=== PATIENT | female | born 1970 ===

== ENCOUNTER 2016-12-02 13:27 | Inpatient (IN) ==
--- NOTE | 2016-12-02 14:22 | Emergency Department Note ---
Ken Moya Hilary, am scribing for, and in the presence of, Colt Thomas MD 13:55. William Moya Phillip K, MD, personally performed the services described in this documentation, ascribed by Adelaide Rogers in my presence, and it is both accurate and complete [id number] . Arrival - Arrival Chief Complaint: Extremity Problem ED Nursing Triage Note: gangrene lt pointer finger. Mode of Arrival: Stretcher Limitations: Uncooperative (was sleeping and wouldnt wake up) Source: RN Notes Reviewed Time Seen by Provider: 12/02/16 13:37 - History of Present Illness HPI Narrative: Pt is a 46 y/o female brought into the ED via EMS from [place] with c/o gangrene on pts left 4th digit. HPI is limited due to pt sleeping and not providing any information. Pt has a Left foot BKA, Right forefoot amputation, and amputation of 1st - 4th digit on her right hand. At [place] her WBC was normal, H/H was 14 and 47, Glucose was 232 and Creatine was 4.4. Allergies/Adverse Reactions: Allergies Allergy/AdvReac Type Severity Reaction Status Date / Time No Known Allergies Allergy Unverified 07/26/16 23:06 Home Medications: Home Medications Medication Instructions Recorded Confirmed Type Calcium Acetate [Phoslo] 667 mg PO BID W/MEALS capsule 11/06/15 07/16/16 Rx Insulin Lispro [HumaLOG] See Protocol SUBCUT ACHS ml 11/06/15 07/16/16 Rx Insulin Detemir [Levemir] 5 unit SUBCUT BEDTIME #0 02/07/16 07/16/16 Rx HYDROcodone/ACETAMIN 5-325 [E[place] 1 tablet PO Q4H PRN #5 tablet 07/16/16 Rx 5-325] Unable To Obtain [Unable to Obtain] 07/26/16 07/26/16 History Review of System - Review of System ROS unobtainable: due to mental status Medical,Surgical,& Family Hx - Medical History Cardio: History of: Cerebrovascular Disease (questionable TIA), CHF, Hypertension, [place] No history of: CAD Psychological: History of: Anxiety Disorders, Depression Neurology: History of: Cerebrovascular Accident, TIA No history of: Seizures HEENT: History of: Eye Problem (Poor Vision) Endocrine: History of: Diabetes Mellitus (IDDM), Dyslipidemia Respiratory: History of: Obstructive Sleep Apnea Renal: History of: Dialysis (Tues, Thur, Sat), Renal Failure Musculoskeletal: History of: Amputation (Right Foot; Left BKA; Right second, third, and fourth digit amputation), Musculoskeletal Problems (Arthritis) Hematology: History of: Anemia Reproductive: No history of: Complication Other: History of: Skin Problems (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) No history of: Anesthesia Reactions - Surgical History Cardiac Surgeries: Patient Denies: Cardiac Catheterization Neurologic Surgeries: Patient denies: Neurologic Surgery HEENT Surgeries: Patient denies: Eye Surgery, Tonsilectomy & Adenoidectomy Abdominal Surgeries: Surgical HX of: Appendectomy Patient denies: Abdominal Surgery Reproductive Surgeries: Surgical HX of;: Section, Gynecologic Surgery Patient denies;: Genitourinary Surgery Orthopedic Surgeries: Surgical HX of;: Implanted Devices (Right Subclavian Dilaysis Catheter), Orthopedic Surgery (Left BKA, Right Foot Amputation) - Family History Family History: Reports;: Family Cancer, Family Diabetes, Family Heart Disease, Family Hypertension - Social History Smoking Status: Smoker, status unknown Frequency of Alcohol Use: None Type of Drug Use: None Exam Vital Signs: Vital Signs Temperature 98.9 F 12/02/16 13:28 Pulse Rate 100 H 12/02/16 13:28 Respiratory Rate 18 12/02/16 13:28 Blood Pressure 113/88 12/02/16 13:28 O2 Sat by Pulse Oximetry 97 12/02/16 13:28 - General Exam limited due to: uncooperative - Head Head exam: Present: atraumatic, normocephalic - ENT ENT exam: Present: other (poor dentition) - Neck Neck exam: Present: full ROM, trachea midline. Absent: tenderness - Chest Chest inspection: Present: symmetric chest wall rise - Respiratory Respiratory exam: Present: normal lung sounds bilaterally - Cardiovascular Cardiovascular exam: Present: normal rhythm, tachycardia - Abdominal Exam Abdominal exam: Present: soft. Absent: distention - Extremities Exam Extremities exam: Present: other (Pt has a left BKA, Right forefoot amputation, 1st - 4th digits amputated on right hand and gangrene on left hand 4th digit) - Back Exam Back exam: Present: full ROM - Psychiatric Psychiatric exam: Present: other (Pt would not wake up, answer questions or follow commands) - Skin Skin exam: Present: warm, dry, intact Disposition Clinical Impression: gangrene left fourth finger, Diabetes mellitus, End stage renal disease on dialysis Case discussed with: patient Disposition: Still a Patient Condition: Guarded Additional Instructions: Admit to
--- NOTE | 2016-12-02 16:04 | General Surgery Consult Note ---
Assessment and Plan (1) Dry gangrene Status: Acute Assessment and plan: Dry gangrene of the left ring finger with surrounding cellulitis. Recommend IV antibiotics which will allow the cellulitis to calm down in the digit to further declare itself. We will request arteriogram from interventional radiology and appreciate their assistance. In the interim, provide wound care and symptom management with medication for pruritus and pain. The patient's family member described the long-term plan patient will be hospice upon discharge. Further surgical planning pending patient's response to this plan of care. Current Visit: Yes History of Present Illness Chief complaint: Gangrene left ring finger History of present illness: Ms. Leonard is a 46 year old female with extensive medical history including end- stage renal disease on dialysis Friday schedule, CAD status post [place] and cardiac catheterization, CHF, CVA and seizures presenting to the emergency department with complaints of a left gangrenous finger. Patient has undergone multiple amputations including left BKA, right transmetatarsal mutation, multiple amputations of digits of the left hand. Family members present assisting in the history according the patient's current condition began approximately 10-14 days ago with the patient biting the tip of her finger. He was initially treated with local care, but this quickly progressed to involve the entire finger and the tip of the digit is no longer present. Patient complains of there is pain and pruritus associated, but no active drainage, fever or chills. The patient has multiple, severe comorbidities and the family has recently had hospice consultation in their home although she is not officially on hospice at this time. Family member present reports this will be the dissipated plan upon discharge, but they want her current finger handled so that she is no longer pain. Home Medications Medication Instructions Recorded Confirmed Type Calcium Acetate [Phoslo] 667 mg PO BID W/MEALS capsule 11/06/15 12/02/16 Rx Insulin Lispro [HumaLOG] See Protocol SUBCUT ACHS ml 11/06/15 12/02/16 Rx Insulin Detemir [Levemir] 5 unit SUBCUT BEDTIME #0 02/07/16 12/02/16 Rx Allergies Allergy/AdvReac Type Severity Reaction Status Date / Time No Known Allergies Allergy Unverified 07/26/16 23:06 Medical,Surgical,& Family Hx - Medical History Cardio: History of: Cerebrovascular Disease (questionable TIA), CHF, Hypertension, [place] No history of: CAD Psychological: History of: Anxiety Disorders, Depression Neurology: History of: Cerebrovascular Accident, TIA No history of: Seizures HEENT: History of: Eye Problem (Poor Vision) Endocrine: History of: Diabetes Mellitus (IDDM), Dyslipidemia Respiratory: History of: Obstructive Sleep Apnea Renal: History of: Dialysis (Tues, Thur, Sat), Renal Failure Musculoskeletal: History of: Amputation (Right Foot; Left BKA; Right second, third, and fourth digit amputation), Musculoskeletal Problems (Arthritis) Hematology: History of: Anemia Reproductive: No history of: Complication Other: History of: Skin Problems (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) No history of: Anesthesia Reactions - Surgical History Cardiac Surgeries: Sugical HX of: Vascular Access Devices Patient Denies: Cardiac Catheterization Neurologic Surgeries: Patient denies: Neurologic Surgery HEENT Surgeries: Patient denies: Eye Surgery, Tonsilectomy & Adenoidectomy Abdominal Surgeries: Surgical HX of: Appendectomy Patient denies: Abdominal Surgery Reproductive Surgeries: Surgical HX of;: Section, Gynecologic Surgery Patient denies;: Genitourinary Surgery Orthopedic Surgeries: Surgical HX of;: Implanted Devices (Right Subclavian Dilaysis Catheter), Orthopedic Surgery (Left BKA, Right Foot Amputation) Additional Surgical History: Multiple amputations - Family History Family History: Reports;: Family Cancer, Family Diabetes, Family Heart Disease, Family Hypertension - Social History Smoking Status: Smoker, status unknown Frequency of Alcohol Use: None Type of Drug Use: None - Constitutional Constitutional: Present: as per HPI - Cardiovascular Cardiovascular: Absent: chest pain at rest, orthopnea, palpitations - Respiratory Respiratory: Absent: cough - Gastrointestinal Gastrointestinal: Absent: abdominal pain, diarrhea, nausea, vomiting - Genitourinary Genitourinary: Absent: dysuria, hematuria Hematologic/Lymphatic: Absent: easy bleeding, easy bruising Exam - Constitutional Vitals: Period Temp Pulse Resp BP Sys/Jaimes Pulse Ox Last 24 Hr 98.9 F-98.9 F 100-100 18-18 113-113/88-88 97 General appearance: other (Chronically ill-appearing with multiple amputation sites.) - Head Head exam: Present: normocephalic, atraumatic - Eye Eye exam: Absent: conjunctival injection, periorbital swelling, scleral icterus - ENT Mouth exam: Present: other (Poor dentition) - Neck Neck exam: Present: other (Radial pulse 1+. Ulnar pulse thready.) - Respiratory Respiratory exam: Present: clear to auscultation bilaterally - Cardiovascular Cardiovascular exam: Present: RRR - GI/Abdominal GI/Abdominal exam: Present: normal bowel sounds, soft. Absent: distended - Extremities Exam Extremities exam: Present: other (Appetite patient sites clean and dry noted of the left BKA stump, right transmit residual limb, and right hand residual. Left hand and forearm with discoloration and arterial ulcerations throughout which are dry. The there is dry gangrene noted of the full length of the right ring finger with the majority of the distal phalanx absent. There is associated erythema and edema into the palm of the hand which is tender with the patient and extends to the adjacent digits and the long finger is also concerning for vascular compromise with deeper arterial ulceration noted over the dorsum at the level of the MCP joint. Cap refill is 34 seconds in the remaining digits except for the fourth digit.) - Neurological Exam Neurological exam: Present: alert, oriented X3 Results - Labs Labs: Outside studies reviewed this patient was transferred from [facility] : White blood cell count 8.5, hemoglobin 14; BMP with sodium 137 potassium 3.1 chloride 98 CO2 24.3 BUN 44 creatinine 4.4 blood glucose 232
--- NOTE | 2016-12-02 16:40 | XRay Report ---
Referring Physician: JOSE Kraus Exam: XR hand 3V LT Date: December 02, 2016 at 4:22 PM Reason: Gangrene left ring finger Comparison: Left finger x-rays December 02, 2016 at 11:50 AM Findings: There has been amputation of the fourth digit to the PIP joint. The skin in this region is irregular, which may be related to a wound. There is also ill-defined lucency within the fourth middle phalanx and distal aspect of the fourth proximal phalanx, which may be related to osteomyelitis. There is diffuse demineralization at the left hand and left wrist. Mild reabsorption is seen at the distal tuft of the second distal phalanx. This is nonspecific and can be seen in various processes. No acute fracture is identified. There is extensive arterial calcification. Impression: 1. There has been amputation of the fourth digit to the PIP joint. The skin is irregular in this region, which may be related to a wound. 2. There is mild scattered lucency within the left fourth middle phalanx and distal aspect of the left fourth proximal phalanx. This could represent osteomyelitis. However, correlation with a bone scan or MRI is recommended. 3. There appears to be diffuse demineralization at the left hand and wrist and nonspecific reabsorption at the distal tuft of the distal second phalanx. 4. Extensive arterial calcification. PROCEDURE INTERPRETED AT [facility] DEPARTMENT OF RADIOLOGY Final Report Signed by: Dr. Danny iL
--- NOTE | 2016-12-02 16:48 | Hospitalist History & Physical ---
<Shane Dimas - Last Filed: 12/02/16 16:34> Assessment and Plan - Time spent with patient Time spent with patient: Greater than 30 minutes (1) Dry gangrene Status: Acute Assessment and plan: Consult general surgery. Start empiric antibiotic coverage. Current Visit: Yes (2) ESRD (end stage renal disease) on dialysis Status: Acute Assessment and plan: Consult nephrology for continued dialysis. Current Visit: No (3) Diabetes mellitus Status: Acute Assessment and plan: Initiate SSI and basal for coverage until with can reconcile home meds. Accu- cheks ACHS Current Visit: Yes History of Present Illness Chief complaint: Dry gangrene History of present illness: Ms. Leonard is an unfortunate 46 year old female with a history significant for diabetes mellitus, hypertension, CHF, and TIA with several amputations who presents to the ED as a transfer from [facility] for further evaluation of a gangrenous left fourth digit. The patient has had several amputations including a left BKA, right transmetatarsal amputation, four digits of the right hand with 2nd digit preservation. On exam, the patient is not very responsive; however, the patient's daughter is at bedside and assisted with history stating that this began approx. 2 weeks ago with necrosis of the tip of the left ring finger. It has quickly progressed to involve the entire finger down to the PIP. Apparently, a home health nurse was concerned with the patient' s finger and recommended she go to the [facility] for evaluation. There, she was seen in the ED and transferred here to [facility] for further evaluation. General surgery is following and will evaluate prospect of amputation. Daughter states that the patient has had a recent decrease in appetite and a dry cough. She complains of pain pruritis associated with the finger but no drainage. She will be admitted to hospital medicine service for further evaluation and management with empiric antibiotic coverage. Case has been discussed with Dr. Chambers who will follow with an addendum. Home Medications Medication Instructions Recorded Confirmed Type Calcium Acetate [Phoslo] 667 mg PO BID W/MEALS capsule 11/06/15 12/02/16 Rx Insulin Lispro [HumaLOG] See Protocol SUBCUT ACHS ml 11/06/15 12/02/16 Rx Insulin Detemir [Levemir] 5 unit SUBCUT BEDTIME #0 02/07/16 12/02/16 Rx Allergies Allergy/AdvReac Type Severity Reaction Status Date / Time No Known Allergies Allergy Unverified 07/26/16 23:06 Medical,Surgical,& Family Hx - Medical History Cardio: History of: Cerebrovascular Disease (questionable TIA), CHF, Hypertension, [place] No history of: CAD Psychological: History of: Anxiety Disorders, Depression Neurology: History of: Cerebrovascular Accident, TIA No history of: Seizures HEENT: History of: Eye Problem (Poor Vision) Endocrine: History of: Diabetes Mellitus (IDDM), Dyslipidemia Respiratory: History of: Obstructive Sleep Apnea Renal: History of: Dialysis (Tues, Thur, Sat), Renal Failure Musculoskeletal: History of: Amputation (Right Foot; Left BKA; Right second, third, and fourth digit amputation), Musculoskeletal Problems (Arthritis) Hematology: History of: Anemia Reproductive: No history of: Complication Other: History of: Skin Problems (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) No history of: Anesthesia Reactions - Surgical History Cardiac Surgeries: Sugical HX of: Vascular Access Devices Patient Denies: Cardiac Catheterization Neurologic Surgeries: Patient denies: Neurologic Surgery HEENT Surgeries: Patient denies: Eye Surgery, Tonsilectomy & Adenoidectomy Abdominal Surgeries: Surgical HX of: Appendectomy Patient denies: Abdominal Surgery Reproductive Surgeries: Surgical HX of;: Section, Gynecologic Surgery Patient denies;: Genitourinary Surgery Orthopedic Surgeries: Surgical HX of;: Implanted Devices (Right Subclavian Dilaysis Catheter), Orthopedic Surgery (Left BKA, Right Foot Amputation) - Family History Family History: Reports;: Family Cancer, Family Diabetes, Family Heart Disease, Family Hypertension - Social History Smoking Status: Never smoker Frequency of Alcohol Use: None Type of Drug Use: None Marital Status: Lives With:: Spouse Functional capacity: bed bound - Constitutional Constitutional: Present: fatigue, weakness. Absent: night sweats, weight gain - EENT Eyes: Absent: blurry vision, loss of vision Ears: Absent: decreased hearing, ear pain Nose, mouth and throat: Absent: headache(s), neck mass, neck pain - Cardiovascular Cardiovascular: Absent: chest pain at rest, chest pain with activity, dyspnea, edema, radiating jaw, neck or arm pain - Respiratory Respiratory: Present: cough. Absent: hemoptysis, wheezing - Gastrointestinal Gastrointestinal: Absent: abdominal pain, change in bowel habits, diarrhea, nausea, vomiting - Genitourinary Genitourinary: Absent: difficulty urinating, dysuria - Musculoskeletal Musculoskeletal: Absent: arthralgias, joint swelling, muscle weakness - Neurological Neurological: Absent: abnormal speech, dizziness - Psychiatric Psychiatric: Absent: anxiety, depression - Endocrine Endocrine: Absent: cold intolerance, fatigue, heat intolerance - Hematologic/Lymphatic Hematologic/Lymphatic: Absent: easy bleeding, easy bruising Exam - Constitutional General appearance: no acute distress, under weight - Head Head exam: Present: normocephalic, atraumatic - Eye Eye exam: Present: EOMI. Absent: conjunctival injection, laceration to eyelids - ENT ENT exam: Present: normal exam, normal external ear exam - Neck Neck exam: Present: normal inspection. Absent: lymphadenopathy, tenderness, thyromegaly - Respiratory Respiratory exam: Present: decreased breath sounds. Absent: rhonchi, wheezes - Cardiovascular Cardiovascular exam: Present: regular rate and rhythm. Absent: carotid bruit - GI/Abdominal GI/Abdominal exam: Present: normal bowel sounds, soft. Absent: distended, firm , mass - Extremities Exam Extremities exam: Present: other (L BKA, R transmetatarsal amputation, multiple digit amputation of right hand) - Back Exam Back exam: Absent: CVA tenderness (L), CVA tenderness (R) - Psychiatric Psychiatric exam: Present: flat affect - Skin Skin exam: Present: abrasion, other (ecchymosis, gangrenous left 4th digit) <Valeriy Chambers - Last Filed: 12/02/16 17:16> History of Present Illness History of present illness: Ms. Leonard is a 46 year old female with a past medical history of type 1 diabetes mellitus, peripheral arterial disease status post a right transmetatarsal amputation, a left below knee amputation, amputations of the 4 digits of the right hand, hypertension, coronary artery disease, congestive heart failure, cerebrovascular disease, and end-stage renal disease on hemodialysis. As noted by physician assistant manager quality management Shane Dimas, approximately 2 weeks prior to admission she began to develop necrosis of the tip of the left right ring finger ultimately extending to involve the entire finger. She went to [facility] for evaluation from which she was transferred to [facility] for further evaluation and management. She has been previously under the care of general surgery at this facility for her previously noted amputations. I have examined the patient, reviewed all the pertinent laboratory and imaging test results, and discussed with the family, physician assistant manager quality management GABRIEL Braga, and general surgery my assessment and plans. She will be begun on intravenous antibiotics and undergo peripheral angiography at the request of general surgery to evaluate for any further surgical procedures.
[2016-12-02] MEDS ORDERED: GLUCAGON 1 MG VIAL IM PRN (17:03)
[2016-12-02] MEDS ORDERED: ACETAMINOPHEN 325 MG TABLET PO PRN (17:03)
[2016-12-02] MEDS ORDERED: DEXTROSE 50% 25 GM/50 ML VIAL IV PRN (17:03)
[2016-12-02] MEDS ORDERED: ONDANSETRON 4 MG/2 ML VIAL IV PRN (17:03)
[2016-12-02] MEDS ORDERED: ZALEPLON 5 MG CAPSULE PO PRN (17:03)
[2016-12-02] MEDS ORDERED: LACTULOSE 20 GM/30 ML UDCUP PO PRN (17:03)
[2016-12-02] MEDS ORDERED: DOCUSATE SODIUM 100 MG CAPSULE PO PRN (17:03)
[2016-12-02 17:56] LABS: Basophils # 0.1 10*3/uL (0.0-0.2); Basophils % 0.6 % (0.0-0.8); Eosinophils # 0.1 10*3/uL (0.0-0.87); Eosinophils % 1.3 % (0.00-10.9); Hematocrit 43.8 VOL% (35.7-47.0); Hemoglobin 13.9 GM/DL (12.0-16.0); Immature Granulocytes % 0.3 %; Immature Granulocytes Absolute 0.03 #; Lymphocytes # 1.4 10*3/uL (1.4-4.0); Lymphocytes % 14.2 % (21.3-54.2); Mean Corpuscular HGB Conc 31.7 GM/DL (32-36); Mean Corpuscular Hemoglobin 28 PG (27-34); Mean Platelet Volume 11.6 FL (9.6-12.0); Monocytes # 0.6 10*3/uL (0.11-0.8); Monocytes % 5.9 % (1.7-12.7); Neutrophils # 7.8 10*3/uL (1.4-7.4); Neutrophils % 77.7 % (38.7-73.9); Platelet Count 180 T/CUMM (130-400); Red Blood Count 4.98 MC/CUMM (3.8-5.5); Red Cell Distribution Width 15.6 % (9.3-17.3)
[2016-12-02 18:19] LABS: Calcium 8.7 MG/DL (8.5-10.1); Magnesium 2.3 MG/DL (1.8-2.4); Osmolality,Calculated 289.8 MOS/KG (273-304); Potassium 4.5 MMOL/L (3.5-5.1); Risk Ratio 2.64; VLDL CHOLESTEROL 23.6 MG/DL
[2016-12-02] MEDS: INSULIN LISPRO 100 UNIT/ML SUBCUT SCH (20:44)
[2016-12-02] MEDS: INSULIN GLARGINE 100 UNIT/ML SUBCUT SCH (20:45)
--- NOTE | 2016-12-03 07:43 | Hospitalist Progress Note ---
Assessment and Plan (1) Dementia Status: Acute Assessment and plan: The patient is unresponsive. Her family states that she does not interact with them except for painful stimuli. No intervention is planned at this time. Current Visit: Yes (2) Peripheral vascular disease due to secondary diabetes mellitus Problem details: S/p transmetatarsal amputation of the right forefoot. Also with new c/o of pain in the left lateral foot and lower leg. Status: Chronic Assessment and plan: He was undergone multiple amputation procedures as indicated above. Current Visit: No (3) Poorly controlled type 1 diabetes mellitus Status: Acute Assessment and plan: Her blood glucose on admission was 197. She is presently being treated with glargine insulin 10 units subcutaneous twice daily and sliding scale regular insulin coverage. Current Visit: No (4) Ischemic necrosis of finger Status: Acute Assessment and plan: She is admitted to the hospital with dry gangrene of the third finger of her left hand. Management at the present time includes intravenous antibiotics and surgical decision as per Drs. Arreola and Ailyn Current Visit: No (5) ESRD (end stage renal disease) on dialysis Problem details: No acute indication for HD today. Status: Chronic Assessment and plan: She will continue regularly scheduled hemodialysis as per nephrology. Current Visit: No Hospitalist: Subjective Interval history: Ms. Leonard is a 46-year-old with multiple medical problems including the following: Severe peripheral vascular disease including a left below-knee amputation, right transmetatarsal amputation, and multiple amputations of digits of the left hand; end-stage renal disease on hemodialysis ; type 1 diabetes mellitus; coronary artery disease; cerebrovascular disease; seizure disorder; congestive heart failure; and dementia. She was rehospitalized here yesterday with gangrene involving the third finger of her right hand. She was seen in consultation by Dr. Robertson of general surgery. He recommended that she be treated with intravenous antibiotics and has consulted Dr. Arreola who has performed the previous surgical procedures on the patient. The patient does not communicate and the family is receptive to hospice care. She appears comfortable at the present time. Exam - Constitutional Vitals: Period Temp Pulse Resp BP Sys/Jaimes Pulse Ox Last 24 Hr 98.2 F-99.1 F 60-101 16-20 111-123/80-92 96-100 General appearance: no acute distress, cachectic - Head Head exam: Present: normal inspection, normocephalic - Eye Eye exam: Present: EOMI Pupils: Present: OXANA - Neck Neck exam: Present: normal inspection - Respiratory Respiratory exam: Present: clear to auscultation bilaterally - Cardiovascular Cardiovascular exam: Present: regular rate and rhythm - GI/Abdominal GI/Abdominal exam: Present: normal bowel sounds, soft, other (Nontender with no palpable masses or hepatosplenomegaly) - Extremities Exam Extremities exam: Present: other (Amputations as indicated above and gangrene involving the third finger of the left hand.) - Back Exam Back exam: Present: normal inspection - Neurological Exam Neurological exam: Present: other (Responsive to pain but not to conversation) - Skin Skin exam: Present: normal color, warm, dry Results - Labs CBC & BMP: 12/02/16 17:43 12/02/16 17:43 Quality Measures - Stroke Symptom Onset Unknown: No
[2016-12-03] MEDS: INSULIN LISPRO 100 UNIT/ML SUBCUT SCH ×4 (07:58→22:16)
--- NOTE | 2016-12-03 08:32 | Nephrology Consult Note ---
History of Present Illness Chief complaint: ESRD History of present illness: Ms. Leonard is a 46 year old female with end-stage renal disease and severe peripheral vascular disease she has had amputations of fingers on both hands and has active wounds on the left hand. She is been receiving IV antibiotics and wound care. The antibiotics were given during hemodialysis. She dialyzes on a Friday schedule in [place] and we will dialyze her while she is here. On exam she is apathetic as is her baseline she is very thin lady she is awake does make eye contact with does not engage in conversation today. Chest is clear with a hyperdynamic precordium heart without rub or gallop abdomen soft nontender extremities are very small she has a right groin dialysis catheter in place. Heavily dressed left hand is present and several fingers have been amputated from the right hand. Impression chronic wounds #2 end-stage renal disease Plan will dialyze while here and we can continue her IV antibiotics. Home Medications Medication Instructions Recorded Confirmed Type Calcium Acetate [Phoslo] 667 mg PO BID W/MEALS capsule 11/06/15 12/02/16 Rx Allergies Allergy/AdvReac Type Severity Reaction Status Date / Time No Known Allergies Allergy Verified 12/02/16 18:00 Medical,Surgical,& Family Hx - Medical History Cardio: History of: Cerebrovascular Disease (questionable TIA), CHF, Hypertension, [place] No history of: CAD Psychological: History of: Anxiety Disorders, Depression Neurology: History of: Cerebrovascular Accident, TIA No history of: Seizures HEENT: History of: Eye Problem (Poor Vision) Endocrine: History of: Diabetes Mellitus (IDDM), Dyslipidemia Respiratory: History of: Obstructive Sleep Apnea Renal: History of: Dialysis (, Fri), Renal Failure Musculoskeletal: History of: Amputation (Right Foot; Left BKA; Right second, third, and fourth digit amputation), Musculoskeletal Problems (Arthritis) Hematology: History of: Anemia Reproductive: No history of: Complication Other: History of: Skin Problems (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) No history of: Anesthesia Reactions - Surgical History Cardiac Surgeries: Sugical HX of: Vascular Access Devices Patient Denies: Cardiac Catheterization Neurologic Surgeries: Patient denies: Neurologic Surgery HEENT Surgeries: Patient denies: Eye Surgery, Tonsilectomy & Adenoidectomy Abdominal Surgeries: Surgical HX of: Appendectomy Patient denies: Abdominal Surgery Reproductive Surgeries: Surgical HX of;: Section, Gynecologic Surgery Patient denies;: Genitourinary Surgery Orthopedic Surgeries: Surgical HX of;: Implanted Devices (Right Subclavian Dilaysis Catheter), Orthopedic Surgery (Left BKA, Right Foot Amputation) - Family History Family History: Reports;: Family Cancer, Family Diabetes, Family Heart Disease, Family Hypertension - Social History Smoking Status: Never smoker Frequency of Alcohol Use: None Type of Drug Use: None Review of Systems 12 point system: reviewed and no additional remarkable complaints except as stated Exam - Vital Signs Vital signs: Period Temp Pulse Resp BP Sys/Jaimes Pulse Ox Last 24 Hr 98.2 F-99.1 F 60-101 16-20 111-123/80-92 96-100 - General Appearance General appearance: well-developed, well-nourished, appears started age Neck: no JVD, no thyromegaly, no carotid bruit, supple Respiratory: no kyphosis, no scoliosis Cardiology: no murmurs, no rub, no gallops, no edema, regular rate, regular rhythm, normal S1, normal S2 Gastrointestinal: normoactive bowel sounds Integumentary: no rash, warm and dry Neurologic: no focal deficit, no asterixis, alert and oriented x3, reflexes 2+ and symmetric, gait normal, strength 5/5 Musculoskeletal: no deformities, no erythema, no cyanosis, no clubbing Psychiatric: mood/affect appropriate (amputated fingers r hand, dialysis cath in r groin), cooperative Results - Labs CBC & BMP: 12/02/16 17:43 12/02/16 17:43 Assessment and Plan (1) End stage renal disease Problem details: No acute indication for HD at this time. 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 Continue IV antibiotics. We can manage in or outpatient.
[2016-12-03] MEDS: PANTOPRAZOLE 40 MG TABLET PO SCH (09:06)
[2016-12-03] MEDS: ENOXAPARIN 30 MG/0.3 ML SYRINGE SUBCUT SCH (09:06)
--- NOTE | 2016-12-03 10:17 | General Surgery Progress Note ---
Assessment and Plan (1) Dry gangrene Status: Acute Assessment and plan: This patient has gangrene of her left ring finger. She is going on hospice but would like the finger amputated because of itching and pain. I have discussed this with the plastic surgeon is been seeing her as an outpatient and he has asked me to take care of this while she is here which I am happy to do. We will set her up for an amputation of her left fourth finger tomorrow. Current Visit: Yes Subjective Patient reports: Present: no new complaints, afebrile Exam - Constitutional Vitals: Period Temp Pulse Resp BP Sys/Jaimes Pulse Ox Last 24 Hr 97.2 F-99.1 F 60-101 16-20 111-123/80-92 96-100 General appearance: no acute distress, under weight - Head Head exam: Present: normal inspection, normocephalic - Eye Eye exam: Present: EOMI Pupils: Present: OXANA - ENT ENT exam: Present: normal exam Mouth exam: Present: normal external inspection, normal voice - Neck Neck exam: Present: normal inspection, trachea midline - Respiratory Respiratory exam: Present: clear to auscultation bilaterally. Absent: accessory muscle use, chest wall tenderness - Cardiovascular Cardiovascular exam: Present: RRR. Absent: systolic murmur, tachycardia - GI/Abdominal GI/Abdominal exam: Present: soft. Absent: tenderness, rebound - Extremities Exam Extremities exam: Present: other (multiple prior amputations. Necrotic left fourth finger) - Back Exam Back exam: Present: normal inspection - Neurological Exam Neurological exam: Present: alert, oriented X3 Speech: Present: normal - Skin Skin exam: Present: normal color, warm Results - Labs CBC & BMP: 12/02/16 17:43 12/02/16 17:43 Quality Measures - Stroke Symptom Onset Unknown: No
--- NOTE | 2016-12-03 12:11 | Dialysis Note ---
Dialysis Note - Dialysis Note Patient is seen on dialysis. Tolerating the procedure. Blood pressures noted to be 120/70
[2016-12-03] MEDS ORDERED: HEPARIN 10,000 UNIT/10 ML VIAL IV SCH (13:30)
[2016-12-03] MEDS ORDERED: MEROPENEM 500 MG in SODIUM CHLORIDE 0.9% 100 ML IV SCH (20:00)
[2016-12-03] MEDS: INSULIN GLARGINE 100 UNIT/ML SUBCUT SCH (20:32)
[2016-12-04 05:41] LABS: Basophils # 0.1 10*3/uL (0.0-0.2); Eosinophils # 0.2 10*3/uL (0.0-0.87); Eosinophils % 1.7 % (0.00-10.9); Hematocrit 43.2 VOL% (35.7-47.0); Hemoglobin 14.1 GM/DL (12.0-16.0); Immature Granulocytes % 0.4 %; Immature Granulocytes Absolute 0.04 #; Lymphocytes # 1.2 10*3/uL (1.4-4.0); Lymphocytes % 11.6 % (21.3-54.2); Mean Corpuscular HGB Conc 32.6 GM/DL (32-36); Mean Corpuscular Hemoglobin 28 PG (27-34); Mean Corpuscular Volume 84.9 FL (87-102); Mean Platelet Volume 11.2 FL (9.6-12.0); Monocytes % 9.2 % (1.7-12.7); Neutrophils % 76.1 % (38.7-73.9); Platelet Count 265 T/CUMM (130-400); Red Blood Count 5.09 MC/CUMM (3.8-5.5); Red Cell Distribution Width 15.4 % (9.3-17.3); White Blood Count 10.5 T/CUMM (4-12)
[2016-12-04 06:18] LABS: Calcium 8.5 MG/DL (8.5-10.1); Osmolality,Calculated 289.2 MOS/KG (273-304); Potassium 3.9 MMOL/L (3.5-5.1)
--- NOTE | 2016-12-04 07:45 | Hospitalist Progress Note ---
Assessment and Plan (1) Dementia Status: Acute Assessment and plan: The patient is unresponsive. Her family states that she does not interact with them except for painful stimuli. No intervention is planned at this time. Current Visit: Yes (2) Peripheral vascular disease due to secondary diabetes mellitus Problem details: S/p transmetatarsal amputation of the right forefoot. Also with new c/o of pain in the left lateral foot and lower leg. Status: Chronic Assessment and plan: She has undergone multiple amputation procedures as indicated above. The family has opted for nonoperative treatment. Current Visit: No (3) Poorly controlled type 1 diabetes mellitus Status: Acute Assessment and plan: Her blood glucoses todat have been 265 and 337. . She is presently being treated with glargine insulin 10 units subcutaneous twice daily and sliding scale regular insulin coverage. Current Visit: No (4) Ischemic necrosis of finger Status: Acute Assessment and plan: She is admitted to the hospital with dry gangrene of the third finger of her left hand. Management at the present time includes intravenous antibiotics and surgical decision as per Drs. Arreola and Ailyn Current Visit: No (5) ESRD (end stage renal disease) on dialysis Problem details: No acute indication for HD today. Status: Chronic Assessment and plan: She will continue regularly scheduled hemodialysis as per nephrology. Current Visit: No Hospitalist: Subjective Interval history: The patient has dry gangrene of the left ring finger. General surgery discussed the options for Ms. Leonard. The family has decided for nonoperative management. They have requested consultation with hospice, which is presently pending. In the meantime, I will continue intravenous antibiotics and local wound care. Exam - Constitutional Vitals: Period Temp Pulse Resp BP Sys/Jaimes Pulse Ox Last 24 Hr 97.2 F-99.2 F 78-94 16-20 90-122/62-86 93-100 General appearance: no acute distress - Head Head exam: Present: normal inspection, normocephalic - Eye Eye exam: Present: EOMI Pupils: Present: OXANA - Neck Neck exam: Present: normal inspection - Respiratory Respiratory exam: Present: clear to auscultation bilaterally - Cardiovascular Cardiovascular exam: Present: regular rate and rhythm - GI/Abdominal GI/Abdominal exam: Present: normal bowel sounds, soft - Extremities Exam Extremities exam: Present: other (Amputations as indicated above and dry gangrene of the left ring finger.) - Neurological Exam Neurological exam: Present: other (Unresponsive except for painful stimuli.) - Skin Skin exam: Present: normal color, warm, dry Results - Labs CBC & BMP: 12/04/16 04:51 12/04/16 04:51 Quality Measures - Stroke Symptom Onset Unknown: No
--- NOTE | 2016-12-04 07:53 | Discharge Summary ---
Hospital Course - Hospital Course Hospital Course: Ms. Leonard is a 46-year-old with multiple medical problems including the following: Severe peripheral vascular disease including left below -knee amputation, right transmetatarsal amputation, and multiple amputations of the digits of the left hand; end-stage renal disease on hemodialysis; type 1 diabetes mellitus; coronary artery disease; cerebrovascular disease; seizure disorder; dementia; and congestive heart failure. She was hospitalized here on 12/02/16 with dry gangrene of the ring finger of her right hand. She was seen in consultation by Dr. Robertson of general surgery she had previously undergone her amputation procedures by Dr. Arreola. After discussion with the surgeons, the family elected to manage her present problem nonoperatively. She was treated in the hospital with intravenous antibiotics including meropenem, although there was no evidence of active infection. Family requested consultation with hospice. Who is not deemed to be a suitable hospice patient as long as she continues her hemodialysis for end-stage renal disease. Diagnosis - Discharge Diagnosis (1) Dementia Status: Chronic (2) Peripheral vascular disease due to secondary diabetes mellitus Status: Chronic (3) Poorly controlled type 1 diabetes mellitus Status: Chronic (4) Ischemic necrosis of finger Status: Acute (5) ESRD (end stage renal disease) on dialysis Status: Chronic Discharge Plan - Discharge Data Disposition: Home Health Service Condition at Discharge: Guarded Discharge Diet: advance to your usual diet - Discharge Medications New Insulin Glargine [Lantus] 15 units SUBCUT BEDTIME #1 syringe Continue Calcium Acetate [Phoslo] 667 mg PO BID W/MEALS capsule - Follow Up or Referral - Forms/Instructions Exam - Constitutional Vitals: Period Temp Pulse Resp BP Sys/Jaimes Pulse Ox Last 24 Hr 97.2 F-99.2 F 78-94 16-20 90-122/62-86 93-100 General appearance: no acute distress - Head Head exam: Present: normal inspection, normocephalic - Eye Eye exam: Present: EOMI Pupils: Present: OXANA - Neck Neck exam: Present: normal inspection - Respiratory Respiratory exam: Present: clear to auscultation bilaterally - Cardiovascular Cardiovascular exam: Present: regular rate and rhythm - GI/Abdominal GI/Abdominal exam: Present: normal bowel sounds, soft - Extremities Exam Extremities exam: Present: other (Amputations as indicated above and gangrene involving the third finger of the left hand.) - Back Exam Back exam: Present: normal inspection - Neurological Exam Neurological exam: Present: other (Unresponsive except to painful stimuli.) - Skin Skin exam: Present: normal color, warm, dry Discharge Results Procedures and tests throughout hospitalization: Pending Orders 12/05/16 04:00 Basic Metabolic Panel IN AM Comp Blood Count Auto Diff IN AM 12/06/16 04:00 Basic Metabolic Panel IN AM Comp Blood Count Auto Diff IN AM Labs on day of discharge: Labs from last 24 hours 12/04/16 12/04/16 12/04/16 07:02 04:51 04:51 WBC 10.5 RBC 5.09 Hgb 14.1 Hct 43.2 MCV 84.9 L MCH 28 MCHC 32.6 RDW 15.4 Plt Count 265 D MPV 11.2 Neut % (Auto) 76.1 H Lymph % (Auto) 11.6 L [place] % (Auto) 9.2 Eos % (Auto) 1.7 Baso % (Auto) 1.0 H Neut # (Auto) 8.0 H Lymph # (Auto) 1.2 L [place] # (Auto) 1.0 H Eos # (Auto) 0.2 Baso # (Auto) 0.1 Immature Gran % 0.4 Nucleated RBC % 0.0 Immature Gran # 0.04 Nucleated RBCs # 0.00 Sodium 134 L Potassium 3.9 Chloride 99 Carbon Dioxide 22 Anion Gap 16.9 H BUN 37 H Creatinine 3.80 H GFR Calculation 9 BUN/Creatinine Ratio 9.00 Glucose 337 H POC Glucose 265 H Calculated Osmolality 289.2 Calcium 8.5 12/03/16 12/03/16 12/03/16 19:13 17:18 16:43 WBC RBC Hgb Hct MCV MCH MCHC RDW Plt Count MPV Neut % (Auto) Lymph % (Auto) [place] % (Auto) Eos % (Auto) Baso % (Auto) Neut # (Auto) Lymph # (Auto) [place] # (Auto) Eos # (Auto) Baso # (Auto) Immature Gran % Nucleated RBC % Immature Gran # Nucleated RBCs # Sodium Potassium Chloride Carbon Dioxide Anion Gap BUN Creatinine GFR Calculation BUN/Creatinine Ratio Glucose POC Glucose 282 H 246 H 61 L Calculated Osmolality Calcium 12/03/16 12/03/16 15:33 07:15 WBC RBC Hgb Hct MCV MCH MCHC RDW Plt Count MPV Neut % (Auto) Lymph % (Auto) [place] % (Auto) Eos % (Auto) Baso % (Auto) Neut # (Auto) Lymph # (Auto) [place] # (Auto) Eos # (Auto) Baso # (Auto) Immature Gran % Nucleated RBC % Immature Gran # Nucleated RBCs # Sodium Potassium Chloride Carbon Dioxide Anion Gap BUN Creatinine GFR Calculation BUN/Creatinine Ratio Glucose POC Glucose 57 L 94 Calculated Osmolality Calcium DS: Provider Date of admission: 12/02/16 15:07 Primary care physician: Ricarda Orourke MD Attending physician on admission: Valeriy Chambers Consults: 12/02/16 17:42 Consult to Dietitian [CONS] Routine Reason for Dietitian: Other 12/03/16 07:50 Consult to Physician [CONS] Routine Comment: hemodialysis Consulting Provider: Freddy Patel Consult to Specialist Group: Nephrology When should Consulting Provider be notified: Now Person Notified: Eunice Date Notified: 12/03/16 Time Notified: 08:19 12/03/16 07:54 Consult to Case Mgmt/Social Srvs [CONS] Routine Reason for Case Mgmt/Social Srvs: Hospice Referral Discharging clinician: Valeriy Chambers Expected date of discharge: 12/04/16
--- NOTE | 2016-12-04 08:03 | General Surgery Progress Note ---
Assessment and Plan (1) Dry gangrene Status: Acute Assessment and plan: The family has decided against surgery at this time and would like to take the patient home and just keep her comfortable. If they change their mind I will be happy to assist as needed. Current Visit: Yes Subjective Patient reports: Present: no new complaints Exam - Constitutional Vitals: Period Temp Pulse Resp BP Sys/Jaimes Pulse Ox Last 24 Hr 97.8 F-99.2 F 78-94 16-20 90-122/62-81 93-100 Results - Labs CBC & BMP: 12/04/16 04:51 12/04/16 04:51 Quality Measures - Stroke Symptom Onset Unknown: No
[2016-12-04 08:21] VITALS: BP 108/71
--- NOTE | 2016-12-04 08:22 | Nephrology Progress Note ---
Nephrology - PN: Subj Interval history: Ms. Leonard is seen in follow-up of her end-stage renal disease. She is stable and noncommunicative this morning she is easily arousable. Her chest is clear heart is regular and without rub or gallop. She is decided against any surgery and family wishes to take her home and keep her comfortable. We will continue to dialyze for now she has never discussed stopping dialysis and wishes to continue it. I agree with discharge she will return to the [place] outpatient dialysis unit on her usual schedule. Exam (PN)-Nephrology - Vital Signs Vital signs: Period Temp Pulse Resp BP Sys/Jaimes Pulse Ox Last 24 Hr 97.8 F-99.2 F 78-94 16-20 90-122/62-81 93-100 - Lab 12/04/16 04:51 12/04/16 04:51 Most recent lab results Calcium 8.5 MG/DL (8.5-10.1) 12/04/16 04:51 Magnesium 2.3 MG/DL (1.8-2.4) 12/02/16 17:43 Assessment and Plan (1) End stage renal disease Problem details: No acute indication for HD at this time. 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
[2016-12-04] MEDS: INSULIN LISPRO 100 UNIT/ML SUBCUT SCH (09:40)
[2016-12-04] MEDS: ENOXAPARIN 30 MG/0.3 ML SYRINGE SUBCUT SCH (09:41)
[2016-12-04] MEDS: PANTOPRAZOLE 40 MG TABLET PO SCH (09:41)
--- NOTE | 2016-12-04 10:52 | Physician Query Form ---
CLICK EDIT DOCUMENT TO SELECT QUERY ANSWER --> OK --> SIGN Suzanne Rangel RN Clinical Optometry Assistant W) [phone] (f) [phone] [email or web address] PROVIDERS: Make your selection(s) from the choices in EACH section by typing an "x" and enter comments in the comment section. Please use your independent medical judgment in providing your response. This request does not imply that any particular answer is desired or expected. CLINICAL INDICATORS: (Providers should not edit this section) Height: 5'1" Weight: 68 POUNDS Affirmative Action Specialist BMI: 14.3 Nutritional supplements: [employer] Make Up Helper notes: RECOMMEND ENTERAL NUTRITION Other clinical notes: "Cachectic" "Very thin" Based on the above, which following choice most accurately represents the patient's nutritional status? ( ) Malnutrition ( ) mild ( ) moderate ( ) severe (x ) Protein calorie malnutrition ( ) mild (x ) moderate ( ) severe ( ) Emaciation due to malnutrition ( ) Nutritional marasmus ( ) Underweight ( ) No nutritional deficiency ( ) Other, please specify: ( ) Clinically unable to determine Mild Malnutrition (BMI < 18.5, % Normal Body Weight 85-95%) Moderate Malnutrition (BMI < 17, % Normal Body Weight 75-85%) Severe Malnutrition (BMI < 16, % Normal Body Weight < 75%) Source: Luz COMMENTS: Use of terms such as suspected, likely, or probable (associated with a specific diagnosis that is being evaluated, monitored, or treated as if it exists) are acceptable and can be restated in the discharge summary if not ruled out. MTDD
== END 2016-12-04 11:10 | disposition home health service (06) | DRG 299 ==
LOC: EDBD → EDUNIT# → N.ED 13:27 → N.EDINP 15:07 → N.5E 16:45

== ENCOUNTER 2016-12-13 13:18 | Inpatient (IN) ==
--- NOTE | 2016-12-13 13:38 | Emergency Department Note ---
Arrival - Arrival Chief Complaint: Extremity Problem ED Nursing Triage Note: pt has a gangrene lt 4th finger. pt was here on 12/02/16 for the same thing Mode of Arrival: Stretcher Limitations: No Limitations Source: Patient, Family, RN Notes Reviewed - History of Present Illness HPI Narrative: Patient is a 46-year-old female with a long history of severe diabetes mellitus and peripheral arterial disease. The patient has an ischemic left fourth finger for which she was hospitalized 1-2 weeks ago and scheduled for amputation but apparently refused at the time. Patient return to the [facility] this morning stating that she indeed wanted to have her finger amputated. The patient has a long history of multiple amputations due to peripheral arterial disease secondary to diabetes mellitus. Patient is Friday hemodialysis. Onset (ago): week(s) (3-4) Consistency: constant Severity: severe Allergies/Adverse Reactions: Allergies Allergy/AdvReac Type Severity Reaction Status Date / Time No Known Allergies Allergy Verified 12/02/16 18:00 Home Medications: Home Medications Medication Instructions Recorded Confirmed Type Calcium Acetate [Phoslo] 667 mg PO BID W/MEALS capsule 11/06/15 12/02/16 Rx Insulin Glargine [Lantus] 15 units SUBCUT BEDTIME #1 syringe 12/04/16 Rx Review of System - Review of System 12 point system: reviewed and no additional remarkable complaints except as stated Medical,Surgical,& Family Hx - Medical History Cardio: History of: Cerebrovascular Disease (questionable TIA), CHF, Hypertension, [place] No history of: CAD Psychological: History of: Anxiety Disorders, Depression Neurology: History of: Cerebrovascular Accident, TIA No history of: Seizures HEENT: History of: Eye Problem (Poor Vision) Endocrine: History of: Diabetes Mellitus (IDDM), Dyslipidemia Respiratory: History of: Obstructive Sleep Apnea Renal: History of: Dialysis (, , Fri), Renal Failure Musculoskeletal: History of: Amputation (Right Foot; Left BKA; Right second, third, and fourth digit amputation), Musculoskeletal Problems (Arthritis) Hematology: History of: Anemia Reproductive: No history of: Complication Other: History of: Skin Problems (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) No history of: Anesthesia Reactions - Surgical History Cardiac Surgeries: Patient Denies: Cardiac Catheterization Neurologic Surgeries: Patient denies: Neurologic Surgery HEENT Surgeries: Patient denies: Eye Surgery, Tonsilectomy & Adenoidectomy Abdominal Surgeries: Surgical HX of: Appendectomy Patient denies: Abdominal Surgery Reproductive Surgeries: Surgical HX of;: Section, Gynecologic Surgery Patient denies;: Genitourinary Surgery Orthopedic Surgeries: Surgical HX of;: Implanted Devices (Right Subclavian Dilaysis Catheter), Orthopedic Surgery (Left BKA, Right Foot Amputation) - Family History Family History: Reports;: Family Cancer, Family Diabetes, Family Heart Disease, Family Hypertension - Social History Smoking Status: Never smoker Frequency of Alcohol Use: None Type of Drug Use: None Exam Vital Signs: Vital Signs Temperature 97.3 F L 12/13/16 13:25 Pulse Rate 82 12/13/16 13:25 Respiratory Rate 18 12/13/16 13:25 Blood Pressure 129/91 12/13/16 13:25 O2 Sat by Pulse Oximetry 100 12/13/16 13:25 GENERAL: This is a chronically and acutely ill-appearing female in no apparent distress. Patient appears much older than her stated age of 46. VITAL SIGNS: Reviewed HEENT: Head is atraumatic and normocephalic. Pupils are equal round react to light. Extraocular movements are intact. Oropharynx is benign with moist mucous membranes. NECK: Neck is soft and supple without tenderness. There are no masses. There is no lymphadenopathy. LUNGS: Lungs are clear to auscultation. Chest rises symmetrically. There is no chest wall tenderness. CV: Heart is regular rate and rhythm without murmurs rubs or gallops. ABDOMEN: Abdomen is soft, nontender to palpation. There are no abdominal abnormal masses palpated. There is no organomegaly. Bowel sounds are present and active. SKIN: Patient has dry gangrene of the left fourth finger EXTREMITIES: Bilateral lower extremity amputations. Amputations of the digits of the right hand. NEUROLOGIC: Awake and alert. Course - Consultations Consultation #1: Discussed with Dr. Rice. Time: 13:46 Consultation #2: Discussed with hospitalist. Patient will be admitted to their service. Time: 13:51 Disposition Clinical Impression: Peripheral arterial disease, Dry gangrene of left fourth finger, End stage renal disease on dialysis, Diabetes mellitus Case discussed with: patient, patient's family Disposition: Still a Patient
--- NOTE | 2016-12-13 14:06 | XRay Report ---
XR chest 1V portable Indication: Respiratory preprocedure evaluation Comparison: 26 July 2016 Findings: The heart and mediastinum are stable in size and configuration. And IVC catheters unchanged in position. The pulmonary vascularity is normal in caliber. No lung infiltrates, effusions, pneumothorax or other abnormality is demonstrated. Impression: No acute findings or significant changes. PROCEDURE INTERPRETED AT [facility] DEPARTMENT OF RADIOLOGY Final Report Signed by: Dr. Tate Bailon
[2016-12-13] MEDS: SODIUM CHLORIDE 0.9% 250 ML IV SCH (14:24)
--- NOTE | 2016-12-13 14:37 | Hospitalist History & Physical ---
Assessment and Plan (1) Diabetes mellitus Status: Acute Assessment and plan: Will start accu-checks with ss coverage. Will obtain HGA1C. Current Visit: Yes Qualifiers: Diabetes mellitus type: type 1 Chronic kidney disease stage: on chronic dialysis (2) End stage renal disease on dialysis Status: Acute Assessment and plan: Will consult Nephrology to management. Current Visit: Yes (3) Peripheral arterial disease Status: Acute Assessment and plan: Seen by surgery in ED; will need eventual amputation when stable. Current Visit: Yes History of Present Illness Chief complaint: ischemic left finger History of present illness: This is a very unfortunate chronically ill 46 year old female that presented to the ED at [facility] as a lateral transfer from the [facility] for evaluation of a ischemic left 4th finger. The patient has a very extensive medical history significant for congestive heart failure, myocardial infarction,peripheral arterial disease, anxiety, depression, insulin-dependent diabetes mellitus, obstructive sleep apnea, arthritis, dyslipidemia, anemia, and end-stage renal disease. She has a surgical history of appendectomy and a long history of amputations to her right foot, left below the knee amputation, right 2nd, 3rd, 4th digits. Apparently, the patient was evaluated for possible amputation and the patient refused. Today , she presented to the [facility] and informed the physician that she wanted to have her finger amputated. She was transferred to [facility] for continuation of care. She was seen by surgery in the ED and deemed unstable to for surgical intervention at this time. After brief discussion with Dr. Martinez and Dr. Subramanian, the patient will be admitted to the hospitalist services for continuation of care and medical management. We will consult nephrology to assist. Home Medications Medication Instructions Recorded Confirmed Type Calcium Acetate [Phoslo] 667 mg PO BID W/MEALS capsule 11/06/15 12/02/16 Rx Insulin Glargine [Lantus] 15 units SUBCUT BEDTIME #1 syringe 12/04/16 Rx Allergies Allergy/AdvReac Type Severity Reaction Status Date / Time No Known Allergies Allergy Verified 12/02/16 18:00 Medical,Surgical,& Family Hx - Medical History Cardio: History of: Cerebrovascular Disease (questionable TIA), CHF, Hypertension, [place] No history of: CAD Psychological: History of: Anxiety Disorders, Depression Neurology: History of: Cerebrovascular Accident, TIA No history of: Seizures HEENT: History of: Eye Problem (Poor Vision) Endocrine: History of: Diabetes Mellitus (IDDM), Dyslipidemia Respiratory: History of: Obstructive Sleep Apnea Renal: History of: Dialysis (Tues, Thur, Sat), Renal Failure Musculoskeletal: History of: Amputation (Right Foot; Left BKA; Right second, third, and fourth digit amputation), Musculoskeletal Problems (Arthritis) Hematology: History of: Anemia Reproductive: No history of: Complication Other: History of: Skin Problems (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) No history of: Anesthesia Reactions - Surgical History Cardiac Surgeries: Patient Denies: Cardiac Catheterization Neurologic Surgeries: Patient denies: Neurologic Surgery HEENT Surgeries: Patient denies: Eye Surgery, Tonsilectomy & Adenoidectomy Abdominal Surgeries: Surgical HX of: Appendectomy Patient denies: Abdominal Surgery Reproductive Surgeries: Surgical HX of;: Section, Gynecologic Surgery Patient denies;: Genitourinary Surgery Orthopedic Surgeries: Surgical HX of;: Implanted Devices (Right Subclavian Dilaysis Catheter), Orthopedic Surgery (Left BKA, Right Foot Amputation) - Family History Family History: Reports;: Family Cancer, Family Diabetes, Family Heart Disease, Family Hypertension - Social History Smoking Status: Never smoker Frequency of Alcohol Use: None Type of Drug Use: None Exam - Constitutional Vitals: Period Temp Pulse Resp BP Sys/Jaimes Pulse Ox Last 24 Hr 97.3 F-97.3 F 82-82 18-18 129-129/91-91 100 General appearance: cachectic, disheveled - Head Head exam: Present: normal inspection, normocephalic, atraumatic - Eye Eye exam: Present: EOMI. Absent: conjunctival injection, nystagmus Pupils: Present: OXANA - ENT ENT exam: Present: normal exam, normal external ear exam, normal oropharynx - Neck Neck exam: Present: normal inspection. Absent: lymphadenopathy, meningismus, tenderness, thyromegaly - Respiratory Respiratory exam: Present: decreased breath sounds. Absent: rales, rhonchi, stridor, wheezes - Cardiovascular Cardiovascular exam: Present: regular rate and rhythm. Absent: carotid bruit, diastolic murmur, gallop, JVD, rubs, tachycardia - GI/Abdominal GI/Abdominal exam: Present: soft. Absent: tenderness, rebound - Extremities Exam Extremities exam: Present: other (right foot and left BKA; multiple digits amputations noted to left hand; ischemic digit to left hand) - Back Exam Back exam: Present: normal inspection - Neurological Exam Neurological exam: Present: alert, oriented X3 - Psychiatric Psychiatric exam: Present: flat affect - Skin Skin exam: Present: normal color, warm, dry
[2016-12-13 14:39] LABS: Basophils # 0.1 10*3/uL (0.0-0.2); Basophils % 0.8 % (0.0-0.8); Eosinophils # 0.1 10*3/uL (0.0-0.87); Eosinophils % 1.4 % (0.00-10.9); Hematocrit 39.5 VOL% (35.7-47.0); Hemoglobin 12.9 GM/DL (12.0-16.0); Immature Granulocytes % 0.4 %; Immature Granulocytes Absolute 0.04 #; Mean Corpuscular HGB Conc 32.7 GM/DL (32-36); Mean Corpuscular Hemoglobin 28 PG (27-34); Mean Corpuscular Volume 85.1 FL (87-102); Mean Platelet Volume 10.9 FL (9.6-12.0); Monocytes # 0.6 10*3/uL (0.11-0.8); Monocytes % 5.9 % (1.7-12.7); Neutrophils # 8.4 10*3/uL (1.4-7.4); Neutrophils % 81.5 % (38.7-73.9); Platelet Count 316 T/CUMM (130-400); Red Blood Count 4.64 MC/CUMM (3.8-5.5); Red Cell Distribution Width 15.9 % (9.3-17.3); White Blood Count 10.3 T/CUMM (4-12)
[2016-12-13 14:54] LABS: INR 1.1; PT Patient Result 11.5 SECS; Partial Thromboplastin Time 30.7 SECS (0-40)
[2016-12-13 15:07] LABS: Albumin 2.4 G/DL (3.4-5.0); Calcium 8.6 MG/DL (8.5-10.1); Osmolality,Calculated 287.5 MOS/KG (273-304); Potassium 3.4 MMOL/L (3.5-5.1); Total Protein 7.4 G/DL (6.4-8.3)
[2016-12-13] MEDS ORDERED: GLUCAGON 1 MG VIAL IM PRN (16:15)
[2016-12-13] MEDS ORDERED: ONDANSETRON 4 MG/2 ML VIAL IV PRN (16:15)
[2016-12-13] MEDS: INSULIN LISPRO 100 UNIT/ML SUBCUT SCH ×2 (17:53→21:30)
[2016-12-13] MEDS: ENOXAPARIN 30 MG/0.3 ML SYRINGE SUBCUT SCH (17:54)
[2016-12-13] MEDS: CALCIUM ACETATE 667 MG CAPSULE PO SCH (17:54)
[2016-12-13] MEDS: PANTOPRAZOLE 40 MG TABLET PO SCH (17:54)
[2016-12-13] MEDS: cefTRIAXone 1,000 MG in SODIUM CHLORIDE 0.9% 100 ML IV SCH (17:57)
[2016-12-13] MEDS: INSULIN GLARGINE 100 UNIT/ML SUBCUT SCH (21:34)
[2016-12-14] MEDS: SODIUM CHLORIDE 0.9% 250 ML IV SCH ×4 (04:10→23:52)
[2016-12-14 06:19] LABS: Basophils # 0.1 10*3/uL (0.0-0.2); Basophils % 0.7 % (0.0-0.8); Eosinophils # 0.2 10*3/uL (0.0-0.87); Hematocrit 37.7 VOL% (35.7-47.0); Hemoglobin 12.3 GM/DL (12.0-16.0); Immature Granulocytes % 0.2 %; Immature Granulocytes Absolute 0.02 #; Lymphocytes # 1.5 10*3/uL (1.4-4.0); Lymphocytes % 13.5 % (21.3-54.2); Mean Corpuscular HGB Conc 32.6 GM/DL (32-36); Mean Corpuscular Hemoglobin 28 PG (27-34); Mean Corpuscular Volume 85.5 FL (87-102); Mean Platelet Volume 11.1 FL (9.6-12.0); Monocytes # 0.9 10*3/uL (0.11-0.8); Monocytes % 7.7 % (1.7-12.7); Neutrophils # 8.6 10*3/uL (1.4-7.4); Neutrophils % 75.9 % (38.7-73.9); Platelet Count 359 T/CUMM (130-400); Red Blood Count 4.41 MC/CUMM (3.8-5.5); Red Cell Distribution Width 15.9 % (9.3-17.3); White Blood Count 11.3 T/CUMM (4-12)
[2016-12-14 06:31] LABS: Hypochromasia 1+; Ovalocytes Slight; Platelet Estimate Adequate
[2016-12-14 06:54] LABS: Calcium 9.3 MG/DL (8.5-10.1); Magnesium 2.3 MG/DL (1.8-2.4); Osmolality,Calculated 277.7 MOS/KG (273-304); Potassium 3.6 MMOL/L (3.5-5.1)
[2016-12-14] MEDS: DEXTROSE 50% 25 GM/50 ML VIAL IV PRN (07:05)
[2016-12-14] MEDS: INSULIN LISPRO 100 UNIT/ML SUBCUT SCH ×4 (08:23→21:50)
[2016-12-14] MEDS: CALCIUM ACETATE 667 MG CAPSULE PO SCH ×3 (08:49→18:35)
[2016-12-14] MEDS: PANTOPRAZOLE 40 MG TABLET PO SCH (08:49)
--- NOTE | 2016-12-14 09:36 | Nephrology Consult Note ---
History of Present Illness Chief complaint: ESRD History of present illness: Ms. Leonard is a 46 year old female with end-stage renal disease who dialyzes at the [facility] dialysis unit. She has severe peripheral vascular disease and is status post amputation of fingers and toes. She has a right groin dialysis catheter which she uses for dialysis access. She now presents with necrotic left fourth finger and desires amputation. She had previously declined amputation. Her chest is clear and heart without rub or gallop she is cachectic. She interacts very little she does make eye contact. Impression necrotic left fourth finger in need of amputation #2 end-stage renal disease #3 bedbound state #4 PEG tube #5 chronic failure to thrive. Plan will dialyze today and she should be ready for surgery on Friday, December 16 Home Medications Medication Instructions Recorded Confirmed Type Insulin Glargine [Lantus] 15 units SUBCUT BEDTIME #1 syringe 12/04/16 12/13/16 Rx Calcium Acetate [Phoslo] 2,001 mg PO TID W/MEALS 12/13/16 12/13/16 History Allergies Allergy/AdvReac Type Severity Reaction Status Date / Time No Known Allergies Allergy Verified 12/02/16 18:00 Medical,Surgical,& Family Hx - Medical History Cardio: History of: Cerebrovascular Disease (questionable TIA), CHF, Hypertension, [place] No history of: CAD Psychological: History of: Anxiety Disorders, Depression Neurology: History of: Cerebrovascular Accident, TIA No history of: Seizures HEENT: History of: Eye Problem (Poor Vision) Endocrine: History of: Diabetes Mellitus (IDDM), Dyslipidemia Respiratory: History of: Obstructive Sleep Apnea Renal: History of: Dialysis (Tues, Thur, Sat), Renal Failure Musculoskeletal: History of: Amputation (Right Foot; Left BKA; Right second, third, and fourth digit amputation), Musculoskeletal Problems (Arthritis) Hematology: History of: Anemia Reproductive: No history of: Complication Other: History of: Skin Problems (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) No history of: Anesthesia Reactions - Surgical History Cardiac Surgeries: Patient Denies: Cardiac Catheterization Neurologic Surgeries: Patient denies: Neurologic Surgery HEENT Surgeries: Patient denies: Eye Surgery, Tonsilectomy & Adenoidectomy Abdominal Surgeries: Surgical HX of: Appendectomy Patient denies: Abdominal Surgery Reproductive Surgeries: Surgical HX of;: Section, Gynecologic Surgery Patient denies;: Genitourinary Surgery Orthopedic Surgeries: Surgical HX of;: Implanted Devices (Right Subclavian Dilaysis Catheter), Orthopedic Surgery (Left BKA, Right Foot Amputation) - Family History Family History: Reports;: Family Cancer, Family Diabetes, Family Heart Disease, Family Hypertension - Social History Smoking Status: Never smoker Frequency of Alcohol Use: None Type of Drug Use: None Review of Systems 12 point system: reviewed and no additional remarkable complaints except as stated Exam - Vital Signs Vital signs: Period Temp Pulse Resp BP Sys/Jaimes Pulse Ox Last 24 Hr 96.3 F-97.8 F 77-96 16-18 104-123/35-75 94-100 - General Appearance General appearance: cachectic EENT: ATNC Neck: no JVD, no thyromegaly, no carotid bruit, supple Respiratory: no kyphosis, no scoliosis Cardiology: no murmurs, no rub, no gallops, no edema, regular rate, regular rhythm, normal S1, normal S2 Gastrointestinal: normoactive bowel sounds Integumentary: no rash, warm and dry Neurologic: no focal deficit, no asterixis, alert and oriented x3, reflexes 2+ and symmetric, gait normal, strength 5/5 Psychiatric: depressed (Finger/toe amps. R groin dialysis cath. PEG tube. Necrotic left 4th finger) Results - Labs CBC & BMP: 12/14/16 04:47 12/14/16 04:47 Assessment and Plan (1) End stage renal disease Problem details: No acute indication for HD at this time. Status: Chronic Assessment and plan: Dialysis today Current Visit: No (2) Peripheral vascular disease due to secondary diabetes mellitus Problem details: S/p transmetatarsal amputation of the right forefoot. Also with new c/o of pain in the left lateral foot and lower leg. Status: Chronic Assessment and plan: Amp left 4th finger Current Visit: No Specialty Discharge - Follow Up or Referrals - Speciality Discharge Instructions Nephrology Instructions: Hemodialysis today
--- NOTE | 2016-12-14 11:40 | General Surgery Consult Note ---
Assessment and Plan - Time spent with patient Time spent with patient: Greater than 30 minutes (1) Sacral decubitus ulcer, stage II Status: Acute Assessment and plan: Local care, offloading and protection. Current Visit: Yes (2) Peripheral vascular disease due to secondary diabetes mellitus Problem details: S/p transmetatarsal amputation of the right forefoot. Also with new c/o of pain in the left lateral foot and lower leg. Status: Chronic Assessment and plan: Eschars of the right transmet stump are stable without signs of progression or infection; No surgery or debridements planned at this time. We'll watch closely for signs of infection. Local care, offloading and protection. Current Visit: No (3) Ischemic necrosis of finger Status: Acute Assessment and plan: We will plan for amputation of the left 4th finger on Friday; it will likely also involve amputation of the 5th, with extensive debridement and possible loss of the 3rd left fingers as well. The patient was made aware of this and she seemed to acknowledge it, though no verbal response was made. Her nurse was asked to notify the family of the planned surgery and we will want to discuss the surgery with them as well. We will plan to control her medical issues and get Dr Patel to continue her dialysis. Current Visit: No (4) ESRD (end stage renal disease) on dialysis Problem details: No acute indication for HD today. Status: Chronic Assessment and plan: Continue HD. Current Visit: No History of Present Illness Chief complaint: Ischemic left 4th finger History of present illness: Ms. Leonard is a 46 year old female Home Medications Medication Instructions Recorded Confirmed Type Insulin Glargine [Lantus] 15 units SUBCUT BEDTIME #1 syringe 12/04/16 12/13/16 Rx Calcium Acetate [Phoslo] 2,001 mg PO TID W/MEALS 12/13/16 12/13/16 History Allergies Allergy/AdvReac Type Severity Reaction Status Date / Time No Known Allergies Allergy Verified 12/02/16 18:00 Medical,Surgical,& Family Hx - Medical History Cardio: History of: Cerebrovascular Disease (questionable TIA), CHF, Hypertension, [place] No history of: CAD Psychological: History of: Anxiety Disorders, Depression Neurology: History of: Cerebrovascular Accident, TIA No history of: Seizures HEENT: History of: Eye Problem (Poor Vision) Endocrine: History of: Diabetes Mellitus (IDDM), Dyslipidemia Respiratory: History of: Obstructive Sleep Apnea Renal: History of: Dialysis (, , Fri), Renal Failure Musculoskeletal: History of: Amputation (Right Foot; Left BKA; Right second, third, and fourth digit amputation), Musculoskeletal Problems (Arthritis) Hematology: History of: Anemia Reproductive: No history of: Complication Other: History of: Skin Problems (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) No history of: Anesthesia Reactions - Surgical History Cardiac Surgeries: Patient Denies: Cardiac Catheterization Neurologic Surgeries: Patient denies: Neurologic Surgery HEENT Surgeries: Patient denies: Eye Surgery, Tonsilectomy & Adenoidectomy Abdominal Surgeries: Surgical HX of: Appendectomy Patient denies: Abdominal Surgery Reproductive Surgeries: Surgical HX of;: Section, Gynecologic Surgery Patient denies;: Genitourinary Surgery Orthopedic Surgeries: Surgical HX of;: Implanted Devices (Right Subclavian Dilaysis Catheter), Orthopedic Surgery (Left BKA, Right Foot Amputation) - Family History Family History: Reports;: Family Cancer, Family Diabetes, Family Heart Disease, Family Hypertension - Social History Smoking Status: Never smoker Frequency of Alcohol Use: None Type of Drug Use: None ROS unobtainable: due to mental status (Pt is somewhat depressed and she does not choose to answer questions to day. She does say her family is coming at some point this weekend, and she offers that she has dialysis on Tuesdays, , and Saturdays. Other than that, she refuses to answer questions.) Exam - Constitutional Vitals: Period Temp Pulse Resp BP Sys/Jaimes Pulse Ox Last 24 Hr 96.3 F-97.8 F 77-96 16-18 104-123/35-75 94-100 General appearance: no acute distress, other (Cachexic, disheveled, in no apparent distress. She lies quietly on her left side and does not answer questions or make eye contact. ) - ENT Mouth exam: Present: dry mucosa - Respiratory Respiratory exam: Present: clear to auscultation bilaterally - Cardiovascular Cardiovascular exam: Present: RRR - GI/Abdominal GI/Abdominal exam: Present: hypoactive bowel sounds - Extremities Exam Extremities exam: Present: other (Left upper extremity without edema. Left 4th toe with dry gangrene that extends onto the dorsum of the hand. Left 3rd and 5th fingers with hyperemia and some early ischemic skin change but no gross tissue loss seen at this point. 1+ulnar and radial pulses. Right hand with healed amputation of 2-5 metacarpals. Right elbow with small, dry abrasion. Right transmetatarsal amputation stump with medial and lateral dry eschars, both 1.5cm each; no drainage or redness. Some smaller punctate scabbing present. The remainder of the stump is dry and warm. Left BK stump is warm and incision is healed. ) - Back Exam Back exam: Present: other (Small 2-3cm Stage 2 decubitus of the sacrum that is clean and dry. ) Results - Labs CBC & BMP: 12/14/16 04:47 12/14/16 04:47
--- NOTE | 2016-12-14 11:41 | Dialysis Note ---
Dialysis Note - Dialysis Note Ms. Leonard is seen during her hemodialysis. She is tolerating dialysis well. She does not engage in conversation but is in no distress.
--- NOTE | 2016-12-14 12:22 | EKG Report ---
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
--- NOTE | 2016-12-14 12:23 | Hospitalist Progress Note ---
Assessment and Plan (1) Peripheral vascular disease due to secondary diabetes mellitus Problem details: S/p transmetatarsal amputation of the right forefoot. Also with new c/o of pain in the left lateral foot and lower leg. Status: Chronic Assessment and plan: Patient has succumbed to this disease and multiple sites with amputations. Most likely this is driven by the baseline diabetes is poorly controlled and arteriosclerosis. We will try to control her diabetes better while here if not already ordered I will order a lipid panel Current Visit: No (2) Poorly controlled type 1 diabetes mellitus Status: Acute Current Visit: No (3) End stage renal disease Problem details: No acute indication for HD at this time. Status: Chronic Assessment and plan: Patient is consulted to nephrology and is actually in the process of getting her hemodialysis at this point. Current Visit: No (4) Ischemic necrosis of finger Status: Chronic Assessment and plan: Patient is pending debulking surgically of this fourth left digit. Reportedly will plan to have been done area on which she did not agree with but now she wants to have it done. I will see the patient post surgery. This may be a tomorrow morning. Current Visit: No Hospitalist: Subjective Interval history: First encounter with this patient an assignment .Admitted the afternoon of yesterday to the hospital with a gangrenous fourth finger on the left hand needing a debulking. Patient was sent to the emergency room at [facility] from the [facility]. Patient is seen in the dialysis unit prior to going to have surgery. His total incommunicado vital signs are stable he does about have an EKG. Exam - Constitutional Vitals: Period Temp Pulse Resp BP Sys/Jaimes Pulse Ox Last 24 Hr 96.3 F-97.8 F 77-96 16-18 104-123/35-75 94-100 General appearance: under weight - Head Head exam: Present: normal inspection, normocephalic - Eye Eye exam: Present: other (Cannot be assessed patient cannot open eyes and she is in the position does not want to be bothered) - ENT ENT exam: Present: normal exam - Neck Neck exam: Present: normal inspection - Respiratory Respiratory exam: Present: clear to auscultation bilaterally - Cardiovascular Cardiovascular exam: Present: regular rate and rhythm, other (Occasional ectopy) - GI/Abdominal GI/Abdominal exam: Present: normal bowel sounds, soft - Extremities Exam Extremities exam: Present: other (Patient is in position cannot be stretch cannot examine musculoskeletal function) - Skin Skin exam: Present: other (Multiple amputation sites get a gangrenous fourth digit on the left hand lost a lot of fingers on the right) Results - Labs CBC & BMP: 12/14/16 04:47 12/14/16 04:47 Lab Results: I have reviewed the past 24 hour labs (I notice hypoglycemia in this chemistry patient is supplemented and will make sure that the supplemental D50 W and glucagon on board) Quality Measures - VTE Contraindication to Pharmacological VTE Prophylaxis: High Risk of Bleeding
[2016-12-14] MEDS ORDERED: HEPARIN 10,000 UNIT/10 ML VIAL IV SCH (12:30)
[2016-12-14] MEDS: cefTRIAXone 1,000 MG in SODIUM CHLORIDE 0.9% 100 ML IV SCH (17:42)
[2016-12-14] MEDS: ENOXAPARIN 30 MG/0.3 ML SYRINGE SUBCUT SCH (17:42)
[2016-12-14] MEDS: INSULIN GLARGINE 100 UNIT/ML SUBCUT SCH (21:50)
[2016-12-15 05:29] LABS: Basophils # 0.1 10*3/uL (0.0-0.2); Basophils % 0.6 % (0.0-0.8); Eosinophils # 0.3 10*3/uL (0.0-0.87); Eosinophils % 1.6 % (0.00-10.9); Hematocrit 36.1 VOL% (35.7-47.0); Hemoglobin 11.4 GM/DL (12.0-16.0); Immature Granulocytes % 0.5 %; Immature Granulocytes Absolute 0.08 #; Lymphocytes # 1.2 10*3/uL (1.4-4.0); Lymphocytes % 6.7 % (21.3-54.2); Mean Corpuscular HGB Conc 31.6 GM/DL (32-36); Mean Corpuscular Hemoglobin 28 PG (27-34); Mean Platelet Volume 10.8 FL (9.6-12.0); Neutrophils # 14.6 10*3/uL (1.4-7.4); Neutrophils % 84.6 % (38.7-73.9); Platelet Count 277 T/CUMM (130-400); Red Blood Count 4.15 MC/CUMM (3.8-5.5); Red Cell Distribution Width 15.9 % (9.3-17.3); White Blood Count 17.3 T/CUMM (4-12)
[2016-12-15 05:40] LABS: INR 1.2; PT Patient Result 12.5 SECS; Partial Thromboplastin Time 36.8 SECS (0-40)
[2016-12-15 05:53] LABS: Albumin 2.1 G/DL (3.4-5.0); Bilirubin,Total 1.1 MG/DL (0.2-1.0); Calcium 8.8 MG/DL (8.5-10.1); Osmolality,Calculated 278.5 MOS/KG (273-304); Total Protein 7.1 G/DL (6.4-8.3)
[2016-12-15 05:54] LABS: Calcium 8.9 MG/DL (8.5-10.1); Magnesium 2.2 MG/DL (1.8-2.4); Osmolality,Calculated 276.7 MOS/KG (273-304); Risk Ratio 2.4; VLDL CHOLESTEROL 23.2 MG/DL
[2016-12-15] MEDS: SODIUM CHLORIDE 0.9% 250 ML IV SCH (06:27)
--- NOTE | 2016-12-15 09:17 | General Surgery Progress Note ---
Assessment and Plan - Time spent with patient Time spent with patient: Less than 30 minutes (1) Peripheral vascular disease due to secondary diabetes mellitus Problem details: S/p transmetatarsal amputation of the right forefoot. Also with new c/o of pain in the left lateral foot and lower leg. Status: Chronic Assessment and plan: 12/15/2016. Patient's afebrile crying and still having some discomfort especially in her hand related to her peripheral vascular disease. Labs look good and we are planning to take her to surgery for amputation of the least to not 3 fingers at this time. Not sure how well things will heal because of her disease but at this point will try to get things cleaned up and see how she basically does. Nutritionally is poor and will have to see about tube feedings next week once she is postop. Current Visit: No Subjective Patient reports: Present: still having pain, afebrile Exam - Constitutional Vitals: Period Temp Pulse Resp BP Sys/Jaimes Pulse Ox Last 24 Hr 97.3 F-98.5 F 79-107 16-21 83-124/57-79 94-97 General appearance: mild distress - Head Head exam: Present: normal inspection - ENT ENT exam: Present: normal exam - Neck Neck exam: Present: normal inspection - Respiratory Respiratory exam: Present: rales - Cardiovascular Cardiovascular exam: Present: RRR - GI/Abdominal GI/Abdominal exam: Present: hypoactive bowel sounds, soft - Extremities Exam Extremities exam: Present: other (No evidence of infection of the left hand at this time still ischemic finger present.) - Neurological Exam Neurological exam: Present: alert, oriented X3, CN II-XII intact - Skin Skin exam: Present: normal color, warm, dry Results - Labs CBC & BMP: 12/15/16 04:51 12/15/16 04:51 Lab Results: I have reviewed the past 24 hour labs Quality Measures - VTE Contraindication to Pharmacological VTE Prophylaxis: High Risk of Bleeding
[2016-12-15] MEDS: CALCIUM ACETATE 667 MG CAPSULE PO SCH ×3 (09:43→18:06)
[2016-12-15] MEDS: INSULIN LISPRO 100 UNIT/ML SUBCUT SCH ×4 (09:43→22:14)
[2016-12-15] MEDS: PANTOPRAZOLE 40 MG TABLET PO SCH (09:43)
--- NOTE | 2016-12-15 10:50 | Nephrology Progress Note ---
Nephrology - PN: Subj Interval history: Ms. Leonard is seen in follow-up of her end-stage renal disease. She is stable today and is arousable. She interacts very little. She remains cachectic and her chest is clear. Blood sugars are a bit low when she eats poorly. We will use D5 in her IV instead of saline but were going to minimize volume to avoid fluid overload. Surgery is planned to amputate fingers tomorrow. Exam (PN)-Nephrology - Vital Signs Vital signs: Period Temp Pulse Resp BP Sys/Jaimes Pulse Ox Last 24 Hr 97.3 F-98.5 F 79-107 16-21 83-124/57-79 94-97 - Lab 12/15/16 04:51 12/15/16 04:51 Most recent lab results Calcium 8.9 MG/DL (8.5-10.1) 12/15/16 04:51 Magnesium 2.2 MG/DL (1.8-2.4) 12/15/16 04:51 Assessment and Plan (1) End stage renal disease Problem details: No acute indication for HD at this time. Status: Chronic Assessment and plan: Dialysis today Current Visit: No (2) Peripheral vascular disease due to secondary diabetes mellitus Problem details: S/p transmetatarsal amputation of the right forefoot. Also with new c/o of pain in the left lateral foot and lower leg. Status: Chronic Assessment and plan: Amp left 4th finger Current Visit: No
[2016-12-15] MEDS: DEXTROSE 5% 1,000 ML IV SCH (11:10)
--- NOTE | 2016-12-15 13:13 | Hospitalist Progress Note ---
Assessment and Plan (1) Peripheral vascular disease due to secondary diabetes mellitus Problem details: S/p transmetatarsal amputation of the right forefoot. Also with new c/o of pain in the left lateral foot and lower leg. Status: Chronic Assessment and plan: Patient has succumbed to this disease and multiple sites with amputations. Most likely this is driven by the baseline diabetes is poorly controlled and arteriosclerosis. We will try to control her diabetes better while here if not already ordered I will order a lipid panel Current Visit: No (2) Poorly controlled type 1 diabetes mellitus Status: Acute Assessment and plan: Patient has recurrent hypoglycemia due to poor oral intake. She is on basal insulin at that needs to be covered. I believe we can start some D5W this morning. Preferably is to start using the PEG tube feeding with Glucerna. Will put in a dietitians consult for tomorrow. Hopefully can start using the PEG tube after it say functionallity has been verified. Current Visit: No (3) End stage renal disease Problem details: No acute indication for HD at this time. Status: Chronic Assessment and plan: Patient is consulted to nephrology and is actually in the process of getting her hemodialysis at this point. Current Visit: No (4) Ischemic necrosis of finger Status: Chronic Assessment and plan: Patient is pending debulking surgically of this fourth left digit. Reportedly will plan to have been done area on which she did not agree with but now she wants to have it done. I will see the patient post surgery. This may be a tomorrow morning. Current Visit: No Hospitalist: Subjective Interval history: Patient has been seen and examined. She is incommunicado. Admitted to the hospital with a gangrenous fourth finger. I am informed this is been planned for debulking tomorrow. Concerning his recurrent events of hypoglycemia because she is not eating well. This patient is a diabetic on basal insulin coverage. She does have a PEG tube that is not being used at this point. I am informed that this has not been used for a long time and is plan to check it out tomorrow as the patient goes to surgery. Based of situational before he can use the PEG tube for both nutrition and fluid supplementation. This patient also has end-stage renal disease and on dialysis he did get her dialysis yesterday. Apart from a creatinine of 2.8 BUN of 21 which is quite good for her with the office is okay except for low end of the sugars. She has an elevated white count most likely is because of the infection in the finger. Exam - Constitutional Vitals: Period Temp Pulse Resp BP Sys/Jaimes Pulse Ox Last 24 Hr 96.9 F-98.5 F 79-107 16-21 83-133/57-91 94-97 General appearance: under weight - Head Head exam: Present: normocephalic, atraumatic - Eye Eye exam: Present: other (Cannot be assessed patient closed her eyes and not cooperative cooperating.) Pupils: Present: OXANA - ENT ENT exam: Present: other (Unable to assess) - Neck Neck exam: Present: normal inspection - Respiratory Respiratory exam: Present: clear to auscultation bilaterally - Cardiovascular Cardiovascular exam: Present: regular rate and rhythm - GI/Abdominal GI/Abdominal exam: Present: normal bowel sounds, soft, other (PEG in place) - Extremities Exam Extremities exam: Present: other (Patient is persistently in a position) - Neurological Exam Neurological exam: Present: alert, oriented X3, CN II-XII intact - Psychiatric Psychiatric exam: Present: other (Dementia) Results - Labs CBC & BMP: 12/15/16 04:51 12/15/16 04:51 Lab Results: I have reviewed the past 24 hour labs Quality Measures - VTE Contraindication to Pharmacological VTE Prophylaxis: High Risk of Bleeding
[2016-12-15] MEDS: ENOXAPARIN 30 MG/0.3 ML SYRINGE SUBCUT SCH (18:06)
[2016-12-15] MEDS: cefTRIAXone 1,000 MG in SODIUM CHLORIDE 0.9% 100 ML IV SCH (18:06)
[2016-12-15] MEDS: INSULIN GLARGINE 100 UNIT/ML SUBCUT SCH (22:14)
[2016-12-16] MEDS ORDERED: BUPIVACAINE 0.25% 50 ML VIAL ONE ×2 (06:27→07:30)
[2016-12-16] MEDS ORDERED: ceFAZolin 2,000 MG in PREMIX 1 EACH IV ONE (07:00)
[2016-12-16] MEDS: INSULIN LISPRO 100 UNIT/ML SUBCUT SCH ×4 (07:30→21:28)
[2016-12-16] MEDS: CALCIUM ACETATE 667 MG CAPSULE PO SCH ×3 (08:00→17:15)
[2016-12-16] MEDS ORDERED: ACETAMINOPHEN 325 MG TABLET PO PRN (08:09)
[2016-12-16] MEDS ORDERED: oxyCODONE/ACETAMINOPHEN 5-325 MG TABLET PO PRN (08:09)
[2016-12-16] MEDS ORDERED: HYDROmorphone 2 MG/1 ML VIAL IV PRN (08:09)
--- NOTE | 2016-12-16 08:09 | Operative Note ---
Date of procedure: 12/16/16 Pre-op diagnosis: Ischemic changes of the fourth and fifth fingers left hand Post-op diagnosis: same Procedure: Operative note: Preoperative diagnosis: Diabetic ischemic changes of the fourth and fifth fingers left hand Postoperative diagnosis: Same Procedure: Amputation of the fourth and fifth fingers left hand with partial closure. Surgeon Dr. Rice [employer] Iona Lance, TUBE SORTER ACNP Anesthesia was managed as a care with local digital blocks of the fingers. Brief history: 46-year-old female with severe diabetes and progressive ischemic changes of the distal parts of her extremities. She had loss good number of the fingers on the right hand now comes in with progressive ischemic changes of the fourth finger that is completely mummified at this time with tissue breakdown at the base. There is changes of the fifth finger that looks ischemic at this point. There is an edge of the third finger that has some early ischemic changes and will see if we can preserve it at this time. Clearly she will lose the fourth and fifth fingers. Procedure: With patient supine position prepped and draped in sterile fashion timeout and antibiotics completed approaches area of the left hand. Did a digital block about the area of the incisional area onto the fingers all the way around with local anesthetic. Once that was done and then try to stay as close to the base of the fingers as I could go through the skin subcutaneous tissue down to the level of the joints at this time. We did size the tendons and encountered some necrotic fatty tissue in this area. At that point I was able to disarticulate both fourth and fifth fingers with the knife. They went back and debrided a good bit of necrotic fatty tissue taken some for culture at this time. Carefully debrided the bone back and took additional bone from the fifth and fourth carpal bones to clean these edges up and since some of the bone for culture. Once I had debrided most of this back along with the tendon and it looked pretty good distal part of this were closed but the part that extended up onto the third finger would not at this point. Most of the finger looks viable at this time whether we can save this is questionable. I like to see if there is a way that we might can improve this and get some healing incision and may be save this third finger for now. At that point we closed part of the lateral wound with interrupted vertical mattress of 4-0 nylon. Once those were completed and cleaned afterward washed irrigated we then placed some ointment as well as Adaptic on this and wrapped with a bulky dressing took patient recovery room. Still question is whether not we will lose more skin on the dorsum of the hand which will dictate out things will progress at this point time. Did have some bleeding so is difficult to know how well this will heal at this time. Estimated blood loss 10 cc Sponge count correct 2 Drains none Complications none Condition stable satisfactory Anesthesia: MAC, local (0.25% Marcaine plain mixed [id number] 1% Xylocaine plain) Surgeon / Physician: Freddy Rice [employer]: Iona Lance Estimated blood loss: other (10 cc) Specimens: other (fingers and tissue for cultures) Condition: stable Disposition: floor Results - Labs CBC & BMP: 12/15/16 04:51 12/15/16 04:51 Discharge Plan - Discharge Medications No Action Insulin Glargine [Lantus] 15 units SUBCUT BEDTIME #1 syringe Calcium Acetate [Phoslo] 2,001 mg PO TID W/MEALS - Follow Up or Referral - Forms/Instructions
[2016-12-16] MEDS ORDERED: fentaNYL 100 MCG/2 ML VIAL ONE (08:23)
[2016-12-16] MEDS ORDERED: PROPOFOL 200 MG/20 ML VIAL IV ONE (08:23)
[2016-12-16] MEDS ORDERED: MIDAZOLAM 2 MG/2 ML VIAL ONE (08:23)
[2016-12-16] MEDS ORDERED: KETAMINE 500 MG/10 ML VIAL ONE (08:24)
[2016-12-16] MEDS ORDERED: ETOMIDATE 20 MG/10 ML VIAL IV ONE (08:24)
[2016-12-16] MEDS: SODIUM CHLORIDE 0.9% 1,000 ML IV SCH (09:30)
--- NOTE | 2016-12-16 09:54 | Nephrology Progress Note ---
Nephrology - PN: Subj Interval history: Ms. Leonard is seen in follow-up of her end-stage renal disease. She went to the operating room this morning had amputation of the fourth and fifth fingers of the left hand. She is currently sedate from her anesthesia and has a regular heart rhythm breathing quietly. Her next dialysis is scheduled for tomorrow. Exam (PN)-Nephrology - Vital Signs Vital signs: Period Temp Pulse Resp BP Sys/Jaimes Pulse Ox Last 24 Hr 96.9 F-98.7 F 85-105 12-20 110-146/80-91 95-100 - Lab 12/15/16 04:51 12/15/16 04:51 Most recent lab results Calcium 8.9 MG/DL (8.5-10.1) 12/15/16 04:51 Magnesium 2.2 MG/DL (1.8-2.4) 12/15/16 04:51 Assessment and Plan (1) End stage renal disease Problem details: No acute indication for HD at this time. Status: Chronic Assessment and plan: Dialysis today Current Visit: No (2) Peripheral vascular disease due to secondary diabetes mellitus Problem details: S/p transmetatarsal amputation of the right forefoot. Also with new c/o of pain in the left lateral foot and lower leg. Status: Chronic Assessment and plan: Amp left 4th finger Current Visit: No
--- NOTE | 2016-12-16 10:56 | Anesthesia Post-Op ---
Anesthesia Post OP - Post Ansesthetic Evaluation Patient seen in post op: Yes Resp: within normal limits CV: within normal limits Mental: within normal limits Temp: within normal limits [id number]: within normal limits Nausea and Vomiting: within normal limits Pain: within normal limits
[2016-12-16] MEDS: DEXTROSE 5% 1,000 ML IV SCH (11:00)
[2016-12-16] MEDS: PANTOPRAZOLE 40 MG TABLET PO SCH (12:25)
--- NOTE | 2016-12-16 13:29 | Hospitalist Progress Note ---
Assessment and Plan (1) Peripheral vascular disease due to secondary diabetes mellitus Problem details: S/p transmetatarsal amputation of the right forefoot. Also with new c/o of pain in the left lateral foot and lower leg. Status: Chronic Assessment and plan: Continue antiplatelets. Check lipid panel Current Visit: No (2) Poorly controlled type 1 diabetes mellitus Status: Acute Assessment and plan: Patient has recurrent hypoglycemia due to poor oral intake. She is on basal insulin at that needs to be covered. I believe we can start some D5W this morning. Preferably is to start using the PEG tube feeding with Glucerna. Will put in a dietitians consult for tomorrow. Hopefully can start using the PEG tube after it say functionallity has been verified. Current Visit: No (3) End stage renal disease Problem details: No acute indication for HD at this time. Status: Chronic Assessment and plan: Patient is consulted to nephrology and is actually in the process of getting her hemodialysis at this point. 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 Bone cultures from the surgical margins have been sent. Remain on antibiotics preferably cefazolin until cultures come out. Well and cefazolin stopped ceftriaxone. Current Visit: No Hospitalist: Subjective Interval history: Patient is seen and examined after surgery. She is still asleep most of this could be secondary to anesthesia. She had to undergo amputation of the fourth and fifth finger on the left hand. Developed ischemia to lose fingers with mummification of the fourth finger. Patient went through the surgery well. She is a diabetic poorly controlled history of multiple sites amputation due to ischemic damage to the tissues. She has diffuse peripheral arterial disease. Patient is also been receiving antibiotics patient should be cut short due to the fact that she has had debulking of the affected sites assuming surgical margins are clean. Culture of bones from the size have been sent the lab. Exam - Constitutional Vitals: Period Temp Pulse Resp BP Sys/Jaimes Pulse Ox Last 24 Hr 97 F-98.7 F 85-105 12-20 105-164/72-94 93-100 General appearance: under weight - Head Head exam: Present: normocephalic, atraumatic - Eye Eye exam: Present: other (Unable to assess) Pupils: Present: unequal - ENT ENT exam: Present: normal oropharynx - Neck Neck exam: Present: normal inspection - Respiratory Respiratory exam: Present: clear to auscultation bilaterally - Cardiovascular Cardiovascular exam: Present: regular rate and rhythm - GI/Abdominal GI/Abdominal exam: Present: normal bowel sounds, soft - Extremities Exam Extremities exam: Present: other (Cannot assess at this point) - Neurological Exam Neurological exam: Present: CN II-XII intact - Psychiatric Psychiatric exam: Present: other (Sleepy) - Skin Skin exam: Present: dry Results - Labs CBC & BMP: 12/15/16 04:51 12/15/16 04:51 Lab Results: I have reviewed the past 24 hour labs Quality Measures - VTE Contraindication to Pharmacological VTE Prophylaxis: High Risk of Bleeding
[2016-12-16] MEDS: ceFAZolin 2,000 MG in PREMIX 1 EACH IV SCH ×2 (15:15→21:41)
[2016-12-16] MEDS: DESITIN 4OZ/NYSTATIN 15 GRAM MIXTURE PASTE TOP SCH ×2 (15:20→20:38)
[2016-12-16] MEDS: ENOXAPARIN 30 MG/0.3 ML SYRINGE SUBCUT SCH (16:50)
[2016-12-16] MEDS: INSULIN GLARGINE 100 UNIT/ML SUBCUT SCH (21:28)
[2016-12-17 07:01] LABS: Basophils # 0.1 10*3/uL (0.0-0.2); Basophils % 0.6 % (0.0-0.8); Eosinophils # 0.3 10*3/uL (0.0-0.87); Eosinophils % 1.9 % (0.00-10.9); Hematocrit 32.3 VOL% (35.7-47.0); Hemoglobin 10.1 GM/DL (12.0-16.0); Immature Granulocytes % 0.5 %; Immature Granulocytes Absolute 0.07 #; Lymphocytes # 0.8 10*3/uL (1.4-4.0); Lymphocytes % 5.7 % (21.3-54.2); Mean Corpuscular HGB Conc 31.3 GM/DL (32-36); Mean Corpuscular Hemoglobin 27 PG (27-34); Mean Corpuscular Volume 87.3 FL (87-102); Mean Platelet Volume 10.8 FL (9.6-12.0); Monocytes # 1.1 10*3/uL (0.11-0.8); Monocytes % 8.2 % (1.7-12.7); Neutrophils # 11.2 10*3/uL (1.4-7.4); Neutrophils % 83.1 % (38.7-73.9); Platelet Count 305 T/CUMM (130-400); Red Cell Distribution Width 15.5 % (9.3-17.3); White Blood Count 13.5 T/CUMM (4-12)
[2016-12-17] MEDS: INSULIN LISPRO 100 UNIT/ML SUBCUT SCH ×4 (07:33→20:50)
[2016-12-17 07:38] LABS: Calcium 7.4 MG/DL (8.5-10.1); Osmolality,Calculated 290.4 MOS/KG (273-304); Potassium 4.4 MMOL/L (3.5-5.1)
[2016-12-17] MEDS: SODIUM CHLORIDE 0.9% 1,000 ML IV SCH (09:24)
[2016-12-17] MEDS: CALCIUM ACETATE 667 MG CAPSULE PO SCH ×3 (09:24→16:47)
[2016-12-17] MEDS: DESITIN 4OZ/NYSTATIN 15 GRAM MIXTURE PASTE TOP SCH ×2 (09:25→20:55)
[2016-12-17] MEDS: PANTOPRAZOLE 40 MG TABLET PO SCH (09:25)
--- NOTE | 2016-12-17 10:04 | Dialysis Note ---
Dialysis Note - Dialysis Note Ms. Leonard is seen during her hemodialysis. She is tolerating dialysis well. She does not interact much but she makes good eye contact does not seem to be having much pain. The dressing on her left hand is dry. Her chest is clear and her blood pressure stable. She should be able to go home and manage her wound at home before long. If antibiotics are necessary these can be given as an outpatient dialysis
--- NOTE | 2016-12-17 10:45 | Pathology Report from [facility] ---
ACCESSION # : [id number] PATIENT NAME : Eulogio Mason ORDERING DR : CECILLE KENNEY MD CLINICAL HX: Gangrene LT 4th & 5th fingers POST-OP DX: Same SPECIMEN INFO: 4th & 5th LT fingers GROSS DESCRIPTION: Received in formalin labeled "EULOGIO MASON" is a 4th and 5th finger measuring together 6.3 x 3.4 x 2 cm. The 4th finger is firm dark black with marked gangrenous changes. The 5th finger has skin sloughing and ulceration. Ship Wirer sections are submitted in one cassette. DIAGNOSIS FOR EULOGIO MASON: LEFT 4TH AND 5TH FINGERS: Wet gangrene with dermal abscess formation. SERVICE DATE: 12/16/2016 REPORT DATE: 12/17/2016 PATHOLOGIST: Immanuel Chavez III, M.D. MTDD
[2016-12-17] MEDS: DEXTROSE 5% 1,000 ML IV SCH (11:07)
--- NOTE | 2016-12-17 14:09 | Hospitalist Progress Note ---
Hospitalist: Subjective Interval history: Nurses report pt moans and groans most of the day with poor oral intake. Pt denies any current pain. No fever. No cough or SOB. Exam - Constitutional Vitals: Period Temp Pulse Resp BP Sys/Jaimes Pulse Ox Last 24 Hr 96.2 F-98.4 F 85-99 18-18 102-132/59-85 94-98 Exam: cachetic, frail female lying in bed with intermittent moaning RRR no M CTAB nonlabored, diminished at the bases Soft, NT, ND, +BS Warm left hand wrapped in bandage and RICHARD bandage. MARION, atrophied Results - Labs CBC & BMP: 12/17/16 05:54 12/17/16 05:54 - Impressions (1) Peripheral vascular disease due to secondary diabetes mellitus Problem details: S/p transmetatarsal amputation of the right forefoot. Also with new c/o of pain in the left lateral foot and lower leg. Status: Chronic Assessment and plan: Continue antiplatelets. Check lipid panel Current Visit: No (2) Poorly controlled type 1 diabetes mellitus Status: Acute Assessment and plan: Patient has recurrent hypoglycemia due to poor oral intake. She is on basal insulin at that needs to be covered. I believe we can start some D5W this morning. Preferably is to start using the PEG tube feeding with Glucerna. Will put in a dietitians consult for tomorrow. Hopefully can start using the PEG tube after it say functionallity has been verified. Current Visit: No (3) End stage renal disease Problem details: No acute indication for HD at this time. Status: Chronic Assessment and plan: Nephrology following. HD per renal. 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 Bone cultures from the surgical margins have been sent. off Cefazolin. Start Levaquin. Cultures growing GNR. F/U cultures. Adjust antibiotics as needed (5) Acute Expected blood loss anemia - Follow H and H and transfuse as needed. (6) Anorexia and possible depression - start Remeron. Start on Calorie count. DVT prophylaxis- Lovenox PT/OT Dispo: ? to home with HH vs. rehab at discharge. Barrier to dc is oral intake. Monitor. Quality Measures - VTE Contraindication to Pharmacological VTE Prophylaxis: High Risk of Bleeding
[2016-12-17] MEDS ORDERED: LEVOFLOXACIN INJ 250 MG in PREMIX 1 EACH IV SCH (14:30)
[2016-12-17] MEDS: ENOXAPARIN 30 MG/0.3 ML SYRINGE SUBCUT SCH (16:46)
[2016-12-17] MEDS: MIRTAZAPINE 15 MG TABLET PO SCH (20:55)
[2016-12-17] MEDS: INSULIN GLARGINE 100 UNIT/ML SUBCUT SCH (20:55)
[2016-12-18] MEDS: SODIUM CHLORIDE 0.9% 1,000 ML IV SCH (02:44)
[2016-12-18 06:33] LABS: Basophils # 0.1 10*3/uL (0.0-0.2); Basophils % 0.5 % (0.0-0.8); Eosinophils # 0.4 10*3/uL (0.0-0.87); Hematocrit 35.8 VOL% (35.7-47.0); Hemoglobin 11.6 GM/DL (12.0-16.0); Immature Granulocytes % 0.4 %; Immature Granulocytes Absolute 0.05 #; Lymphocytes # 0.7 10*3/uL (1.4-4.0); Lymphocytes % 5.4 % (21.3-54.2); Mean Corpuscular HGB Conc 32.4 GM/DL (32-36); Mean Corpuscular Hemoglobin 28 PG (27-34); Mean Corpuscular Volume 86.1 FL (87-102); Mean Platelet Volume 10.4 FL (9.6-12.0); Monocytes # 1.4 10*3/uL (0.11-0.8); Monocytes % 10.4 % (1.7-12.7); Neutrophils # 10.9 10*3/uL (1.4-7.4); Neutrophils % 80.3 % (38.7-73.9); Platelet Count 354 T/CUMM (130-400); Red Blood Count 4.16 MC/CUMM (3.8-5.5); Red Cell Distribution Width 15.8 % (9.3-17.3); White Blood Count 13.6 T/CUMM (4-12)
[2016-12-18 07:08] LABS: Albumin 1.9 G/DL (3.4-5.0); Calcium 8.7 MG/DL (8.5-10.1); Osmolality,Calculated 285.3 MOS/KG (273-304); Phosphorous 2.2 MG/DL (2.5-4.9)
[2016-12-18 07:20] LABS: Risk Ratio 4.16; VLDL CHOLESTEROL 25.4 MG/DL
[2016-12-18] MEDS: INSULIN LISPRO 100 UNIT/ML SUBCUT SCH ×4 (08:01→21:03)
--- NOTE | 2016-12-18 08:35 | Nephrology Progress Note ---
Nephrology - PN: Subj Interval history: Ms. Leonard is seen in follow-up of her end-stage renal disease. She dialyzed yesterday and is stable. She is received IV analgesics this morning in anticipation of dressing change of her left hand. Heart is without rub or gallop the chest is clear. She will be dialyzed tomorrow. Exam (PN)-Nephrology - Vital Signs Vital signs: Period Temp Pulse Resp BP Sys/Jaimes Pulse Ox Last 24 Hr 96.9 F-99.3 F 85-99 16-18 93-110/65-75 94-98 - Lab 12/18/16 06:21 12/18/16 06:21 Most recent lab results Calcium 8.7 MG/DL (8.5-10.1) 12/18/16 06:21 Phosphorus 2.2 MG/DL (2.5-4.9) L 12/18/16 06:21 Magnesium 2.2 MG/DL (1.8-2.4) 12/15/16 04:51 Assessment and Plan (1) End stage renal disease Problem details: No acute indication for HD at this time. Status: Chronic Assessment and plan: Dialysis today Current Visit: No (2) Peripheral vascular disease due to secondary diabetes mellitus Problem details: S/p transmetatarsal amputation of the right forefoot. Also with new c/o of pain in the left lateral foot and lower leg. Status: Chronic Assessment and plan: Amp left 4th finger Current Visit: No
[2016-12-18] MEDS: CALCIUM ACETATE 667 MG CAPSULE PO SCH ×3 (09:12→18:42)
[2016-12-18] MEDS: DESITIN 4OZ/NYSTATIN 15 GRAM MIXTURE PASTE TOP SCH ×2 (09:12→21:04)
[2016-12-18] MEDS: PANTOPRAZOLE 40 MG TABLET PO SCH (09:13)
[2016-12-18] MEDS ORDERED: BISACODYL 10 MG SUPP RECTAL ONE (09:43)
[2016-12-18] MEDS ORDERED: BISACODYL 10 MG SUPP RECTAL PRN (09:43)
--- NOTE | 2016-12-18 09:43 | Hospitalist Progress Note ---
Hospitalist: Subjective Interval history: Pt ate 50% of breakfast and lunch yesterday, 25% for dinner and 10% of snack. Had IV pain medication this am so she is a little sleepy. Slept well per nursing. No new complaints. No fever. no BM recorded in several days. Exam - Constitutional Vitals: Period Temp Pulse Resp BP Sys/Jaimes Pulse Ox Last 24 Hr 96.9 F-99.3 F 85-99 16-18 93-110/65-75 94-98 Exam: cachetic, frail female lying in bed, poor dentition, NAD RRR no M CTAB nonlabored, diminished at the bases Soft, NT, ND, +BS Warm left hand wrapped in bandage and RICHARD bandage. 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 Bone cultures from the surgical margins have been sent. off Cefazolin. Stop Levaquin. Cultures reviewed with micro. DC Levaquin and start Invanz. Will consult case management to arrange for IV antibiotics outpt. (2) Peripheral vascular disease due to secondary diabetes mellitus Problem details: S/p transmetatarsal amputation of the right forefoot. Also with new c/o of pain in the left lateral foot and lower leg. Status: Chronic Assessment and plan: Continue antiplatelets. lipid panel ok. Current Visit: No (3) Poorly controlled type 1 diabetes mellitus Status: Acute Assessment and plan: Patient has recurrent hypoglycemia due to poor oral intake. Cont current insulin. Will ask IR to check PEG with gastrograffin and if works, ask nutrition for recommendations re: tubefeeds with Glucerna. dietitians note reviewed. Hopefully can start using the PEG tube after it say functionality has been verified. Current Visit: No (4) Severe protein calorie malnutrition - TFs if PEG working. Encourage oral intake. Started Remeron for possible depression in hopes of this helping her appetite. (5) End stage renal disease Problem details: No acute indication for HD at this time. Status: Chronic Assessment and plan: Nephrology following. HD per renal. Current Visit: No (6) Acute Expected blood loss anemia - Follow H and H and transfuse as needed. (7) Anorexia and possible depression - Cont Remeron. F/U Calorie count. DVT prophylaxis- Lovenox PT/OT Dispo: ? to home with HH vs. rehab at discharge. Barrier to dc is oral intake and IV antibiotics. Will ask case management to help us arrange and ask IR to check PEG to see if functioning. Monitor. Calorie count in progress. D/W nurse, hospice case manager, and pt. All questions answered. No family at bedside. Quality Measures - VTE Contraindication to Pharmacological VTE Prophylaxis: High Risk of Bleeding
[2016-12-18 10:16] LABS: Sedimentation Rate-Westergren 72 MM/HR (0-20)
[2016-12-18] MEDS ORDERED: ERTAPENEM 1,000 MG VIAL IM SCH (10:30)
[2016-12-18] MEDS ORDERED: ERTAPENEM 1,000 MG VIAL IV SCH (10:49)
[2016-12-18] MEDS: DEXTROSE 50% 25 GM/50 ML VIAL IV PRN ×2 (11:33→16:40)
[2016-12-18] MEDS ORDERED: ERTAPENEM 500 MG in SODIUM CHLORIDE 0.9% 100 ML IV SCH (12:00)
--- NOTE | 2016-12-18 12:32 | General Surgery Progress Note ---
Assessment and Plan (1) Sacral decubitus ulcer, stage II Status: Acute Assessment and plan: Local care, offloading and protection. Current Visit: Yes (2) Peripheral vascular disease due to secondary diabetes mellitus Problem details: S/p transmetatarsal amputation of the right forefoot. Also with new c/o of pain in the left lateral foot and lower leg. Status: Chronic Assessment and plan: 12/18/16 Stable post debridement of left hand with amputation of left 4th & 5th fingers. We will plan to begin daily local care and make arrangements for exterminator helper antibiotics and wound care post discharge. [facility] any point from the surgical perspective. Eschars of the right transmet stump are stable without signs of progression or infection; No surgery or debridements planned at this time. We'll watch closely for signs of infection. Local care, offloading and protection. Current Visit: No (3) Ischemic necrosis of finger Status: Acute Assessment and plan: We will plan for amputation of the left 4th finger on Friday; it will likely also involve amputation of the 5th, with extensive debridement and possible loss of the 3rd left fingers as well. The patient was made aware of this and she seemed to acknowledge it, though no verbal response was made. Her nurse was asked to notify the family of the planned surgery and we will want to discuss the surgery with them as well. We will plan to control her medical issues and get Dr Patel to continue her dialysis. Current Visit: No (4) ESRD (end stage renal disease) on dialysis Problem details: No acute indication for HD today. Status: Chronic Assessment and plan: Continue HD. Current Visit: No Subjective Patient reports: Present: other (Ana is not answering questions today. ) Exam - Constitutional Vitals: Period Temp Pulse Resp BP Sys/Jaimes Pulse Ox Last 24 Hr 97.8 F-99.3 F 85-99 16-18 93-110/65-75 94-100 General appearance: under weight, disheveled, other (She does not answer questions today. She is sitting up in bed, eating her breakfast slowly with PCT feeding her; she is not crying or in any apparent distress. ) - Extremities Exam Extremities exam: Present: other (Left hand dressing change-wound is clean without drainage or grossly ischemic progression. There is no redness noted. She actually tolerated the dressing change extremely well. ) Results - Labs CBC & BMP: 12/18/16 06:21 12/18/16 06:21 Lab Results: I have reviewed the past 24 hour labs (Post op labs stable. Micro with Gram negatives on bone and tissue preliminaries.) Quality Measures - VTE Contraindication to Pharmacological VTE Prophylaxis: High Risk of Bleeding
--- NOTE | 2016-12-18 14:55 | Fluoroscopy Report ---
FL feeding tube Indication: PEG tube patency Comparison: None Technique: Frontal views of the abdomen before and after the injection of 100 cc Gastrografin into gastrostomy tube. Findings: Images demonstrate contrast within the proximal stomach without evidence of leak. Nonspecific nonobstructive bowel gas pattern. Surgical clips noted within the right upper quadrant of the abdomen. Diffuse osteopenia. Presumed vascular catheter projects over the right iliac vessels and IVC with tip terminating over the mid right atrium. IMPRESSION: As above. PROCEDURE INTERPRETED AT [facility] DEPARTMENT OF RADIOLOGY Final Report Signed by: Dr Maxime Burns
--- NOTE | 2016-12-18 17:46 | Physician Query Form ---
CLICK EDIT DOCUMENT TO SELECT QUERY ANSWER --> OK --> SIGN Suzanne Rangel RN Clinical Reinsurance Accountant W) [phone] (f) [phone] [email or web address]: Make your selection(s) from the choices in EACH section by typing an "x" and enter comments in the comment section. Please use your independent medical judgment in providing your response. This request does not imply that any particular answer is desired or expected. CLINICAL INDICATORS: (Providers should not edit this section) Height: 5'1" Weight: 78 POUNDS General Activities Therapist BMI: 14.9 Nutritional supplements: Professor Of Genetics notes: Other clinical notes: "Cachectic" "Nutritionally is poor and will have to see about tube feedings next week" Based on the above, which following choice most accurately represents the patient's nutritional status? ( x) Malnutrition ( ) mild ( ) moderate ( x) severe ( ) Protein calorie malnutrition ( ) mild ( ) moderate ( ) severe ( ) Emaciation due to malnutrition ( ) Nutritional marasmus ( ) Underweight ( ) No nutritional deficiency ( ) Other, please specify: ( ) Clinically unable to determine Mild Malnutrition (BMI < 18.5, % Normal Body Weight 85-95%) Moderate Malnutrition (BMI < 17, % Normal Body Weight 75-85%) Severe Malnutrition (BMI < 16, % Normal Body Weight < 75%) Source: Luz COMMENTS: Use of terms such as suspected, likely, or probable (associated with a specific diagnosis that is being evaluated, monitored, or treated as if it exists) are acceptable and can be restated in the discharge summary if not ruled out. MTDD
[2016-12-18] MEDS: ENOXAPARIN 30 MG/0.3 ML SYRINGE SUBCUT SCH (18:40)
[2016-12-18] MEDS: MIRTAZAPINE 15 MG TABLET PO SCH (21:03)
[2016-12-18] MEDS: INSULIN GLARGINE 100 UNIT/ML SUBCUT SCH (21:04)
[2016-12-19] MEDS: DEXTROSE 50% 25 GM/50 ML VIAL IV PRN (03:05)
[2016-12-19] MEDS: DESITIN 4OZ/NYSTATIN 15 GRAM MIXTURE PASTE TOP SCH (08:15)
--- NOTE | 2016-12-19 08:25 | Nephrology Progress Note ---
Nephrology - PN: Subj Interval history: Ms. Leonard is seen in follow-up of her end-stage renal disease. She is sedate this morning breathing easily and with a regular heart rhythm. Chest is clear. Dressing on her left hand is dry she has contractures of the lower extremities. Right femoral dialysis catheter is in place. We will continue to hemodialysis. It looks like gentamicin alone given on dialysis will be able to cover antibiotic needs. We can do that with outpatient dialysis. Exam (PN)-Nephrology - Vital Signs Vital signs: Period Temp Pulse Resp BP Sys/Jaimes Pulse Ox Last 24 Hr 97.4 F-99.1 F 93-109 12-18 106-132/66-82 93-100 - Lab 12/18/16 06:21 12/18/16 06:21 Most recent lab results Calcium 8.7 MG/DL (8.5-10.1) 12/18/16 06:21 Phosphorus 2.2 MG/DL (2.5-4.9) L 12/18/16 06:21 Magnesium 2.2 MG/DL (1.8-2.4) 12/15/16 04:51 Assessment and Plan (1) End stage renal disease Problem details: No acute indication for HD at this time. Status: Chronic Assessment and plan: Dialysis today Current Visit: No (2) Peripheral vascular disease due to secondary diabetes mellitus Problem details: S/p transmetatarsal amputation of the right forefoot. Also with new c/o of pain in the left lateral foot and lower leg. Status: Chronic Assessment and plan: Amp left 4th finger Current Visit: No
[2016-12-19] MEDS: SODIUM CHLORIDE 0.9% 1,000 ML IV SCH ×2 (08:44→08:45)
[2016-12-19] MEDS: INSULIN LISPRO 100 UNIT/ML SUBCUT SCH ×2 (08:46→13:37)
[2016-12-19] MEDS: DEXTROSE 5% 1,000 ML IV SCH ×2 (08:47→13:38)
[2016-12-19] MEDS: CALCIUM ACETATE 667 MG CAPSULE PO SCH ×2 (08:48→13:38)
[2016-12-19] MEDS: PANTOPRAZOLE 40 MG TABLET PO SCH (08:48)
[2016-12-19 08:53] LABS: Magnesium 2.3 MG/DL (1.8-2.4); Phosphorous 2.3 MG/DL (2.5-4.9); Prealbumin 6.7 MG/DL (20-40)
--- NOTE | 2016-12-19 08:55 | Dialysis Note ---
Dialysis Note - Dialysis Note S: Pt seen on dialysis. No c/o. O: VSS & AF A: ESRD on CHD. Tolerating well s complications. P: Continue routine CHD as prescribed.
--- NOTE | 2016-12-19 11:08 | Discharge Summary ---
<Shane Dimas - Last Filed: 12/19/16 11:19> Hospital Course - Hospital Course Hospital Course: This is a 46-year-old [place] female who was admitted as a lateral transfer from [facility] on 12/13/2016 for further evaluation of an ischemic left fourth finger. General surgery was consulted and deemed her stable for surgical intervention at this time due to her multiple medical conditions. She was admitted to the hospital medicine service for further management. Patient does have end-stage renal disease and is on dialysis. Nephrology was consulted and the patient underwent dialysis on 12/14/2016 in preparation for surgery the following Friday. On 12/16/2016, the patient underwent amputation of the fourth and fifth fingers of the left hand with partial closure. Surgery was performed by Dr. Rice. She was returned to the floor in stable condition. The remainder of her hospitalization was highlighted by management of her chronic conditions. She does have peripheral vascular disease due to secondary diabetes mellitus; poorly controlled type 1 diabetes mellitus. She was also treated for anorexia and possible depression with Remeron and caloric count. Patient's nutrition is poor. Though she does have a PEG tube its functionality has been questionable. She is to follow-up with general surgery post discharge for further evaluation of PEG tube. Tissue cultures of the surgical specimen grew E. coli ESBL and gram-positive cocci. This can be covered with gentamicin on hemodialysis as an outpatient. At this time the patient has reached maximum benefit from hospitalization and is stable for discharge. She is to follow-up with general surgery as well as nephrology as an outpatient. Additional discharge orders and instructions to follow per addendum by Dr. Miles. - Time spent with patient Time with patient DS: Greater than 30 minutes Specialty Discharge - Follow Up or Referrals Follow up with: Freddy Patel MD [Physician] - 2 Weeks Freddy Rice MD [Physician] - 2 Weeks md, pcp [Other] - 2 Weeks Discharge Plan - Discharge Data Disposition: Swing Bed, [facility] Based, [facility] [place] - Discharge Medications New Bisacodyl Supp [Dulcolax Supp] 10 mg RECTAL DAILY PRN #0 supp PRN Reason: Constipation Gentamicin Inj [Garamycin Inj] 137 mg IV Q72H 28 Days Glucagon 1 mg IM PRN PRN #0 vial PRN Reason: Hypoglycemia w/o IV access Insulin Aspart [NovoLOG FlexPen] See Protocol SUBCUT ACHS #1 applicator Tramadol HCl [Tramadol Tab] 50 mg PO Q6H PRN #20 tablet PRN Reason: Pain Acetaminophen Tab [Tylenol Tab] 650 mg PO Q6H PRN #0 tablet PRN Reason: Pain Mild (1-3) Pantoprazole Tab [Protonix Tab] 40 mg PO DAILY tablet Continue Insulin Glargine [Lantus] 15 units SUBCUT BEDTIME #1 syringe Calcium Acetate [Phoslo] 2,001 mg PO TID W/MEALS - Follow Up or Referral - Forms/Instructions Exam - Constitutional Vitals: Period Temp Pulse Resp BP Sys/Jaimes Pulse Ox Last 24 Hr 97.4 F-99.1 F 93-109 12-18 115-132/70-82 93-99 Discharge Results Procedures and tests throughout hospitalization: Pending Orders 12/16/16 Tissue (Biopsy) Culture and GS Routine Labs on day of discharge: Labs from last 24 hours 12/19/16 12/19/16 12/19/16 07:48 06:54 05:24 POC Glucose 199 H 186 H Phosphorus 2.3 L Magnesium 2.3 Prealbumin 6.7 L 12/19/16 12/19/16 12/18/16 03:27 02:53 20:17 POC Glucose 199 H 32 L* 235 H Phosphorus Magnesium Prealbumin 12/18/16 12/18/16 17:07 16:20 POC Glucose 208 H 56 L Phosphorus Magnesium Prealbumin Preliminary micro results at discharge 12/16/16 Unknown Tissue Culture - Preliminary Bone - Left Escherichia coli ESBL Gram Positive Cocci Gram Positive Cocci#2 DS: Provider Date of admission: 12/13/16 14:52 Primary care physician: Ricarda Orourke MD Attending physician on admission: Juan Subramanian MD Consults: 12/13/16 16:15 Consult to Physician [CONS] Routine Comment: Consulting Provider: Freddy Rice Person Notified: DR RICE Date Notified: 12/13/16 Time Notified: 16:17 12/14/16 09:18 Consult to Physician [CONS] Routine Comment: Consulting Provider: Consult to Specialist Group: Nephrology Person Notified: DR PATEL Date Notified: 12/14/16 Time Notified: 09:28 12/14/16 11:49 Consult to Anesthesiology [CONS] Routine Consulting Provider: Reason for Anesthesiology: Pre-op Clearance 12/16/16 08:09 Consult to Wound Care - North [CONS] Routine Reason for Wound Care: Wound Care Management Consult Comment: left hand 12/16/16 08:29 Consult to Pharmacy [CONS] Routine Reason for Pharmacy Consult: Adjust Meds Renal Funct 12/18/16 09:59 Consult to Case Mgmt/Social Srvs [CONS] Routine Reason for Case Mgmt/Social Srvs: Home IV Therapy Home Health 12/18/16 12:55 Consult to Dietitian [CONS] Routine Reason for Dietitian: TF-Initiate/Manage Consult Comment: tubefeeds per nutrition recommendations per PEG Discharging clinician: Shane RIOS Expected date of discharge: 12/19/16 <Carri Miles - Last Filed: 12/19/16 14:24> Hospital Course - Hospital Course Hospital Course: Pt was tolerating 50% of meals. No new complaints or issues noted otherwise. - Time spent with patient Time with patient DS: Greater than 30 minutes (35 minutes arranging this discharge.) Diagnosis - Discharge Diagnosis (1) Severe protein-calorie malnutrition Status: Acute (2) Diabetes mellitus Status: Chronic (3) End stage renal disease on dialysis Status: Chronic (4) Peripheral arterial disease Status: Chronic (5) Sacral decubitus ulcer, stage II Status: Chronic (6) Anemia Status: Chronic (7) Dementia Status: Chronic Discharge Plan - Discharge Data Condition at Discharge: Stable Discharge Diet: diabetic diet, other (renal) Activity: resume usual activities as tolerated, as per physical therapy Contact your physician if you experience:: fever over 101, Difficulty voiding, Redness or swelling, Nausea/Vomiting, Shortness of breath, Bleeding, pain uncontrolled by pain medications Exam - Constitutional Exam: cachetic, frail female lying in bed, poor dentition, NAD RRR no M CTAB nonlabored, diminished at the bases Soft, NT, ND, +BS Warm left hand wrapped in bandage and RICHARD bandage. MARION, atrophied
[2016-12-19] MEDS ORDERED: SODIUM CHLORIDE 0.9% IV PRN (14:22)
[2016-12-19] MEDS ORDERED: GENTAMICIN IV PRN (14:22)
[2016-12-19] MEDS ORDERED: GENTAMICIN INJ 100 MG in PREMIX 1 EACH IV SCH (14:30)
[2016-12-19] MEDS ORDERED: SODIUM CHLORIDE 0.9% IV ONE (15:00)
[2016-12-19] MEDS ORDERED: GENTAMICIN IV ONE (15:00)
[2016-12-19 17:56] VITALS: BP 123/71
--- NOTE | 2017-01-04 07:35 | Hospitalist History & Physical ---
Assessment and Plan (1) Diabetes mellitus Status: Chronic Assessment and plan: Will start accu-checks with ss coverage. Will obtain HGA1C. Qualifiers: Diabetes mellitus type: type 1 Chronic kidney disease stage: on chronic dialysis (2) End stage renal disease on dialysis Status: Chronic Assessment and plan: Will consult Nephrology to management. (3) Peripheral arterial disease Status: Chronic Assessment and plan: Will consult surgery to evaluate recent left digit amputation and possible surgical evaluations of sacral wounds. (4) Sepsis Status: Acute Assessment and plan: Blood cultures were obtained; broad-spectrum antibiotics were started. Wound cultures were obtained; await results. Will continue antibiotics; nephrology to manage, History of Present Illness Chief complaint: infected wounds; poor wound healing History of present illness: This is a very unfortunate chronically ill 46 year old female that presented to the ED at [facility] as a lateral transfer from the [facility] for evaluation of sepsis secondary to multiple decubitus ulcerations. The patient has a very extensive medical history significant for congestive heart failure, myocardial infarction, peripheral arterial disease, anxiety, depression, insulin-dependent diabetes mellitus, obstructive sleep apnea, arthritis, dyslipidemia, anemia, and end- stage renal disease. She has a surgical history of appendectomy and a long history of amputations to her right foot, left below the knee amputation, right 2nd, 3rd, 4th digits. On last night, the patient was brought to the ED by her daughter. The daughter reported to the staff that her mother was febrile and that her wounds were not healing. A sepsis work-up was initiated; blood cultures were obtained and broad spectrum antibiotics were initiated. The patient was recently discharged from [facility] on 12/19 in which she underwent amputations of the 4th and 5th digits of the left hand under the direction of Dr. Rice. After brief discussion with Dr. Turner and Dr. Jansen, the patient will be admitted to the hospitalist services for continuation of care and medical management. We will consult nephrology to assist. Home Medications Medication Instructions Recorded Confirmed Type Insulin Glargine [Lantus] 15 units SUBCUT BEDTIME #1 syringe 12/04/16 01/04/17 Rx Calcium Acetate [Phoslo] 2,001 mg PO TID W/MEALS 12/13/16 01/04/17 History Acetaminophen Tab [Tylenol Tab] 650 mg PO Q6H PRN #0 tablet 12/19/16 01/04/17 Rx Bisacodyl Supp [Dulcolax Supp] 10 mg RECTAL DAILY PRN #0 supp 12/19/16 01/04/17 Rx Gentamicin Inj [Garamycin Inj] 137 mg IV Q72H 28 Days 12/19/16 01/04/17 Rx Glucagon 1 mg IM PRN PRN #0 vial 12/19/16 01/04/17 Rx Insulin Aspart [NovoLOG FlexPen] See Protocol SUBCUT ACHS #1 12/19/16 01/04/17 Rx applicator Pantoprazole Tab [Protonix Tab] 40 mg PO DAILY tablet 12/19/16 01/04/17 Rx Tramadol HCl [Tramadol Tab] 50 mg PO Q6H PRN #20 tablet 12/19/16 01/04/17 Rx Allergies Allergy/AdvReac Type Severity Reaction Status Date / Time No Known Allergies Allergy Verified 12/02/16 18:00 Medical,Surgical,& Family Hx - Medical History Cardio: History of: Cerebrovascular Disease (questionable TIA), CHF, Hypertension, [place] No history of: CAD Psychological: History of: Anxiety Disorders, Depression Neurology: History of: Cerebrovascular Accident, TIA No history of: Seizures HEENT: History of: Eye Problem (Poor Vision) Endocrine: History of: Diabetes Mellitus (IDDM), Dyslipidemia Respiratory: History of: Obstructive Sleep Apnea Renal: History of: Dialysis (Tues, Thur, Sat), Renal Failure Musculoskeletal: History of: Amputation (Right Foot; Left BKA; Right second, third, and fourth digit amputation), Musculoskeletal Problems (Arthritis) Hematology: History of: Anemia Reproductive: No history of: Complication Other: History of: Skin Problems (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) No history of: Anesthesia Reactions - Surgical History Cardiac Surgeries: Patient Denies: Cardiac Catheterization Neurologic Surgeries: Patient denies: Neurologic Surgery HEENT Surgeries: Patient denies: Eye Surgery, Tonsilectomy & Adenoidectomy Abdominal Surgeries: Surgical HX of: Appendectomy Patient denies: Abdominal Surgery Reproductive Surgeries: Surgical HX of;: Section, Gynecologic Surgery Patient denies;: Genitourinary Surgery Orthopedic Surgeries: Surgical HX of;: Implanted Devices (Right Subclavian Dilaysis Catheter), Orthopedic Surgery (Left BKA, Right Foot Amputation) - Family History Family History: Reports;: Family Cancer, Family Diabetes, Family Heart Disease, Family Hypertension - Social History Smoking Status: Never smoker Frequency of Alcohol Use: None Type of Drug Use: None Exam - Constitutional General appearance: cachectic - Head Head exam: Present: normal inspection, normocephalic - Eye Eye exam: Present: conjunctival injection. Absent: nystagmus, periorbital swelling, scleral icterus Pupils: Present: OXANA, normal accommodation - ENT ENT exam: Present: normal exam, normal oropharynx - Neck Neck exam: Present: normal inspection. Absent: lymphadenopathy, meningismus, tenderness, thyromegaly - Respiratory Respiratory exam: Present: clear to auscultation bilaterally. Absent: rales, rhonchi, stridor, wheezes - Cardiovascular Cardiovascular exam: Present: regular rate and rhythm. Absent: carotid bruit, diastolic murmur, gallop, JVD, rubs, systolic murmur - GI/Abdominal GI/Abdominal exam: Present: normal bowel sounds, soft. Absent: distended, firm , guarding - Extremities Exam Extremities exam: Present: other (amputations to R foot and LBKA) - Back Exam Back exam: Present: normal inspection - Neurological Exam Neurological exam: Present: alert, oriented X3, CN II-XII intact - Psychiatric Psychiatric exam: Present: flat affect - Skin Skin exam: Present: normal color, dry Results - Labs CBC & BMP: 12/18/16 06:21 12/18/16 06:21 Lab Results: I have reviewed the past 24 hour labs Quality Measures - VTE Contraindication to Pharmacological VTE Prophylaxis: High Risk of Bleeding
== END 2016-12-19 16:30 | disposition home or self-care (01) | DRG 255 ==
LOC: EDBD → EDUNIT# → N.ED 13:18 → SUATTDRO 14:52 → N.EDINP 14:52 → N.3E 15:43
PROVIDERS: ADMIT Internal Medicine; ATTEND Pediatrics

== ENCOUNTER 2017-01-04 05:51 | Inpatient (IN) ==
[2017-01-04] MEDS ORDERED: SODIUM CHLORIDE 0.9% 1,000 ML IV STA (06:11)
[2017-01-04] MEDS ORDERED: VANCOMYCIN INJ 1,000 MG in SODIUM CHLORIDE 0.9% 250 ML IV STA (06:11)
--- NOTE | 2017-01-04 06:18 | Emergency Department Note ---
Arrival - Arrival Chief Complaint: Wound/Laceration ED Nursing Triage Note: C/O Wound to sacral area- Pt is unable to provide any information. No family with patient. 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 The patient was dropped off at [facility] by her daughter with the statement that she developed a sacral ulcer in the last couple days. However the patient has a very large deep sacral ulcer as well as recent amputation of the left ring and pinky fingers per Dr. Rice. The patient presented to [facility] borderline hypotensive with a fever and leukocytosis. She was cultured and given a dose of Rocephin then sent here. The patient is alert and oriented to person and place but can give very little cognizant history as she stays in a chronically confused state per the family. Of note she does dialyze Tuesdays and Saturdays. Currently she appears groaning in the position in no acute medical distress. Onset (ago): week(s) Allergies/Adverse Reactions: Allergies Allergy/AdvReac Type Severity Reaction Status Date / Time No Known Allergies Allergy Verified 12/02/16 18:00 Home Medications: Home Medications Medication Instructions Recorded Confirmed Type Insulin Glargine [Lantus] 15 units SUBCUT BEDTIME #1 syringe 12/04/16 01/04/17 Rx Calcium Acetate [Phoslo] 2,001 mg PO TID W/MEALS 12/13/16 01/04/17 History Acetaminophen Tab [Tylenol Tab] 650 mg PO Q6H PRN #0 tablet 12/19/16 01/04/17 Rx Bisacodyl Supp [Dulcolax Supp] 10 mg RECTAL DAILY PRN #0 supp 12/19/16 01/04/17 Rx Gentamicin Inj [Garamycin Inj] 137 mg IV Q72H 28 Days 12/19/16 01/04/17 Rx Glucagon 1 mg IM PRN PRN #0 vial 12/19/16 01/04/17 Rx Insulin Aspart [NovoLOG FlexPen] See Protocol SUBCUT ACHS #1 12/19/16 01/04/17 Rx applicator Pantoprazole Tab [Protonix Tab] 40 mg PO DAILY tablet 12/19/16 01/04/17 Rx Tramadol HCl [Tramadol Tab] 50 mg PO Q6H PRN #20 tablet 12/19/16 01/04/17 Rx Review of System - Review of System ROS unobtainable: due to mental status - Review of System Constitutional: Present: as per HPI Skin: Present: as per HPI Medical,Surgical,& Family Hx - Medical History Cardio: History of: Cerebrovascular Disease (questionable TIA), CHF, Hypertension, [place] No history of: CAD Psychological: History of: Anxiety Disorders, Depression Neurology: History of: Cerebrovascular Accident, TIA No history of: Seizures HEENT: History of: Eye Problem (Poor Vision) Endocrine: History of: Diabetes Mellitus (IDDM), Dyslipidemia Respiratory: History of: Obstructive Sleep Apnea Renal: History of: Dialysis (Tues, Thur, Sat), Renal Failure Musculoskeletal: History of: Amputation (Right Foot; Left BKA; Right second, third, and fourth digit amputation), Musculoskeletal Problems (Arthritis) Hematology: History of: Anemia Reproductive: No history of: Complication Other: History of: Skin Problems (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) No history of: Anesthesia Reactions - Surgical History Cardiac Surgeries: Patient Denies: Cardiac Catheterization Neurologic Surgeries: Patient denies: Neurologic Surgery HEENT Surgeries: Patient denies: Eye Surgery, Tonsilectomy & Adenoidectomy Abdominal Surgeries: Surgical HX of: Appendectomy Patient denies: Abdominal Surgery Reproductive Surgeries: Surgical HX of;: Section, Gynecologic Surgery Patient denies;: Genitourinary Surgery Orthopedic Surgeries: Surgical HX of;: Implanted Devices (Right Subclavian Dilaysis Catheter), Orthopedic Surgery (Left BKA, Right Foot Amputation) - Family History Family History: Reports;: Family Cancer, Family Diabetes, Family Hypertension - Social History Smoking Status: Never smoker Frequency of Alcohol Use: None Type of Drug Use: None Exam Physical Examination: GENERAL: Wasted chronically ill-appearing female groaning in the position. HEENT: Normocephalic. No trauma. Moist mucous membranes. EOMI. PERRLA. ENT NML NECK: Supple. No adenopathy. CARDIAC: Regular. No murmurs. Heart rate 84 CHEST: Scattered expiratory rhonchi. No respiratory distress. O2 sat 88%. Chest wall Vas-Cath noted ABDOMEN: Soft. Nontender. Active bowel sounds. EXTREMITIES: Status post bilateral BKA's, status post left fourth and fifth finger amputation. SKIN: No diaphoresis. No rash. 6 cm diameter sacral ulcer with some scant purulence noted NEURO: Alert but confused. Vital Signs: Vital Signs Temperature 98.2 F 01/04/17 05:51 Pulse Rate 84 01/04/17 06:39 Respiratory Rate 20 01/04/17 06:39 Blood Pressure 89/59 01/04/17 05:51 O2 Sat by Pulse Oximetry 100 01/04/17 06:39 Course - Consultations Consultation #1: Discussed with hospitalist service who will admit for further evaluation treatment. Results - Labs CBC & BMP: 01/04/17 06:38 01/04/17 06:38 Labs: I have reviewed the laboratory noted the elevated white blood count, low potassium, and expected abnormalities of renal function. - Impressions EKG: Sinus rhythm. Borderline right axis deviation with nonspecific ST changes. Normal MA interval and QRS duration at rate of 83. No acute injury pattern noted. - Diagnostic Findings Procedure: Chest x-ray: image reviewed by me, report reviewed by me ( Questionable early left lower lobe infiltrate) Disposition Clinical Impression: Sacral ulcer, Recent left 4th/5th finger amputation , Incipient sepsis, Left lower lobe infiltrate, Hypokalemia, Dialysis dependent renal failure Disposition: Still a Patient Condition: Guarded Time of Disposition: 07:00
[2017-01-04] MEDS ORDERED: ALBUTEROL/IPRATROPIUM 3 ML NEB RESP TX STA (06:24)
[2017-01-04] MEDS ORDERED: SODIUM CHLORIDE 0.9% 250 ML IV ONE (06:31)
[2017-01-04] MEDS ORDERED: VANCOMYCIN 1,000 MG VIAL ONE (06:31)
--- NOTE | 2017-01-04 07:14 | EKG Report ---
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
[2017-01-04 07:19] LABS: Basophils # 0.1 10*3/uL (0.0-0.2); Basophils % 0.5 % (0.0-0.8); Eosinophils # 0.1 10*3/uL (0.0-0.87); Eosinophils % 0.4 % (0.00-10.9); Hematocrit 31.5 VOL% (35.7-47.0); Hemoglobin 9.9 GM/DL (12.0-16.0); Immature Granulocytes % 1.4 %; Immature Granulocytes Absolute 0.26 #; Lymphocytes # 1.3 10*3/uL (1.4-4.0); Mean Corpuscular HGB Conc 31.4 GM/DL (32-36); Mean Corpuscular Hemoglobin 27 PG (27-34); Mean Corpuscular Volume 86.8 FL (87-102); Mean Platelet Volume 10.1 FL (9.6-12.0); Monocytes # 2.1 10*3/uL (0.11-0.8); Monocytes % 10.8 % (1.7-12.7); NRBC # 0.02 10*3/uL; Neutrophils # 15.3 10*3/uL (1.4-7.4); Neutrophils % 79.9 % (38.7-73.9); Platelet Count 313 T/CUMM (130-400); Red Blood Count 3.63 MC/CUMM (3.8-5.5); Red Cell Distribution Width 17.3 % (9.3-17.3); White Blood Count 19.1 T/CUMM (4-12)
[2017-01-04 07:38] LABS: Alanine Aminotransferase < 6 U/L (13-56); Albumin 1.7 G/DL (3.4-5.0); Alkaline Phosphatase 225 U/L (45-117); Aspartate Amino Transferase 26 U/L (0-37); Blood Urea Nitrogen 23 MG/DL (7-18); Calcium 7.7 MG/DL (8.5-10.1); Glucose 123 MG/DL (74-106); Lactic Acid 0.9 MMOL/L (0.4-2.0); Osmolality,Calculated 277.8 MOS/KG (273-304); Potassium 2.9 MMOL/L (3.5-5.1); Sodium 137 MMOL/L (136-145); Total Protein 7.2 G/DL (6.4-8.3)
--- NOTE | 2017-01-04 08:34 | Hospitalist History & Physical ---
Assessment and Plan (1) Diabetes mellitus Status: Acute Assessment and plan: Will start accuchecks with SS coverage. Current Visit: No (2) ESRD (end stage renal disease) on dialysis Status: Acute Assessment and plan: We have consulted Nephrology; agree with plan to dialyze today. Current Visit: No (3) Sepsis Status: Acute Assessment and plan: Blood cultures were obtained prior to transfer and broad-spectrum antibiotics were started. Will obtain wound cultures and continue antibiotics per nephrology direction. Current Visit: No (4) Sacral decubitus ulcer, stage II Status: Chronic Current Visit: No History of Present Illness History of present illness: This is a very unfortunate chronically ill 46 year old female that presented to the ED at [facility] as a lateral transfer from the [facility] for evaluation of sepsis secondary to multiple decubitus ulcerations. The patient has a very extensive medical history significant for congestive heart failure, myocardial infarction, peripheral arterial disease, anxiety, depression, insulin-dependent diabetes mellitus, obstructive sleep apnea, arthritis, dyslipidemia, anemia, and end- stage renal disease. She has a surgical history of appendectomy and a long history of amputations to her right foot, left below the knee amputation, right 2nd, 3rd, 4th digits. On last night, the patient was brought to the ED by her daughter. The daughter reported to the staff that her mother was febrile and that her wounds were not healing. A sepsis work-up was initiated; blood cultures were obtained and broad spectrum antibiotics were initiated. The patient was recently discharged from [facility] on 12/19 in which she underwent amputations of the 4th and 5th digits of the left hand under the direction of Dr. Rice. After brief discussion with Dr. Turner and Dr. Jansen, the patient will be admitted to the hospitalist services for continuation of care and medical management. We will consult nephrology to assist. Home Medications Medication Instructions Recorded Confirmed Type Insulin Glargine [Lantus] 15 units SUBCUT BEDTIME #1 syringe 12/04/16 01/04/17 Rx Calcium Acetate [Phoslo] 2,001 mg PO TID W/MEALS 12/13/16 01/04/17 History Acetaminophen Tab [Tylenol Tab] 650 mg PO Q6H PRN #0 tablet 12/19/16 01/04/17 Rx Bisacodyl Supp [Dulcolax Supp] 10 mg RECTAL DAILY PRN #0 supp 12/19/16 01/04/17 Rx Gentamicin Inj [Garamycin Inj] 137 mg IV Q72H 28 Days 12/19/16 01/04/17 Rx Glucagon 1 mg IM PRN PRN #0 vial 12/19/16 01/04/17 Rx Insulin Aspart [NovoLOG FlexPen] See Protocol SUBCUT ACHS #1 12/19/16 01/04/17 Rx applicator Pantoprazole Tab [Protonix Tab] 40 mg PO DAILY tablet 12/19/16 01/04/17 Rx Tramadol HCl [Tramadol Tab] 50 mg PO Q6H PRN #20 tablet 12/19/16 01/04/17 Rx Allergies Allergy/AdvReac Type Severity Reaction Status Date / Time No Known Allergies Allergy Verified 12/02/16 18:00 Medical,Surgical,& Family Hx - Medical History Cardio: History of: Cerebrovascular Disease (questionable TIA), CHF, Hypertension, [place] No history of: CAD Psychological: History of: Anxiety Disorders, Depression Neurology: History of: Cerebrovascular Accident, TIA No history of: Seizures HEENT: History of: Eye Problem (Poor Vision) Endocrine: History of: Diabetes Mellitus (IDDM), Dyslipidemia Respiratory: History of: Obstructive Sleep Apnea Renal: History of: Dialysis ([place], [place], [place]), Renal Failure Musculoskeletal: History of: Amputation (Right Foot; Left BKA; Right second, third, and fourth digit amputation), Musculoskeletal Problems (Arthritis) Hematology: History of: Anemia Reproductive: No history of: Complication Other: History of: Skin Problems (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) No history of: Anesthesia Reactions - Surgical History Cardiac Surgeries: Patient Denies: Cardiac Catheterization Neurologic Surgeries: Patient denies: Neurologic Surgery HEENT Surgeries: Patient denies: Eye Surgery, Tonsilectomy & Adenoidectomy Abdominal Surgeries: Surgical HX of: Appendectomy Patient denies: Abdominal Surgery Reproductive Surgeries: Surgical HX of;: Section, Gynecologic Surgery Patient denies;: Genitourinary Surgery Orthopedic Surgeries: Surgical HX of;: Implanted Devices (Right Subclavian Dilaysis Catheter), Orthopedic Surgery (Left BKA, Right Foot Amputation) - Family History Family History: Reports;: Family Cancer, Family Diabetes, Family Heart Disease, Family Hypertension - Social History Smoking Status: Never smoker Frequency of Alcohol Use: None Type of Drug Use: None Exam - Constitutional Vitals: Period Temp Pulse Resp BP Sys/Jaimes Pulse Ox Last 24 Hr 98.2 F-98.2 F 84-89 12-20 89-108/59-67 88-100 General appearance: cachectic - Head Head exam: Present: normal inspection, normocephalic, atraumatic - Eye Eye exam: Present: EOMI, conjunctival injection Pupils: Present: OXANA, normal accommodation - ENT ENT exam: Present: normal exam, normal external ear exam, normal oropharynx - Neck Neck exam: Present: normal inspection, lymphadenopathy, meningismus, tenderness , thyromegaly - Respiratory Respiratory exam: Present: clear to auscultation bilaterally. Absent: rales, rhonchi, stridor, wheezes - Cardiovascular Cardiovascular exam: Present: regular rate and rhythm. Absent: carotid bruit, diastolic murmur, gallop, JVD, rubs, tachycardia - GI/Abdominal GI/Abdominal exam: Present: normal bowel sounds, soft - Extremities Exam Extremities exam: Present: other (Left BKA/R foot amputation) - Back Exam Back exam: Present: normal inspection - Neurological Exam Neurological exam: Present: alert, oriented X3, CN II-XII intact - Psychiatric Psychiatric exam: Present: flat affect - Skin Skin exam: Present: normal color, warm, dry (ulcerations to sacrum noted) Results - Labs CBC & BMP: 01/04/17 06:38 01/04/17 06:38 Lab Results: I have reviewed the past 24 hour labs
[2017-01-04] MEDS ORDERED: GLUCAGON 1 MG VIAL IM PRN ×2 (09:01)
[2017-01-04] MEDS ORDERED: ACETAMINOPHEN 325 MG TABLET PO PRN (09:01)
[2017-01-04] MEDS ORDERED: ONDANSETRON 4 MG/2 ML VIAL IV PRN (09:01)
[2017-01-04] MEDS ORDERED: BISACODYL 10 MG SUPP RECTAL PRN (09:01)
[2017-01-04] MEDS ORDERED: PANTOPRAZOLE 40 MG TABLET PO SCH (09:01)
[2017-01-04] MEDS ORDERED: DOCUSATE SODIUM 100 MG CAPSULE PO PRN (09:01)
--- NOTE | 2017-01-04 09:02 | XRay Report ---
History: Shortness of breath and fever Date: 01/04/2017 Study: Chest x-ray AP portable Comparison exam: December 13, 2016 There is borderline cardiomegaly. The mediastinal contours are stable. The pulmonary vasculature is not engorged. Dialysis catheter from femoral approach overlies the right atrial level. There is no gross pleural effusion. There is mild asymmetric patchy density in the left lung base which could represent early inflammatory infiltrate. Shallow breath. Osseous structures are unchanged. Impression: Mild atelectasis/infiltrate left lower lobe which could represent pneumonia. Otherwise unchanged PROCEDURE INTERPRETED AT [facility] DEPARTMENT OF RADIOLOGY Final Report Signed by: Dr. Jacquie Valdes
[2017-01-04] MEDS: INSULIN REGULAR 100 UNIT/ML SUBCUT SCH ×4 (09:48→20:55)
--- NOTE | 2017-01-04 11:20 | General Surgery Consult Note ---
Assessment and Plan - Time spent with patient Time spent with patient: Greater than 30 minutes (1) Sacral decubitus ulcer, stage II Status: Chronic Assessment and plan: This does not appear to be an acute problem. This appears more chronic. It does not appear actively infected. I would not be able to tell completely without debriding this. To debride this would require a trip to the operating room which we can certainly do but I think we should look for other infectious sources first as this is not obviously infected. Current Visit: No (2) Atelectasis of left lung Status: Acute Assessment and plan: It is unclear if this is atelectasis or pneumonia. It is unclear if this is the source of her elevated white blood cell count. She does not appear obviously septic or ill. I will leave it up to you as to whether or not you feel this is a fever source. If no other fever source can be identified I can look at debridement of her sacral ulcer in the operating room. Current Visit: Yes History of Present Illness Chief complaint: Sacral ulcer History of present illness: Ms. Leonard is a 46 year old female Who recently had amputation of fingers from her hand by Dr. Rice who now is readmitted to the hospital with a new problem. Apparently she was brought the [facility] because of development of the sacral pressure ulcer. The patient is not a very good historian. She denies any pain in her sacral area to. She denies any fever or chills. She denies any abdominal pain. She denies any chest pain or shortness of breath. She did have a chest x-ray which showed a left lower lobe atelectasis versus infiltrate. She states that she has had no new pain or drainage from her lower extremities where she has had previous amputations. She has not had any increasing pain drainage or swelling of her hand. Home Medications Medication Instructions Recorded Confirmed Type Insulin Glargine [Lantus] 15 units SUBCUT BEDTIME #1 syringe 12/04/16 01/04/17 Rx Calcium Acetate [Phoslo] 2,001 mg PO TID W/MEALS 12/13/16 01/04/17 History Acetaminophen Tab [Tylenol Tab] 650 mg PO Q6H PRN #0 tablet 12/19/16 01/04/17 Rx Bisacodyl Supp [Dulcolax Supp] 10 mg RECTAL DAILY PRN #0 supp 12/19/16 01/04/17 Rx Gentamicin Inj [Garamycin Inj] 137 mg IV Q72H 28 Days 12/19/16 01/04/17 Rx Glucagon 1 mg IM PRN PRN #0 vial 12/19/16 01/04/17 Rx Insulin Aspart [NovoLOG FlexPen] See Protocol SUBCUT ACHS #1 12/19/16 01/04/17 Rx applicator Pantoprazole Tab [Protonix Tab] 40 mg PO DAILY tablet 12/19/16 01/04/17 Rx Tramadol HCl [Tramadol Tab] 50 mg PO Q6H PRN #20 tablet 12/19/16 01/04/17 Rx Allergies Allergy/AdvReac Type Severity Reaction Status Date / Time No Known Allergies Allergy Verified 12/02/16 18:00 Medical,Surgical,& Family Hx - Medical History Cardio: History of: Cerebrovascular Disease (questionable TIA), CHF, Hypertension, [place] No history of: CAD Psychological: History of: Anxiety Disorders, Depression Neurology: History of: Cerebrovascular Accident, TIA No history of: Seizures HEENT: History of: Eye Problem (Poor Vision) Endocrine: History of: Diabetes Mellitus (IDDM), Dyslipidemia Respiratory: History of: Obstructive Sleep Apnea Renal: History of: Dialysis (Tues, Thur, Sat), Renal Failure Musculoskeletal: History of: Amputation (Right Foot; Left BKA; Right second, third, and fourth digit amputation), Musculoskeletal Problems (Arthritis) Hematology: History of: Anemia Reproductive: No history of: Complication Other: History of: Skin Problems (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) No history of: Anesthesia Reactions - Surgical History Cardiac Surgeries: Patient Denies: Cardiac Catheterization Neurologic Surgeries: Patient denies: Neurologic Surgery HEENT Surgeries: Patient denies: Eye Surgery, Tonsilectomy & Adenoidectomy Abdominal Surgeries: Surgical HX of: Appendectomy Patient denies: Abdominal Surgery Reproductive Surgeries: Surgical HX of;: Section, Gynecologic Surgery Patient denies;: Genitourinary Surgery Orthopedic Surgeries: Surgical HX of;: Implanted Devices (Right Subclavian Dilaysis Catheter), Orthopedic Surgery (Left BKA, Right Foot Amputation) - Family History Family History: Reports;: Family Cancer, Family Diabetes, Family Heart Disease, Family Hypertension Denies;: Family Anesthesia Reaction, Family Hematology, Family Psychiatric Problems, Family Stroke, Additional Family History - Social History Smoking Status: Never smoker Frequency of Alcohol Use: None Type of Drug Use: None - Constitutional Constitutional: Present: chills. Absent: anorexia, fever(s) - Cardiovascular Cardiovascular: Absent: chest pain at rest, chest pain with activity, dyspnea, dyspnea on exertion, syncope - Respiratory Respiratory: Absent: cough, dyspnea, hemoptysis, dyspnea on exertion - Gastrointestinal Gastrointestinal: Absent: abdominal pain, nausea, vomiting, jaundice - Genitourinary Genitourinary: Absent: hematuria - Musculoskeletal Musculoskeletal: Absent: back pain - Neurological Neurological: Absent: focal weakness, syncope - Endocrine Endocrine: Absent: polyuria Hematologic/Lymphatic: Absent: easy bleeding, easy bruising Exam - Constitutional Vitals: Period Temp Pulse Resp BP Sys/Jaimes Pulse Ox Last 24 Hr 98.1 F-98.2 F 84-89 12-20 89-108/59-67 88-100 General appearance: no acute distress, cachectic - Head Head exam: Present: normocephalic - Eye Eye exam: Absent: scleral icterus - ENT Mouth exam: Present: normal voice - Neck Neck exam: Present: trachea midline - Respiratory Respiratory exam: Present: clear to auscultation bilaterally. Absent: accessory muscle use, chest wall tenderness - Cardiovascular Cardiovascular exam: Present: RRR - GI/Abdominal GI/Abdominal exam: Present: soft. Absent: distended, tenderness, rebound - Anus/Rectum Anus/Rectum: other (Sacral area has a 3 x 5 cm eschar which appears clean with no associated cellulitis. It does not have obvious infection associated with it.) - Extremities Exam Extremities exam: Present: other (The amputation site on her hand is clean and dry without obvious cellulitis. There is some breakdown and discoloration of her heel but this appears to be more of a pressure phenomenon and not cellulitis or active infection.) - Back Exam Back exam: Present: normal inspection - Neurological Exam Neurological exam: Present: alert, oriented X3 Quality Measures - VTE Contraindication to Pharmacological VTE Prophylaxis: High Risk of Bleeding Results - Labs CBC & BMP: 01/04/17 06:38 01/04/17 06:38 Lab Results: I have reviewed the past 24 hour labs - Diagnostic Findings Procedure: Chest x-ray: report reviewed by me
--- NOTE | 2017-01-04 13:17 | Nephrology Consult Note ---
History of Present Illness Chief complaint: ESRD History of present illness: Ms. Leonard is a 46 year old female with end-stage renal disease who dialyzes at [place] [facility] Friday. She is a chronically ill bedridden lady with severe peripheral vascular disease having recently had amputation of 2 fingers and previously had amputation of other fingers. As mentioned she is bedridden and has developed a sacral decubitus. She is minimally interactive and communicative even with family members. She was taken the [facility] and ultimately transferred here because of an elevated white count and subjective fever. Chest x-ray demonstrates no significant infiltrate. Her left hand dressing is dry Impression end-stage renal disease #2 bedbound state with severe chronic illnesses and development of pressure ulcers Plan we will continue to support with hemodialysis. We have talked with the patient and family in the past about continuing versus discontinuing dialysis. She has never seemed engaged in the conversation but that option is still open should she desire it. Home Medications Medication Instructions Recorded Confirmed Type Insulin Glargine [Lantus] 15 units SUBCUT BEDTIME #1 syringe 12/04/16 01/04/17 Rx Calcium Acetate [Phoslo] 2,001 mg PO TID W/MEALS 12/13/16 01/04/17 History Acetaminophen Tab [Tylenol Tab] 650 mg PO Q6H PRN #0 tablet 12/19/16 01/04/17 Rx Bisacodyl Supp [Dulcolax Supp] 10 mg RECTAL DAILY PRN #0 supp 12/19/16 01/04/17 Rx Gentamicin Inj [Garamycin Inj] 137 mg IV Q72H 28 Days 12/19/16 01/04/17 Rx Glucagon 1 mg IM PRN PRN #0 vial 12/19/16 01/04/17 Rx Insulin Aspart [NovoLOG FlexPen] See Protocol SUBCUT ACHS #1 12/19/16 01/04/17 Rx applicator Pantoprazole Tab [Protonix Tab] 40 mg PO DAILY tablet 12/19/16 01/04/17 Rx Tramadol HCl [Tramadol Tab] 50 mg PO Q6H PRN #20 tablet 12/19/16 01/04/17 Rx Allergies Allergy/AdvReac Type Severity Reaction Status Date / Time No Known Allergies Allergy Verified 12/02/16 18:00 Medical,Surgical,& Family Hx - Medical History Cardio: History of: Cerebrovascular Disease (questionable TIA), CHF, Hypertension, [place] No history of: CAD Psychological: History of: Anxiety Disorders, Depression Neurology: History of: Cerebrovascular Accident, TIA No history of: Seizures HEENT: History of: Eye Problem (Poor Vision) Endocrine: History of: Diabetes Mellitus (IDDM), Dyslipidemia Respiratory: History of: Obstructive Sleep Apnea Renal: History of: Dialysis (Tues, Thur, Sat), Renal Failure Musculoskeletal: History of: Amputation (Right Foot; Left BKA; Right second, third, and fourth digit amputation), Musculoskeletal Problems (Arthritis) Hematology: History of: Anemia Reproductive: No history of: Complication Other: History of: Skin Problems (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) No history of: Anesthesia Reactions - Surgical History Cardiac Surgeries: Patient Denies: Cardiac Catheterization Neurologic Surgeries: Patient denies: Neurologic Surgery HEENT Surgeries: Patient denies: Eye Surgery, Tonsilectomy & Adenoidectomy Abdominal Surgeries: Surgical HX of: Appendectomy Patient denies: Abdominal Surgery Reproductive Surgeries: Surgical HX of;: Section, Gynecologic Surgery Patient denies;: Genitourinary Surgery Orthopedic Surgeries: Surgical HX of;: Implanted Devices (Right Subclavian Dilaysis Catheter), Orthopedic Surgery (Left BKA, Right Foot Amputation) - Family History Family History: Reports;: Family Cancer, Family Diabetes, Family Heart Disease, Family Hypertension Denies;: Family Anesthesia Reaction, Family Hematology, Family Psychiatric Problems, Family Stroke, Additional Family History - Social History Smoking Status: Never smoker Frequency of Alcohol Use: None Type of Drug Use: None Review of Systems 12 point system: reviewed and no additional remarkable complaints except as stated Exam - Vital Signs Vital signs: Period Temp Pulse Resp BP Sys/Jaimes Pulse Ox Last 24 Hr 98.1 F-98.2 F 84-89 12-20 89-108/59-67 88-100 - General Appearance General appearance: cachectic EENT: ATNC Neck: no JVD, no thyromegaly, no carotid bruit, supple Respiratory: no kyphosis, no scoliosis Cardiology: no murmurs, no rub, no gallops, no edema, regular rate, regular rhythm, normal S1, normal S2 Gastrointestinal: normoactive bowel sounds Integumentary: no rash, warm and dry Neurologic: no focal deficit, no asterixis, alert and oriented x3, reflexes 2+ and symmetric, gait normal, strength 5/5 Musculoskeletal: no deformities (minimally interactive), no erythema, no cyanosis, no clubbing Results - Labs CBC & BMP: 01/04/17 06:38 01/04/17 06:38 Assessment and Plan (1) End stage renal disease Problem details: No acute indication for HD at this time. Status: Chronic Assessment and plan: Hemodialysis today Current Visit: No (2) Peripheral vascular disease due to secondary diabetes mellitus Problem details: S/p transmetatarsal amputation of the right forefoot. Also with new c/o of pain in the left lateral foot and lower leg. Status: Chronic Current Visit: No Specialty Discharge - Follow Up or Referrals - Speciality Discharge Instructions Nephrology Instructions: Continue dialysis but can stop if she/family decide that it is not what she wants.
--- NOTE | 2017-01-04 13:21 | Dialysis Note ---
Dialysis Note - Dialysis Note Ms. Leonard was seen during her hemodialysis. She is unresponsive as is usual for her. Blood pressure is stable. Femoral catheter is functioning well.
[2017-01-04] MEDS ORDERED: LEVOFLOXACIN INJ 500 MG in PREMIX 1 EACH IV ONE (14:30)
[2017-01-04] MEDS ORDERED: HEPARIN 10,000 UNIT/10 ML VIAL IV PRN (14:34)
[2017-01-04] MEDS: CALCIUM ACETATE 667 MG CAPSULE PO SCH ×2 (17:18→17:54)
[2017-01-04] MEDS: PANTOPRAZOLE 40 MG TABLET PO SCH (17:19)
[2017-01-04] MEDS: COLLAGENASE OINT 30 GM TUBE TOP SCH (17:20)
[2017-01-04] MEDS: traMADol 50 MG TABLET PO PRN (20:47)
[2017-01-04] MEDS: INSULIN GLARGINE 100 UNIT/ML SUBCUT SCH (20:47)
[2017-01-04] MEDS: MORPHINE 2 MG/1 ML SYRINGE IV PRN (21:50)
[2017-01-05 05:19] LABS: Basophils # 0.1 10*3/uL (0.0-0.2); Basophils % 0.3 % (0.0-0.8); Eosinophils # 0.1 10*3/uL (0.0-0.87); Eosinophils % 0.5 % (0.00-10.9); Hematocrit 29.3 VOL% (35.7-47.0); Hemoglobin 9.3 GM/DL (12.0-16.0); Immature Granulocytes % 0.7 %; Immature Granulocytes Absolute 0.12 #; Lymphocytes # 0.9 10*3/uL (1.4-4.0); Lymphocytes % 5.1 % (21.3-54.2); Mean Corpuscular HGB Conc 31.7 GM/DL (32-36); Mean Corpuscular Hemoglobin 27 PG (27-34); Mean Corpuscular Volume 85.7 FL (87-102); Mean Platelet Volume 10.8 FL (9.6-12.0); Monocytes # 1.9 10*3/uL (0.11-0.8); Monocytes % 10.3 % (1.7-12.7); Neutrophils # 14.8 10*3/uL (1.4-7.4); Neutrophils % 83.1 % (38.7-73.9); Platelet Count 246 T/CUMM (130-400); Red Blood Count 3.42 MC/CUMM (3.8-5.5); Red Cell Distribution Width 17.1 % (9.3-17.3); White Blood Count 17.9 T/CUMM (4-12)
[2017-01-05 06:01] LABS: Alanine Aminotransferase < 6 U/L (13-56); Albumin 1.7 G/DL (3.4-5.0); Alkaline Phosphatase 223 U/L (45-117); Aspartate Amino Transferase 17 U/L (0-37); Blood Urea Nitrogen 17 MG/DL (7-18); Calcium 7.8 MG/DL (8.5-10.1); Cholesterol 109 MG/DL (50-200); Glucose 101 MG/DL (74-106); HDL Cholesterol 20 MG/DL (40-60); Magnesium 1.9 MG/DL (1.8-2.4); Osmolality,Calculated 269.2 MOS/KG (273-304); Potassium 3.1 MMOL/L (3.5-5.1); Risk Ratio 5.45; Sodium 134 MMOL/L (136-145); Total Protein 6.9 G/DL (6.4-8.3); Triglycerides 162 MG/DL (2-150); VLDL CHOLESTEROL 32.4 MG/DL
--- NOTE | 2017-01-05 07:18 | Hospitalist Progress Note ---
Assessment and Plan - Time spent with patient Time spent with patient: Less than 30 minutes (1) Sepsis Status: Acute Assessment and plan: Patient was admitted with sepsis likely secondary to community-acquired pneumonia versus sacral decubitus, although less likely. Will await cultures and continue empiric IV antibiotic therapy. We will follow-up chest x-ray today. Current Visit: No (2) Atelectasis of left lung Status: Acute Assessment and plan: Repeating chest x-ray today. Continuing IV Levaquin for presumed left lower lobe community-acquired pneumonia. Current Visit: Yes (3) Diabetes mellitus Status: Chronic Assessment and plan: Blood sugars fairly well controlled. Will continue current medical regimen. Current Visit: Yes Qualifiers: Diabetes mellitus type: type 2 Chronic kidney disease stage: on chronic dialysis (4) ESRD (end stage renal disease) on dialysis Status: Chronic Assessment and plan: Nephrology seen in assisting with dialysis. Current Visit: No (5) Sacral decubitus ulcer, stage II Status: Chronic Assessment and plan: General surgery has assessed at this time and appears to be clean and likely not the source of her sepsis. Continuing antibiotics and local wound care. Current Visit: Yes Hospitalist: Subjective Interval history: Ms. nunez is a 46-year-old female who was transferred from [facility] with fever, leukocytosis and reported hypotension with possible left lower lobe infiltrate and sacral decubitus. Chart has been reviewed and patient examined. She is awake and alert and will answer some questions however is oriented to place only. She denies any chest pain, shortness of breath, abdominal pain, nausea, vomiting, diarrhea, constipation. Exam - Constitutional Vitals: Period Temp Pulse Resp BP Sys/Jaimes Pulse Ox Last 24 Hr 98.1 F-100.5 F 88-105 16-20 103-108/60-68 99-100 General appearance: no acute distress - Head Head exam: Present: normocephalic, atraumatic - Eye Eye exam: Present: EOMI Pupils: Present: OXANA - ENT ENT exam: Present: other (Dry mucous membranes) - Neck Neck exam: Absent: lymphadenopathy, meningismus, tenderness, thyromegaly - Respiratory Respiratory exam: Present: rales (Faint inspiratory rales at the left base). Absent: accessory muscle use - Cardiovascular Cardiovascular exam: Present: regular rate and rhythm, tachycardia. Absent: systolic murmur - GI/Abdominal GI/Abdominal exam: Present: normal bowel sounds, soft. Absent: mass, rebound - Extremities Exam Extremities exam: Present: other (Right foot amputation, left [id number] amputation, multiple finger amputations bilaterally) - Neurological Exam Neurological exam: Present: alert, CN II-XII intact, other (Oriented to person only). Absent: motor sensory deficit - Psychiatric Psychiatric exam: Present: flat affect. Absent: agitated, anxious - Skin Skin exam: Present: warm, dry, other (Approximately 3 x 5 cm healing ulceration of the sacrum) Results - Labs CBC & BMP: 01/05/17 04:41 01/05/17 04:41 Lab Results: I have reviewed the past 24 hour labs Quality Measures - VTE Contraindication to Pharmacological VTE Prophylaxis: High Risk of Bleeding
--- NOTE | 2017-01-05 08:44 | Nephrology Progress Note ---
Nephrology - PN: Subj Interval history: Ms. Leonard is seen in follow-up of her end-stage renal disease. She is more verbal today but still does a little more than briefly answer 1 or 2 questions and then does not want to interact. Her chest is clear she has no edema. She tolerated yesterday's dialysis well. She had a temperature of 100.5 at midnight. This morning she is afebrile. Exam (PN)-Nephrology - Vital Signs Vital signs: Period Temp Pulse Resp BP Sys/Jaimes Pulse Ox Last 24 Hr 98.1 F-100.5 F 88-105 16-18 93-108/54-68 99-100 - Lab 01/05/17 04:41 01/05/17 04:41 Most recent lab results Calcium 7.8 MG/DL (8.5-10.1) L 01/05/17 04:41 Magnesium 1.9 MG/DL (1.8-2.4) 01/05/17 04:41 Assessment and Plan (1) End stage renal disease Problem details: No acute indication for HD at this time. Status: Chronic Assessment and plan: Hemodialysis today Current Visit: No (2) Peripheral vascular disease due to secondary diabetes mellitus Problem details: S/p transmetatarsal amputation of the right forefoot. Also with new c/o of pain in the left lateral foot and lower leg. Status: Chronic Current Visit: No
--- NOTE | 2017-01-05 09:26 | Event Note ---
I thought I was placing orders on a different patient and placed an order for consenting for surgery on this patient but immediately recognized that it was the wrong patient. I have discontinued disorder.
[2017-01-05] MEDS: PANTOPRAZOLE 40 MG TABLET PO SCH (09:55)
[2017-01-05] MEDS: CALCIUM ACETATE 667 MG CAPSULE PO SCH ×3 (09:55→18:01)
[2017-01-05] MEDS: INSULIN REGULAR 100 UNIT/ML SUBCUT SCH ×4 (09:56→20:36)
[2017-01-05] MEDS: COLLAGENASE OINT 30 GM TUBE TOP SCH (09:56)
--- NOTE | 2017-01-05 10:03 | General Surgery Progress Note ---
Assessment and Plan (1) Sacral decubitus ulcer, stage II Status: Chronic Assessment and plan: This does not appear to be an acute problem. This appears more chronic. It does not appear actively infected. I would not be able to tell completely without debriding this. To debride this would require a trip to the operating room which we can certainly do but I think we should look for other infectious sources first as this is not obviously infected. 01/05/17 it is unclear if this is the fever source. Speaking with the nurses who have had her in before they state that this sacral eschar and pressure sore of the exact identical appearance that it had on her previous admission. Clearly this is not an acute problem. If no other fever source is identified we could look at debriding this area. Current Visit: Yes (2) Atelectasis of left lung Status: Acute Assessment and plan: It is unclear if this is atelectasis or pneumonia. It is unclear if this is the source of her elevated white blood cell count. She does not appear obviously septic or ill. I will leave it up to you as to whether or not you feel this is a fever source. If no other fever source can be identified I can look at debridement of her sacral ulcer in the operating room. Current Visit: Yes Subjective Patient reports: Present: no new complaints. Absent: still having pain, shortness of breath, fever Exam - Constitutional Vitals: Period Temp Pulse Resp BP Sys/Jaimes Pulse Ox Last 24 Hr 98.4 F-100.5 F 94-105 16-18 93-108/54-68 99-100 General appearance: no acute distress - Head Head exam: Present: normocephalic - Eye Eye exam: Absent: scleral icterus - ENT Mouth exam: Absent: normal voice - Respiratory Respiratory exam: Absent: accessory muscle use - Back Exam Back exam: Present: other (Sacral ulcer is unchanged. There is a stable appearing eschar with no associated cellulitis that I can appreciate) Results - Labs CBC & BMP: 01/05/17 04:41 01/05/17 04:41 Lab Results: I have reviewed the past 24 hour labs Quality Measures - VTE Contraindication to Pharmacological VTE Prophylaxis: High Risk of Bleeding
--- NOTE | 2017-01-05 12:17 | XRay Report ---
History: Pneumonia Date: 01/05/2017 Study: Chest x-ray AP portable Comparison exam: 01/04/2017 There is continued borderline to mild cardiomegaly. The mediastinal contour is unchanged. A right femoral dialysis catheter is positioned with its tip overlying the right atrium as before. A skinfold overlies the right hemithorax. There is some continued mild patchy infiltrate in the left lung base which could represent mild pneumonia, the same or slightly improved. There is some increased mild strandy subsegmental atelectasis in the right lung base on the current exam. There is no significant pleural effusion. Osseous structures are unchanged. Impression: Continued mild left basilar pneumonia, perhaps slightly improved. Increased mild strandy subsegmental atelectasis right lung base. Otherwise unchanged PROCEDURE INTERPRETED AT [facility] DEPARTMENT OF RADIOLOGY Final Report Signed by: Dr. Jacquie Valdes
[2017-01-05] MEDS: LEVOFLOXACIN INJ 250 MG in PREMIX 1 EACH IV SCH (14:20)
[2017-01-05] MEDS: INSULIN GLARGINE 100 UNIT/ML SUBCUT SCH (20:36)
[2017-01-06] MEDS: LEVOTHYROXINE 25 MCG TABLET PO SCH (06:31)
--- NOTE | 2017-01-06 06:51 | General Surgery Progress Note ---
Assessment and Plan (1) Sacral decubitus ulcer, stage II Status: Chronic Assessment and plan: This does not appear to be an acute problem. This appears more chronic. It does not appear actively infected. I would not be able to tell completely without debriding this. To debride this would require a trip to the operating room which we can certainly do but I think we should look for other infectious sources first as this is not obviously infected. 01/05/17 it is unclear if this is the fever source. Speaking with the nurses who have had her in before they state that this sacral eschar and pressure sore of the exact identical appearance that it had on her previous admission. Clearly this is not an acute problem. If no other fever source is identified we could look at debriding this area. 01/06: Her exam was unchanged and I suspect that her elevated white blood cell count is from pneumonia. I am holding off debridement of this chronic sacral breakdown. She has what appears to be a clean eschar over this area. I am afraid that if we debride this we are going to have exposed periosteum. She really has no subcutaneous tissue in this location. Current Visit: Yes (2) Atelectasis of left lung Status: Acute Assessment and plan: It is unclear if this is atelectasis or pneumonia. It is unclear if this is the source of her elevated white blood cell count. She does not appear obviously septic or ill. I will leave it up to you as to whether or not you feel this is a fever source. If no other fever source can be identified I can look at debridement of her sacral ulcer in the operating room. Current Visit: Yes Subjective Patient reports: Present: no new complaints. Absent: fever Exam - Constitutional Vitals: Period Temp Pulse Resp BP Sys/Jaimes Pulse Ox Last 24 Hr 97 F-101.0 F 94-115 16-19 93-123/54-74 98-100 General appearance: no acute distress - Respiratory Respiratory exam: Absent: accessory muscle use - Neurological Exam Neurological exam: Present: alert, oriented X3 Results - Labs CBC & BMP: 01/05/17 04:41 01/05/17 04:41 Quality Measures - VTE Contraindication to Pharmacological VTE Prophylaxis: High Risk of Bleeding
[2017-01-06 07:16] LABS: Basophils # 0.1 10*3/uL (0.0-0.2); Basophils % 0.3 % (0.0-0.8); Eosinophils # 0.1 10*3/uL (0.0-0.87); Eosinophils % 0.3 % (0.00-10.9); Hematocrit 29.5 VOL% (35.7-47.0); Hemoglobin 9.4 GM/DL (12.0-16.0); Immature Granulocytes % 0.4 %; Immature Granulocytes Absolute 0.09 #; Lymphocytes # 0.9 10*3/uL (1.4-4.0); Lymphocytes % 4.5 % (21.3-54.2); Mean Corpuscular HGB Conc 31.9 GM/DL (32-36); Mean Corpuscular Hemoglobin 28 PG (27-34); Mean Corpuscular Volume 86.5 FL (87-102); Mean Platelet Volume 10.9 FL (9.6-12.0); Monocytes # 1.6 10*3/uL (0.11-0.8); Monocytes % 7.8 % (1.7-12.7); Neutrophils # 17.8 10*3/uL (1.4-7.4); Neutrophils % 86.7 % (38.7-73.9); Platelet Count 264 T/CUMM (130-400); Red Blood Count 3.41 MC/CUMM (3.8-5.5); Red Cell Distribution Width 17.1 % (9.3-17.3); White Blood Count 20.5 T/CUMM (4-12)
[2017-01-06 07:42] LABS: Calcium 8.8 MG/DL (8.5-10.1); Magnesium 1.9 MG/DL (1.8-2.4); Osmolality,Calculated 272.7 MOS/KG (273-304); Potassium 3.5 MMOL/L (3.5-5.1)
--- NOTE | 2017-01-06 07:47 | Hospitalist Progress Note ---
Assessment and Plan - Time spent with patient Time spent with patient: Less than 30 minutes (1) Sepsis Status: Acute Assessment and plan: Patient was admitted with sepsis likely secondary to community-acquired pneumonia versus sacral decubitus, although less likely. Will await cultures and continue empiric IV antibiotic therapy. We will follow-up chest x-ray today. 01/06/17: She has defervesced and been afebrile now for about 24 hours. However she has persistent leukocytosis with white blood count of around 20. Will continue empiric IV antibiotics while awaiting culture results. Current Visit: No (2) Atelectasis of left lung Status: Acute Assessment and plan: Repeating chest x-ray today. Continuing IV Levaquin for presumed left lower lobe community-acquired pneumonia. 01/06/17: Repeat chest x-ray revealed mild left basilar pneumonia and right basilar atelectasis. Will continue IV antibiotic therapy for presumed left lower lobe community-acquired pneumonia along with O2 and pulmonary toilet. Current Visit: Yes (3) Diabetes mellitus Status: Chronic Assessment and plan: Blood sugars fairly well controlled. Will continue current medical regimen. 01/06/17: Blood sugars are well controlled. Continue current regimen. Current Visit: Yes Qualifiers: Diabetes mellitus type: type 2 Chronic kidney disease stage: on chronic dialysis (4) ESRD (end stage renal disease) on dialysis Status: Chronic Assessment and plan: Nephrology seen in assisting with dialysis. She is on a Friday schedule. Current Visit: No (5) Sacral decubitus ulcer, stage II Status: Chronic Assessment and plan: General surgery has assessed at this time and appears to be clean and likely not the source of her sepsis. Continuing antibiotics and local wound care. 01/06/17: Continuing local wound care. Appreciate general surgery input. Current Visit: Yes Hospitalist: Subjective Interval history: She is awake and alert and has no complaints today. She denies any chest pain, shortness breath, cough, nausea or vomiting. Exam - Constitutional Vitals: Period Temp Pulse Resp BP Sys/Jaimes Pulse Ox Last 24 Hr 97 F-101.0 F 94-115 16-19 97-123/56-74 98-100 General appearance: no acute distress - Head Head exam: Present: normocephalic, atraumatic - Eye Eye exam: Present: EOMI Pupils: Present: OXANA - ENT ENT exam: Present: normal oropharynx - Neck Neck exam: Absent: meningismus, tenderness - Respiratory Respiratory exam: Present: clear to auscultation bilaterally. Absent: rales, rhonchi, wheezes - Cardiovascular Cardiovascular exam: Present: regular rate and rhythm. Absent: tachycardia - GI/Abdominal GI/Abdominal exam: Present: normal bowel sounds, soft, other (PEG tube in place) . Absent: distended, mass, tenderness - Extremities Exam Extremities exam: Present: other (Right foot amputation with dressing intact, left [id number] amputation, multiple finger amputations bilaterally). Absent: calf tenderness, edema - Back Exam Back exam: Present: normal inspection - Neurological Exam Neurological exam: Present: alert, CN II-XII intact. Absent: motor sensory deficit - Psychiatric Psychiatric exam: Present: flat affect. Absent: agitated, anxious - Skin Skin exam: Present: warm, dry, other (3 x 5 cm sacral ulceration without evidence of fluctuance or erythema) Results - Labs CBC & BMP: 01/06/17 06:39 01/06/17 06:39 Lab Results: I have reviewed the past 24 hour labs - Diagnostic Findings Procedure: Chest x-ray: report reviewed by me Quality Measures - VTE Contraindication to Pharmacological VTE Prophylaxis: High Risk of Bleeding
[2017-01-06 07:48] LABS: Phosphorous 0.7 MG/DL (2.5-4.9); Prealbumin 3.6 MG/DL (20-40)
[2017-01-06 07:52] LABS: Hypochromasia 1+; Lymphocytes 4 % (20-55); Microcytosis 1+; Segmented Neutrophils 90 % (50-85); Total Cells Counted 100
[2017-01-06 07:53] LABS: Platelet Estimate Adequate
[2017-01-06] MEDS: traMADol 50 MG TABLET PO PRN ×2 (09:43→17:50)
[2017-01-06] MEDS: INSULIN REGULAR 100 UNIT/ML SUBCUT SCH ×4 (09:44→20:32)
[2017-01-06] MEDS: PANTOPRAZOLE 40 MG TABLET PO SCH (09:44)
[2017-01-06] MEDS: CALCIUM ACETATE 667 MG CAPSULE PO SCH ×3 (09:44→20:31)
[2017-01-06] MEDS: COLLAGENASE OINT 30 GM TUBE TOP SCH (09:51)
--- NOTE | 2017-01-06 12:08 | Nephrology Progress Note ---
Nephrology - PN: Subj Interval history: Ms. Leonard is seen in follow-up of her end-stage renal disease. She remains withdrawn but does answer questions. She tells me that she has been staying at home and plans to go back to her home when she is discharged. She has been afebrile for the past 24 hours. She continues to receive Levaquin. Exam (PN)-Nephrology - Vital Signs Vital signs: Period Temp Pulse Resp BP Sys/Jaimes Pulse Ox Last 24 Hr 96.8 F-101 F 94-111 16-19 97-115/56-71 98-100 - Lab 01/06/17 06:39 01/06/17 06:39 Most recent lab results Calcium 8.8 MG/DL (8.5-10.1) 01/06/17 06:39 Phosphorus 0.7 MG/DL (2.5-4.9) L 01/06/17 06:39 Magnesium 1.9 MG/DL (1.8-2.4) 01/06/17 06:39 Assessment and Plan (1) End stage renal disease Problem details: No acute indication for HD at this time. Status: Chronic Assessment and plan: Hemodialysis today Current Visit: No (2) Peripheral vascular disease due to secondary diabetes mellitus Problem details: S/p transmetatarsal amputation of the right forefoot. Also with new c/o of pain in the left lateral foot and lower leg. Status: Chronic Current Visit: No
[2017-01-06] MEDS: MEROPENEM 1,000 MG in SODIUM CHLORIDE 0.9% 100 ML IV SCH (18:16)
[2017-01-06] MEDS ORDERED: AMPICILLIN INJ 1,000 MG in SODIUM CHLORIDE 0.9% 100 ML IV SCH (19:30)
[2017-01-06] MEDS: INSULIN GLARGINE 100 UNIT/ML SUBCUT SCH (20:31)
[2017-01-07] MEDS: LEVOTHYROXINE 25 MCG TABLET PO SCH (06:26)
[2017-01-07 06:36] LABS: Basophils # 0.1 10*3/uL (0.0-0.2); Basophils % 0.3 % (0.0-0.8); Eosinophils # 0.2 10*3/uL (0.0-0.87); Eosinophils % 0.8 % (0.00-10.9); Hematocrit 28.9 VOL% (35.7-47.0); Hemoglobin 9.3 GM/DL (12.0-16.0); Immature Granulocytes % 0.7 %; Immature Granulocytes Absolute 0.16 #; Lymphocytes # 1.1 10*3/uL (1.4-4.0); Lymphocytes % 4.9 % (21.3-54.2); Mean Corpuscular HGB Conc 32.2 GM/DL (32-36); Mean Corpuscular Hemoglobin 27 PG (27-34); Mean Corpuscular Volume 85.3 FL (87-102); Mean Platelet Volume 11.2 FL (9.6-12.0); Monocytes # 1.9 10*3/uL (0.11-0.8); Monocytes % 8.2 % (1.7-12.7); Neutrophils # 19.5 10*3/uL (1.4-7.4); Neutrophils % 85.1 % (38.7-73.9); Platelet Count 272 T/CUMM (130-400); Red Blood Count 3.39 MC/CUMM (3.8-5.5); Red Cell Distribution Width 17.1 % (9.3-17.3); White Blood Count 22.9 T/CUMM (4-12)
[2017-01-07 07:05] LABS: Calcium 9.8 MG/DL (8.5-10.1); Osmolality,Calculated 270.9 MOS/KG (273-304); Potassium 3.9 MMOL/L (3.5-5.1)
[2017-01-07 07:10] LABS: Eosinophils 2 % (0-10); Lymphocytes 2 % (20-55); Polychromasia Slight; Segmented Neutrophils 90 % (50-85); Target Cells Slight; Total Cells Counted 100
[2017-01-07 07:11] LABS: Platelet Estimate Adequate
[2017-01-07] MEDS: INSULIN REGULAR 100 UNIT/ML SUBCUT SCH ×4 (08:20→21:00)
[2017-01-07] MEDS: PANTOPRAZOLE 40 MG VIAL IV SCH (08:37)
[2017-01-07] MEDS: SKIN HEALING OINT (AQUAPHOR) 50 GM TUBE TOP SCH (08:52)
[2017-01-07] MEDS: COLLAGENASE OINT 30 GM TUBE TOP SCH (08:52)
[2017-01-07] MEDS: CALCIUM ACETATE 667 MG CAPSULE PO SCH ×3 (08:53→18:17)
[2017-01-07] MEDS: SODIUM HYPOCHLORITE 0.25% IRRIG 473 ML BOTTLE TOP SCH (09:00)
--- NOTE | 2017-01-07 09:17 | General Surgery Consult Note ---
Assessment and Plan - Time spent with patient Time spent with patient: Less than 30 minutes (1) Decubitus ulcer of sacral region, unstageable Status: Acute Assessment and plan: 01/07/2017. Unstageable sacral decubitus ulcer. This has worsened since her previous admission, and could probably stand some cleanup. However, with the other areas needing more attention, and the fact that it is doubtful that this is the source of her leukocytosis, will plan to focus primarily on the other 2 areas at the time of surgery, only looking at debridement of the sacrum if time and resource allows. The sacral area should respond well to just local care with good cleaning and Santyl with selective debridement at wound center. Current Visit: Yes (2) Ischemia of foot Problem details: Worsening ischemic changes of the right transmetatarsal amputation stump. New ulcers and eschars of the left foot. Status: Chronic Assessment and plan: 01/07/2017. Ischemic changes of the right foot. This has worsened since her past exam, and she has known ischemic peripheral vascular disease. Dr. Junior has discussed AKA with this patient and with her family in the past, and we have offered this as a means of dealing with this contracted extremity. We will plan surgery for tomorrow to perform above-knee amputation. Of note she has HD catheters in the right thigh, and after discussing with Dr. Patel, we will plan to leave these since she has no known other dialysis access sites. Current Visit: No (3) Open wound of hand Status: Acute Assessment and plan: 01/07/2017. Open wound of left hand, status post debridement with partial amputation. These wounds are a bit dry and could use some clean up, so we will plan to debride these areas at the time of her right AKA tomorrow. Current Visit: No History of Present Illness Chief complaint: Fever; ischemic right foot; ischemic left hand History of present illness: Ms. Leonard is a 46 year old female Home Medications Medication Instructions Recorded Confirmed Type Insulin Glargine [Lantus] 15 units SUBCUT BEDTIME #1 syringe 12/04/16 01/04/17 Rx Calcium Acetate [Phoslo] 2,001 mg PO TID W/MEALS 12/13/16 01/04/17 History Acetaminophen Tab [Tylenol Tab] 650 mg PO Q6H PRN #0 tablet 12/19/16 01/04/17 Rx Bisacodyl Supp [Dulcolax Supp] 10 mg RECTAL DAILY PRN #0 supp 12/19/16 01/04/17 Rx Gentamicin Inj [Garamycin Inj] 137 mg IV Q72H 28 Days 12/19/16 01/04/17 Rx Glucagon 1 mg IM PRN PRN #0 vial 12/19/16 01/04/17 Rx Insulin Aspart [NovoLOG FlexPen] See Protocol SUBCUT ACHS #1 12/19/16 01/04/17 Rx applicator Pantoprazole Tab [Protonix Tab] 40 mg PO DAILY tablet 12/19/16 01/04/17 Rx Tramadol HCl [Tramadol Tab] 50 mg PO Q6H PRN #20 tablet 12/19/16 01/04/17 Rx Allergies Allergy/AdvReac Type Severity Reaction Status Date / Time No Known Allergies Allergy Verified 12/02/16 18:00 Medical,Surgical,& Family Hx - Medical History Cardio: History of: Cerebrovascular Disease (questionable TIA), CHF, Hypertension, HI No history of: CAD Psychological: History of: Anxiety Disorders, Depression Neurology: History of: Cerebrovascular Accident, TIA No history of: Seizures HEENT: History of: Eye Problem (Poor Vision) Endocrine: History of: Diabetes Mellitus (IDDM), Dyslipidemia Respiratory: History of: Obstructive Sleep Apnea Renal: History of: Dialysis ([facility], [facility], [facility]), Renal Failure Musculoskeletal: History of: Amputation (Right Foot; Left BKA; Right second, third, and fourth digit amputation), Musculoskeletal Problems (Arthritis) Hematology: History of: Anemia Reproductive: No history of: Complication Other: History of: Skin Problems (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) No history of: Anesthesia Reactions - Surgical History Cardiac Surgeries: Patient Denies: Cardiac Catheterization Neurologic Surgeries: Patient denies: Neurologic Surgery HEENT Surgeries: Patient denies: Eye Surgery, Tonsilectomy & Adenoidectomy Abdominal Surgeries: Surgical HX of: Appendectomy Patient denies: Abdominal Surgery Reproductive Surgeries: Surgical HX of;: Section, Gynecologic Surgery Patient denies;: Genitourinary Surgery Orthopedic Surgeries: Surgical HX of;: Implanted Devices (Right Subclavian Dilaysis Catheter), Orthopedic Surgery (Left BKA, Right Foot Amputation) - Family History Family History: Reports;: Family Cancer, Family Diabetes, Family Heart Disease, Family Hypertension Denies;: Family Anesthesia Reaction, Family Hematology, Family Psychiatric Problems, Family Stroke, Additional Family History - Social History Smoking Status: Never smoker Frequency of Alcohol Use: None Type of Drug Use: None Exam - Constitutional Vitals: Period Temp Pulse Resp BP Sys/Jaimes Pulse Ox Last 24 Hr 97.4 F-99.4 F 94-107 16-18 101-122/63-71 95-100 General appearance: cachectic, disheveled, other (She semi-awake, moaning, and will only respond verbally to pain, then she just cries.) - Neck Neck exam: Present: trachea midline. Absent: lymphadenopathy - Respiratory Respiratory exam: Absent: accessory muscle use, wheezes - Cardiovascular Cardiovascular exam: Present: RRR - GI/Abdominal GI/Abdominal exam: Present: hypoactive bowel sounds, other (PEG tube site is clean without redness, tenderness, or induration.). Absent: distended, guarding - Extremities Exam Extremities exam: Present: other (Ischemic changes of the right foot in the site of the old TMA. There are eschars present on the lateral aspect of the right foot. She withdraws to pain, and keeps the limb contracted. It is impossible to palpate pulses, although there are skin changes consistent with ischemic peripheral vascular disease. Previous left BKA) - Back Exam Back exam: Present: other (Large malodorous, unstageable sacral decubitus ulcer. Again, this is difficult to assess due to her discomfort and uncooperation. ) Quality Measures - VTE Contraindication to Pharmacological VTE Prophylaxis: High Risk of Bleeding Results - Labs CBC & BMP: 01/07/17 06:02 01/07/17 06:02 Lab Results: I have reviewed the past 24 hour labs (Labs noted)
--- NOTE | 2017-01-07 09:58 | Dialysis Note ---
Dialysis Note - Dialysis Note Ms. Leonard is seen during her hemodialysis. She is minimally interactive but is awake. Blood pressure stable. We discussed vascular access with the interview of her proposed above-knee amputation. If we can leave the dialysis catheter at its present site that would be ideal. Her choice for other access sites is extremely limited.
--- NOTE | 2017-01-07 11:27 | Hospitalist Progress Note ---
Assessment and Plan - Time spent with patient Time spent with patient: Greater than 30 minutes (1) Left lower lobe pneumonia Status: Acute Assessment and plan: Chest x-ray is not very remarkable. I doubt this is the cause of her 22,000 white blood cell count elevation. Consult infectious disease. Patient currently receiving ampicillin and Merrem. Current Visit: Yes (2) Functional quadriplegia Status: Chronic Current Visit: Yes (3) Sacral decubitus ulcer Status: Chronic Assessment and plan: Followed by Dr. Rice Current Visit: Yes Qualifiers: Pressure ulcer stage: stage 3 Qualified Code(s): L89.153 - Pressure ulcer of sacral region, stage 3 (4) Hyponatremia Status: Acute Current Visit: Yes (5) Peripheral vascular disease due to secondary diabetes mellitus Problem details: S/p transmetatarsal amputation of the right forefoot. Also with new c/o of pain in the left lateral foot and lower leg. Status: Chronic Current Visit: No (6) Poorly controlled type 1 diabetes mellitus Status: Chronic Current Visit: No (7) End stage renal disease Status: Chronic Current Visit: No (8) Anemia Status: Chronic Current Visit: No Qualifiers: Other causes of anemia: chronic disease, kidney (9) Ischemic necrosis of finger Status: Acute Current Visit: No (10) ESRD (end stage renal disease) on dialysis Status: Chronic Current Visit: No (11) Failure to thrive in adult Status: Chronic Current Visit: No (12) Sepsis Status: Acute Assessment and plan: Multifactorial and likely related to a combination of left lower lobe pneumonia and multiple skin ulcerations. Current Visit: No (13) Dry gangrene Status: Acute Assessment and plan: Involving the right lower extremity. Surgery considering right AKA. Current Visit: No Hospitalist: Subjective Interval history: Patient seen and examined. Chart reviewed. Case discussed with Dr. Rice at the bedside. Patient with multiple ulcerations including sacral wound, right lower extremity, left hand, and left stump. There is no evidence of acute abscess or fluctuance in the wounds. She has a very minimal finding of left lower lobe infiltration on her chest x-ray. I do not think this is the main focus of her leukocytosis. Surgery is considering a right AKA. She has a dialysis catheter in the right groin. I have consulted infectious disease for further evaluation and antibiotic recommendations for her sacral wound culture which was positive for enterococcus and ESBL E. coli. Exam - Constitutional Vitals: Period Temp Pulse Resp BP Sys/Jaimes Pulse Ox Last 24 Hr 97.4 F-99.4 F 87-107 16-20 101-136/63-71 95-100 Exam: Constitutional System: Moderate distress. No tremulousness. Frail and cachectic. Chronically ill-appearing. Appears older than stated age Head: Normocephalic, atraumatic. Ears, Nose and Throat System: No pain or tenderness. No epistaxis or discharge Eyes System: Pupils equal, round, and reactive. Extraocular muscles intact. Neck: Supple, without adenopathy, No jugular venous distention. Respiratory System: Chest with minimal rhonchi in the left base. Cardiovascular System: Heart with regular rate and rhythm. No murmur. GI System: Abdomen soft, nontender. Normo active bowel sounds present. PEG tube in place Musculoskeletal System: limbs with no pedal edema. Multiple ulcerations noted in the extremities including the left stump, the right lower extremity (the worst of all) with a dry eschar and skin sloughing. Sacral decubitus wound noted. Neurological System: Functional quadriplegic. Groans when turned. Minimally answers questions. Results - Labs CBC & BMP: 01/07/17 06:02 01/07/17 06:02 Lab Results: I have reviewed the past 24 hour labs - Diagnostic Findings Procedure: KUB x-ray: image reviewed by me, report reviewed by me (Left lower lobe infiltrate) Quality Measures - VTE Contraindication to Pharmacological VTE Prophylaxis: High Risk of Bleeding Contraindication to Mechanical VTE Prophylaxis: Ischemic Vascular Disease
[2017-01-07] MEDS: LEVOFLOXACIN INJ 250 MG in PREMIX 1 EACH IV SCH (14:30)
--- NOTE | 2017-01-07 17:10 | Infectious Disease Consult ---
Assessment and Plan (1) Decubitus ulcer of sacral region, unstageable Status: Acute Assessment and plan: Agree with empiric meropenem but I will also add vancomycin and stop the ampicillin and levofloxacin. We need to see what the blood cultures at outside hospital showed. I will repeat blood cultures here since she is still has significant leukocytosis. Overall prognosis is poor. I would try to look at her ulcers tomorrow and she is having dressing changes. Thank you very much for the consult. Will follow. Current Visit: Yes (2) Diabetes mellitus Status: Chronic Current Visit: Yes Qualifiers: Diabetes mellitus type: type 2 Chronic kidney disease stage: on chronic dialysis (3) Functional quadriplegia Status: Chronic Current Visit: Yes (4) Diabetes mellitus Status: Acute Current Visit: No (5) End stage renal disease on dialysis Status: Acute Current Visit: No History of Present Illness Chief complaint: Sepsis, decubitus ulcers History of present illness: History obtained from review of the records as the patient was nonverbal. Multiple comorbidities Ms. Leonard is a 46 year old female who is currently bedbound having had multiple amputations including most of her digits and the limb. She lives at home with her daughter but the daughter brought to the hospital because of fever and worsening appearance of her decubitus ulcers. She was found to have severe leukocytosis. Sacral wound cultures positive for 2 organisms, that is Enterococcus faecalis and ESBL E. coli. I am asked to advise on antibiotic therapy. Patient has not had blood cultures here but in looking at her records it seems blood cultures were taken at the outside hospital prior to transfer here. Home Medications Medication Instructions Recorded Confirmed Type Insulin Glargine [Lantus] 15 units SUBCUT BEDTIME #1 syringe 12/04/16 01/04/17 Rx Calcium Acetate [Phoslo] 2,001 mg PO TID W/MEALS 12/13/16 01/04/17 History Acetaminophen Tab [Tylenol Tab] 650 mg PO Q6H PRN #0 tablet 12/19/16 01/04/17 Rx Bisacodyl Supp [Dulcolax Supp] 10 mg RECTAL DAILY PRN #0 supp 12/19/16 01/04/17 Rx Gentamicin Inj [Garamycin Inj] 137 mg IV Q72H 28 Days 12/19/16 01/04/17 Rx Glucagon 1 mg IM PRN PRN #0 vial 12/19/16 01/04/17 Rx Insulin Aspart [NovoLOG FlexPen] See Protocol SUBCUT ACHS #1 12/19/16 01/04/17 Rx applicator Pantoprazole Tab [Protonix Tab] 40 mg PO DAILY tablet 12/19/16 01/04/17 Rx Tramadol HCl [Tramadol Tab] 50 mg PO Q6H PRN #20 tablet 12/19/16 01/04/17 Rx Allergies Allergy/AdvReac Type Severity Reaction Status Date / Time No Known Allergies Allergy Verified 12/02/16 18:00 ROS unobtainable: due to mental status Medical,Surgical,& Family Hx - Medical History Cardio: History of: Cerebrovascular Disease (questionable TIA), CHF, Hypertension, RI No history of: CAD Psychological: History of: Anxiety Disorders, Depression Neurology: History of: Cerebrovascular Accident, TIA No history of: Seizures HEENT: History of: Eye Problem (Poor Vision) Endocrine: History of: Diabetes Mellitus (IDDM), Dyslipidemia Respiratory: History of: Obstructive Sleep Apnea Renal: History of: Dialysis ([place], [place], [place]), Renal Failure Musculoskeletal: History of: Amputation (Right Foot; Left BKA; Right second, third, and fourth digit amputation), Musculoskeletal Problems (Arthritis) Hematology: History of: Anemia Reproductive: No history of: Complication Other: History of: Skin Problems (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) No history of: Anesthesia Reactions - Surgical History Cardiac Surgeries: Patient Denies: Cardiac Catheterization Neurologic Surgeries: Patient denies: Neurologic Surgery HEENT Surgeries: Patient denies: Eye Surgery, Tonsilectomy & Adenoidectomy Abdominal Surgeries: Surgical HX of: Appendectomy Patient denies: Abdominal Surgery Reproductive Surgeries: Surgical HX of;: Section, Gynecologic Surgery Patient denies;: Genitourinary Surgery Orthopedic Surgeries: Surgical HX of;: Implanted Devices (Right Subclavian Dilaysis Catheter), Orthopedic Surgery (Left BKA, Right Foot Amputation) - Family History Family History: Reports;: Family Cancer, Family Diabetes, Family Heart Disease, Family Hypertension Denies;: Family Anesthesia Reaction, Family Hematology, Family Psychiatric Problems, Family Stroke, Additional Family History - Social History Smoking Status: Never smoker Frequency of Alcohol Use: None Type of Drug Use: None Infectious Disease Exam H&P - Constitutional Vitals: Vital Signs Temp Pulse Resp BP Pulse Ox 98.9 F 110 H 16 131/73 93 L 01/07/17 16:00 01/07/17 16:00 01/07/17 16:00 01/07/17 16:00 01/07/17 16:00 Intake and Output 01/07/17 01/07/17 01/07/17 07:59 15:59 23:59 Intake Total 190 / 190 430 / 430 Output Total 500 / 500 Balance 190 / 190 -70 / -70 Intake: IV 100 / 100 Ampicillin Inj 1,000 mg 100 / 100 In Ns 100 ml @ 200 mls/hr IV Q24H [facility] Rx#: [id number] Oral 0 / 0 Tube Feeding Supplement Tube Feeding Flush 90 / 90 400 / 400 Output: Hemodialysis 500 / 500 Other: Tube Feeding 240 Voiding Method Brief Dialysis Patient # Voids 0 # Bowel Movements 0 Exam: General: Patient chronically ill looking, cachectic HEENT: Mucous membranes pink and moist, anicteric acyanotic, OXANA, no oral exudates Neck: Supple, no thyroid gland enlargement Respiratory system: Breath sounds vesicular, no crepitations or wheezes Cardiovascular: Normal S1 and S2, no murmurs appreciated Abdomen: Normal bowel sounds, soft nontender throughout, no organomegaly or mass Genitourinary: No suprapubic pain or bladder distention, hemodialysis catheter and right groin, her limbs are wasted, Extremities: no edema right foot and leg bandaged, healed left BKA stump, most of her fingers have been amputated Skin: No rash dressing to sacral decubitus ulcer Reports - Labs CBC & BMP: 01/07/17 06:02 01/07/17 06:02 Labs: Laboratory Results - last 24 hr 01/06/17 01/07/17 01/07/17 20:26 06:02 06:02 WBC 22.9 H RBC 3.39 L Hgb 9.3 L Hct 28.9 L MCV 85.3 L MCH 27 MCHC 32.2 RDW 17.1 Plt Count 272 MPV 11.2 Neut % (Auto) 85.1 H Lymph % (Auto) 4.9 L [place] % (Auto) 8.2 Eos % (Auto) 0.8 Baso % (Auto) 0.3 Neut # (Auto) 19.5 H Lymph # (Auto) 1.1 L [place] # (Auto) 1.9 H Eos # (Auto) 0.2 Baso # (Auto) 0.1 Total Counted 100 Immature Gran % 0.7 Nucleated RBC % 0.0 Immature Gran # 0.16 Segmented Neutrophils 90 H Lymphocytes 2 L Monocytes 6 Eosinophils 2 Nucleated RBCs # 0.00 Platelet Estimate Adequate Polychromasia Slight Target Cells Slight Sodium 129 L Potassium 3.9 Chloride 91 L Carbon Dioxide 25 Anion Gap 16.9 H BUN 50 H D Creatinine 3.90 H GFR Calculation 9 BUN/Creatinine Ratio 12.00 Glucose 102 POC Glucose 155 H Calculated Osmolality 270.9 L Calcium 9.8 01/07/17 01/07/17 07:25 11:17 WBC RBC Hgb Hct MCV MCH MCHC RDW Plt Count MPV Neut % (Auto) Lymph % (Auto) [place] % (Auto) Eos % (Auto) Baso % (Auto) Neut # (Auto) Lymph # (Auto) [place] # (Auto) Eos # (Auto) Baso # (Auto) Total Counted Immature Gran % Nucleated RBC % Immature Gran # Segmented Neutrophils Lymphocytes Monocytes Eosinophils Nucleated RBCs # Platelet Estimate Polychromasia Target Cells Sodium Potassium Chloride Carbon Dioxide Anion Gap BUN Creatinine GFR Calculation BUN/Creatinine Ratio Glucose POC Glucose 100 152 H Calculated Osmolality Calcium - Reports Microbiology: Microbiology 01/04/17 06:38 Wound Culture - Final Decubitus - Wound Enterococcus faecalis Escherichia coli ESBL - Diagnostic Findings Procedure: Chest x-ray: report reviewed by me (Gabriel chest x-ray without consolidation in my opinion this is done 05 January)
[2017-01-07] MEDS ORDERED: VANCOMYCIN INJ 500 MG in SODIUM CHLORIDE 0.9% 100 ML IV PRN (17:42)
[2017-01-07] MEDS: MEROPENEM 1,000 MG in SODIUM CHLORIDE 0.9% 100 ML IV SCH (18:10)
[2017-01-07] MEDS ORDERED: VANCOMYCIN INJ 500 MG in SODIUM CHLORIDE 0.9% 100 ML IV ONE (20:00)
[2017-01-07] MEDS ORDERED: VANCOMYCIN INJ 750 MG in SODIUM CHLORIDE 0.9% 250 ML IV ONE (20:00)
[2017-01-07] MEDS: INSULIN GLARGINE 100 UNIT/ML SUBCUT SCH (21:08)
[2017-01-08 05:18] LABS: Basophils # 0.1 10*3/uL (0.0-0.2); Basophils % 0.3 % (0.0-0.8); Eosinophils # 0.1 10*3/uL (0.0-0.87); Eosinophils % 0.5 % (0.00-10.9); Hematocrit 27.2 VOL% (35.7-47.0); Hemoglobin 8.6 GM/DL (12.0-16.0); Immature Granulocytes % 0.9 %; Immature Granulocytes Absolute 0.19 #; Lymphocytes # 0.8 10*3/uL (1.4-4.0); Lymphocytes % 3.7 % (21.3-54.2); Mean Corpuscular HGB Conc 31.6 GM/DL (32-36); Mean Corpuscular Hemoglobin 27 PG (27-34); Mean Corpuscular Volume 85.8 FL (87-102); Mean Platelet Volume 10.5 FL (9.6-12.0); Monocytes # 2.3 10*3/uL (0.11-0.8); Monocytes % 10.3 % (1.7-12.7); Neutrophils # 18.5 10*3/uL (1.4-7.4); Neutrophils % 84.3 % (38.7-73.9); Platelet Count 279 T/CUMM (130-400); Red Blood Count 3.17 MC/CUMM (3.8-5.5); Red Cell Distribution Width 17.1 % (9.3-17.3); White Blood Count 21.9 T/CUMM (4-12)
[2017-01-08 05:40] LABS: Eosinophils 1 % (0-10); Hypochromasia 1+; Lymphocytes 2 % (20-55); Ovalocytes Slight; Platelet Estimate Adequate; Segmented Neutrophils 87 % (50-85); Total Cells Counted 100
[2017-01-08 05:41] LABS: Microcytosis Slight
[2017-01-08 05:52] LABS: Alanine Aminotransferase < 6 U/L (13-56); Albumin 1.4 G/DL (3.4-5.0); Alkaline Phosphatase 212 U/L (45-117); Aspartate Amino Transferase 17 U/L (0-37); Calcium 10.1 MG/DL (8.5-10.1); Total Protein 6.1 G/DL (6.4-8.3)
[2017-01-08 05:53] LABS: Blood Urea Nitrogen 48 MG/DL (7-18); Osmolality,Calculated 268.8 MOS/KG (273-304); Potassium 3.7 MMOL/L (3.5-5.1); Sodium 130 MMOL/L (136-145)
[2017-01-08 05:54] LABS: Calcium 10.2 MG/DL (8.5-10.1); Magnesium 2.4 MG/DL (1.8-2.4); Osmolality,Calculated 268.8 MOS/KG (273-304); Potassium 3.6 MMOL/L (3.5-5.1)
[2017-01-08 05:57] LABS: Glucose 34 MG/DL (74-106)
--- NOTE | 2017-01-08 08:47 | Event Note ---
I will turn her care over to Dr. Hernandez.
[2017-01-08] MEDS: INSULIN REGULAR 100 UNIT/ML SUBCUT SCH ×4 (09:36→20:46)
[2017-01-08] MEDS: PANTOPRAZOLE 40 MG VIAL IV SCH (09:37)
--- NOTE | 2017-01-08 09:56 | Hospitalist Progress Note ---
Assessment and Plan (1) Left lower lobe pneumonia Status: Acute Assessment and plan: Chest x-ray is not very remarkable. I doubt this is the cause of her 22,000 white blood cell count elevation. Consult infectious disease. Patient currently receiving vancomycin and Merrem. Current Visit: Yes (2) Functional quadriplegia Status: Chronic Current Visit: Yes (3) Sacral decubitus ulcer Status: Chronic Assessment and plan: Followed by Dr. Rice. Continue vancomycin and Merrem. Infectious disease following. Current Visit: Yes Qualifiers: Pressure ulcer stage: stage 3 Qualified Code(s): L89.153 - Pressure ulcer of sacral region, stage 3 (4) Hyponatremia Status: Acute Current Visit: Yes (5) Peripheral vascular disease due to secondary diabetes mellitus Problem details: S/p transmetatarsal amputation of the right forefoot. Also with new c/o of pain in the left lateral foot and lower leg. Status: Chronic Current Visit: No (6) Poorly controlled type 1 diabetes mellitus Status: Chronic Current Visit: No (7) End stage renal disease Status: Chronic Current Visit: No (8) Anemia Status: Chronic Current Visit: No Qualifiers: Other causes of anemia: chronic disease, kidney (9) Ischemic necrosis of finger Status: Acute Current Visit: No (10) ESRD (end stage renal disease) on dialysis Status: Chronic Current Visit: No (11) Failure to thrive in adult Status: Chronic Current Visit: No (12) Sepsis Status: Acute Assessment and plan: Multifactorial and likely related to a combination of left lower lobe pneumonia and multiple skin ulcerations. Continue vancomycin and Merrem. Current Visit: No (13) Dry gangrene Status: Acute Assessment and plan: Involving the right lower extremity. Surgery scheduled for right AKA. Current Visit: No Hospitalist: Subjective Interval history: Patient seen and examined. No acute events overnight. Case discussed with nursing staff. Labs reviewed. Plan for a right above-knee amputation today. She had an episode of hypoglycemia this morning and was treated with D50. Exam - Constitutional Vitals: Period Temp Pulse Resp BP Sys/Jaimes Pulse Ox Last 24 Hr 97.3 F-100.7 F 54-110 16-20 83-131/50-75 93-99 Exam: Constitutional System: Moderate distress. No tremulousness. Frail and cachectic. Chronically ill-appearing. Appears older than stated age Head: Normocephalic, atraumatic. Ears, Nose and Throat System: No pain or tenderness. No epistaxis or discharge Eyes System: Pupils equal, round, and reactive. Extraocular muscles intact. Neck: Supple, without adenopathy, No jugular venous distention. Respiratory System: Chest with minimal rhonchi in the left base. Cardiovascular System: Heart with regular rate and rhythm. No murmur. GI System: Abdomen soft, nontender. Normo active bowel sounds present. PEG tube in place Musculoskeletal System: limbs with no pedal edema. Multiple ulcerations noted in the extremities including the left stump, the right lower extremity (the worst of all) with a dry eschar and skin sloughing. Sacral decubitus wound noted. Bilateral finger amputations noted with wounds that have been debrided. Neurological System: Functional quadriplegic. Groans when turned. Minimally answers questions. Results - Labs CBC & BMP: 01/08/17 04:52 01/08/17 04:52 Lab Results: I have reviewed the past 24 hour labs Quality Measures - VTE Contraindication to Pharmacological VTE Prophylaxis: High Risk of Bleeding Contraindication to Mechanical VTE Prophylaxis: Ischemic Vascular Disease
[2017-01-08] MEDS: COLLAGENASE OINT 30 GM TUBE TOP SCH (11:02)
[2017-01-08] MEDS: SKIN HEALING OINT (AQUAPHOR) 50 GM TUBE TOP SCH (11:02)
[2017-01-08] MEDS: SODIUM HYPOCHLORITE 0.25% IRRIG 473 ML BOTTLE TOP SCH (11:02)
[2017-01-08] MEDS: DEXTROSE 50% 25 GM/50 ML VIAL IV PRN ×2 (11:21→14:15)
[2017-01-08] MEDS: SODIUM CHLORIDE 0.9% 250 ML IV SCH (12:14)
[2017-01-08] MEDS ORDERED: BUPIVACAINE 0.25% 50 ML VIAL ONE (12:32)
[2017-01-08] MEDS ORDERED: ETOMIDATE 20 MG/10 ML VIAL IV ONE (12:40)
[2017-01-08] MEDS ORDERED: PHENYLEPHRINE 1 MG/10 ML SYRINGE IV ONE (12:40)
[2017-01-08] MEDS: CALCIUM ACETATE 667 MG CAPSULE PO SCH ×3 (14:01→18:01)
[2017-01-08] MEDS ORDERED: SODIUM CHLORIDE 0.9% 100 ML IV ONE (14:11)
[2017-01-08] MEDS ORDERED: MIDAZOLAM 2 MG/2 ML VIAL ONE (14:11)
[2017-01-08] MEDS ORDERED: SEVOFLURANE 1 UNIT/15 MINUTE INH ONE (14:11)
[2017-01-08] MEDS ORDERED: fentaNYL 100 MCG/2 ML VIAL ONE (14:11)
--- NOTE | 2017-01-08 15:05 | Anesthesia Post-Op ---
Anesthesia Post OP - Post Ansesthetic Evaluation Patient seen in post op: Yes Resp: within normal limits CV: within normal limits Mental: within normal limits Temp: within normal limits [id number]: within normal limits Nausea and Vomiting: within normal limits Pain: within normal limits
[2017-01-08] MEDS: LEVOTHYROXINE 25 MCG TABLET PO SCH (15:21)
--- NOTE | 2017-01-08 15:48 | Nephrology Progress Note ---
Nephrology - PN: Subj Interval history: Ms. Leonard is seen in follow-up of her end-stage renal disease. She underwent right above-knee amputation today. She is calm and breathing easily. We will plan to dialyze tomorrow. Exam (PN)-Nephrology - Vital Signs Vital signs: Period Temp Pulse Resp BP Sys/Jaimes Pulse Ox Last 24 Hr 97.0 F-100.7 F 54-110 16-20 83-131/50-74 93-100 - Lab 01/08/17 04:52 01/08/17 04:52 Most recent lab results Calcium 10.1 MG/DL (8.5-10.1) 01/08/17 04:52 Phosphorus 0.7 MG/DL (2.5-4.9) L 01/06/17 06:39 Magnesium 2.4 MG/DL (1.8-2.4) 01/08/17 04:52 Assessment and Plan (1) End stage renal disease Status: Chronic Assessment and plan: Hemodialysis today Current Visit: No (2) Peripheral vascular disease due to secondary diabetes mellitus Problem details: S/p transmetatarsal amputation of the right forefoot. Also with new c/o of pain in the left lateral foot and lower leg. Status: Chronic Current Visit: No
--- NOTE | 2017-01-08 17:18 | Operative Note ---
Date of procedure: 01/08/17 Pre-op diagnosis: Ischemic right lower ankle and leg with possible sepsis Post-op diagnosis: same Procedure: Operative note: Preoperative diagnosis:1 1. Progressive ischemic changes of the right ankle and foot and lower leg with questionable septic changes present. 2. Open wound of the left hand with some necrotic tissue present. Postop diagnosis same Procedure: 1. Right AKA had a amputation 2. Debridement of wound of the left hand. Surgeon Dr. Rice Janitorial Services Supervisor Iona Lance, [employer] ACNP Anesthesia was general with local Brief history: This is a sad case of a 46-year-old female with severe diabetes with chronic renal failure dialysis patient at this time. Her diabetes has affected her distal extremities and has caused her to lose fingers as well as the left lower extremity because of progressive ischemic changes present. She had recently undergone some amputation of the left fourth and fifth fingers but that wound has not completely healed with some ischemic changes about the incision. No gross infection from the side that we can determine at this point. She came back in because of a possibility of sepsis with elevated white count some fever. No clear source could be identified at this time. Unfortunately on further examination she had a progressive ischemic ulceration on the lateral aspect of the right ankle with foul odor present in this area. It was clear that this area could not be saved anymore and that she needed have an amputation to get this area under control. I was concerned that this was a source of the sepsis at this time. Patient has dialysis catheter is in the right groin and we were requested by renal not to disturb them to try to preserve him as much as possible. Procedure: With patient in supine position prepped and draped in sterile fashion timeout and antibiotics completed we approach this area of the right lower extremity. I attempted to stay as low on this extremity as I could creating a [place] type of incision with anterior and posterior flaps on the distal thigh area. We went to the skin subcutaneous tissue through the fascia of these flaps. Once we had gotten through these areas was able go through the muscles using electrocauterization and some ties of 3-0 Vicryl in order to control any bleeding. We were able to eventually identify the nerve and put down sharply timeout with a 3-0 Vicryl tie and divided sharply and allowed to retract. We did provide the artery and veins we isolated those between hemostats and divided the ileum and then tied the vessels with 2-0 Ethibond and a suture ligature of 2-0 Ethibond. With those secured in the bone exposed we used a periosteal elevator to elevate the femur 2 inches from the skin incision and then went across it with a oscillating saw tapering the upper edge of it. Once the lower extremity was cut through we removed it completely washed it with saline solution. We oversewed several bleeders as well as use little electrocauterization controlling her bleeding. With that completed we laid a [place] drain in and brought the flaps together suture in the muscle with interrupted 3-0 Vicryl suture in the fascia with interrupted 3-0 Vicryl suture. We then closed the skin with vertical mattresses of 3-0 nylon and skin clips. Bulky dressing was then applied to this area. With that completed then we approach this area of the left hand I went ahead and removed the old sutures that were present in this area and debrided the skin edges on the lateral part of the hand itself and then begin to debride necrotic fatty tissue tendon and some muscle out of the base of this wound bed. Did take some deep tissue for culture at this time and debrided a little bit up onto the third finger to try to see if we can still preserve this area. Clean this up as best we could not to expose any tendons of the finger. Once I had a cleaned up as well as I thought I could get it I did approximate the lateral part with vertical mattresses of 3-0 nylon just to see if this would improve the healing at this time. With that completed dressings were then applied. Patient was then taken recovery room. Estimated blood loss 10-15 cc Sponge count correct 2 Drains one Og Complications none Condition stable satisfactory Anesthesia: ARINA Surgeon / Physician: Freddy Rice Janitorial Services Supervisor: Iona Lacne Estimated blood loss: other (30 cc) Specimens: other (Amputated right leg and tissue from the left hand for cultures ) Condition: stable Disposition: floor Results - Labs CBC & BMP: 01/08/17 04:52 01/08/17 04:52 Discharge Plan - Discharge Medications No Action Insulin Glargine [Lantus] 15 units SUBCUT BEDTIME #1 syringe Bisacodyl Supp [Dulcolax Supp] 10 mg RECTAL DAILY PRN #0 supp PRN Reason: Constipation Gentamicin Inj [Garamycin Inj] 137 mg IV Q72H 28 Days Glucagon 1 mg IM PRN PRN #0 vial PRN Reason: Hypoglycemia w/o IV access Insulin Aspart [NovoLOG FlexPen] See Protocol SUBCUT ACHS #1 applicator Tramadol HCl [Tramadol Tab] 50 mg PO Q6H PRN #20 tablet PRN Reason: Pain Calcium Acetate [Phoslo] 2,001 mg PO TID W/MEALS Acetaminophen Tab [Tylenol Tab] 650 mg PO Q6H PRN #0 tablet PRN Reason: Pain Mild (1-3) Pantoprazole Tab [Protonix Tab] 40 mg PO DAILY tablet - Follow Up or Referral - Forms/Instructions
[2017-01-08] MEDS: MORPHINE 2 MG/1 ML SYRINGE IV PRN (17:24)
[2017-01-08] MEDS: MEROPENEM 1,000 MG in SODIUM CHLORIDE 0.9% 100 ML IV SCH (18:14)
[2017-01-08 20:21] LABS: Hematocrit 25.6 VOL% (35.7-47.0); Hemoglobin 7.9 GM/DL (12.0-16.0)
[2017-01-08] MEDS: ceFAZolin 2,000 MG in PREMIX 1 EACH IV SCH (20:42)
[2017-01-08] MEDS: INSULIN GLARGINE 100 UNIT/ML SUBCUT SCH (20:46)
[2017-01-09] MEDS: MORPHINE 2 MG/1 ML SYRINGE IV PRN ×2 (02:26→23:59)
[2017-01-09] MEDS: ceFAZolin 2,000 MG in PREMIX 1 EACH IV SCH (04:33)
[2017-01-09 05:19] LABS: Basophils # 0.1 10*3/uL (0.0-0.2); Basophils % 0.3 % (0.0-0.8); Eosinophils # 0.2 10*3/uL (0.0-0.87); Eosinophils % 0.7 % (0.00-10.9); Hematocrit 26.3 VOL% (35.7-47.0); Hemoglobin 8.5 GM/DL (12.0-16.0); Immature Granulocytes Absolute 0.56 #; Lymphocytes # 1.1 10*3/uL (1.4-4.0); Lymphocytes % 3.8 % (21.3-54.2); Mean Corpuscular HGB Conc 32.3 GM/DL (32-36); Mean Corpuscular Hemoglobin 28 PG (27-34); Mean Corpuscular Volume 85.4 FL (87-102); Mean Platelet Volume 11.3 FL (9.6-12.0); Monocytes # 3.1 10*3/uL (0.11-0.8); Monocytes % 10.7 % (1.7-12.7); NRBC # 0.02 10*3/uL; Neutrophils # 23.6 10*3/uL (1.4-7.4); Neutrophils % 82.5 % (38.7-73.9); Platelet Count 317 T/CUMM (130-400); Red Blood Count 3.08 MC/CUMM (3.8-5.5); Red Cell Distribution Width 17.1 % (9.3-17.3); White Blood Count 28.6 T/CUMM (4-12)
[2017-01-09 05:44] LABS: Band Neutrophils 1 % (0-10); Hypochromasia 1+; Lymphocytes 2 % (20-55); Microcytosis 1+; Segmented Neutrophils 91 % (50-85); Total Cells Counted 100
[2017-01-09 05:46] LABS: Magnesium 2.6 MG/DL (1.8-2.4); Phosphorous 0.6 MG/DL (2.5-4.9); Platelet Estimate Normal; Prealbumin 4.5 MG/DL (20-40)
[2017-01-09 05:47] LABS: Alanine Aminotransferase < 6 U/L (13-56); Albumin 1.3 G/DL (3.4-5.0); Alkaline Phosphatase 226 U/L (45-117); Aspartate Amino Transferase 25 U/L (0-37); Blood Urea Nitrogen 69 MG/DL (7-18); Calcium 10.7 MG/DL (8.5-10.1); Glucose 145 MG/DL (74-106); Osmolality,Calculated 282.8 MOS/KG (273-304); Potassium 3.8 MMOL/L (3.5-5.1); Sodium 130 MMOL/L (136-145)
[2017-01-09] MEDS: LEVOTHYROXINE 25 MCG TABLET PO SCH (06:01)
[2017-01-09] MEDS: PANTOPRAZOLE 40 MG VIAL IV SCH (08:15)
[2017-01-09] MEDS: CALCIUM ACETATE 667 MG CAPSULE PO SCH ×2 (08:18→12:01)
[2017-01-09] MEDS: COLLAGENASE OINT 30 GM TUBE TOP SCH (08:23)
[2017-01-09] MEDS: SKIN HEALING OINT (AQUAPHOR) 50 GM TUBE TOP SCH (08:23)
[2017-01-09] MEDS: SODIUM HYPOCHLORITE 0.25% IRRIG 473 ML BOTTLE TOP SCH (08:24)
[2017-01-09] MEDS: SODIUM CHLORIDE 0.9% 250 ML IV SCH ×3 (08:25→18:11)
[2017-01-09] MEDS: INSULIN REGULAR 100 UNIT/ML SUBCUT SCH ×4 (08:26→21:25)
--- NOTE | 2017-01-09 08:47 | General Surgery Progress Note ---
Assessment and Plan (1) Above knee amputation of right lower extremity Status: Acute Assessment and plan: Status post right AKA dressing is dry moderate pain. Hand wound is clean and care is beginning there. Patient appears to be stable postop Current Visit: Yes Subjective Patient reports: Present: no new complaints, afebrile Exam - Constitutional Vitals: Period Temp Pulse Resp BP Sys/Jaimes Pulse Ox Last 24 Hr 97.0 F-99.2 F 81-101 16-20 86-122/46-74 95-100 General appearance: mild distress - Head Head exam: Present: normal inspection - ENT ENT exam: Present: normal exam - Neck Neck exam: Present: normal inspection - Respiratory Respiratory exam: Present: rales, rhonchi - Cardiovascular Cardiovascular exam: Present: RRR - GI/Abdominal GI/Abdominal exam: Present: hypoactive bowel sounds, soft - Extremities Exam Extremities exam: Present: other (Dressings intact over the right AKA with no unusual drainage or soiling of the dressing. Hand wound is clean and starting wound care there.) - Back Exam Back exam: Present: normal inspection - Neurological Exam Neurological exam: Present: alert, oriented X3, CN II-XII intact - Skin Skin exam: Present: normal color, warm, dry Results - Labs CBC & BMP: 01/09/17 04:34 01/09/17 04:34 Lab Results: I have reviewed the past 24 hour labs Quality Measures - VTE Contraindication to Mechanical VTE Prophylaxis: Ischemic Vascular Disease
--- NOTE | 2017-01-09 11:26 | Pathology Report from [facility] ---
[facility] ACCESSION # : [id number] PATIENT NAME : Eulogio Mason ORDERING DR : SAMMIE KIRBY III, MD CLINICAL HX: ESRD; PVD POST-OP DX: Same SPECIMEN INFO: Right above knee amputation GROSS DESCRIPTION: Received fresh labeled with the patients name EULOGIO MASON and consists of a 29.3 cm right leg above the knee amputation. A portion of the leg shows gangrenous changes noted involving the remaining portion of the foot. Atherosclerotic changes are identified. Sections submitted: A gangrenous skin, B artery following decalcification. DIAGNOSIS FOR EULOGIO MASON: RIGHT LEG, ABOVE-KNEE AMPUTATION: Wet gangrene. Marked calcified atheromatous occlusive disease. COLLECTED DATE: 01/08/2017 [facility] [place] REPORT DATE: 01/09/2017 ELECTRONICALLY SIGNED BY: Augustus Hernandez M.D. 01/09/2017 - 9:29:44 [facility]
--- NOTE | 2017-01-09 11:33 | Hospitalist Progress Note ---
Assessment and Plan (1) Peripheral vascular disease due to secondary diabetes mellitus Problem details: S/p transmetatarsal amputation of the right forefoot. Also with new c/o of pain in the left lateral foot and lower leg. Status: Chronic Current Visit: No (2) Poorly controlled type 1 diabetes mellitus Status: Chronic Current Visit: No (3) ESRD (end stage renal disease) on dialysis Status: Chronic Current Visit: No (4) Left lower lobe pneumonia Status: Acute Current Visit: Yes (5) Functional quadriplegia Status: Chronic Current Visit: Yes (6) Sacral decubitus ulcer Status: Chronic Current Visit: Yes Qualifiers: Pressure ulcer stage: stage 3 Qualified Code(s): L89.153 - Pressure ulcer of sacral region, stage 3 (7) Hyponatremia Status: Acute Current Visit: Yes (8) Above knee amputation of right lower extremity Status: Acute Assessment and plan: Our plan for this patient today is to continue with vancomycin and the Merrem. Ultimately patient will be transferred to [facility] for completion of her antibiotics. White count has gone up to 28.6. Will repeat labs tomorrow. Continue with hemodialysis as directed by nephrology. Current Visit: Yes Hospitalist: Subjective Interval history: Patient says her wound site is causing her discomfort otherwise patient is stable and was seen during dialysis Exam - Constitutional Vitals: Period Temp Pulse Resp BP Sys/Jaimes Pulse Ox Last 24 Hr 97.6 F-99.2 F 81-101 16-20 86-122/46-74 95-100 General appearance: mild distress - Head Head exam: Present: normal inspection - Eye Pupils: Present: OXANA - ENT ENT exam: Present: normal exam - Neck Neck exam: Present: normal inspection - Respiratory Respiratory exam: Present: clear to auscultation bilaterally - Cardiovascular Cardiovascular exam: Present: regular rate and rhythm - GI/Abdominal GI/Abdominal exam: Present: normal bowel sounds - Extremities Exam Extremities exam: Present: other (Dressing is intact over right AKA) - Back Exam Back exam: Present: normal inspection - Neurological Exam Neurological exam: Present: alert, oriented X3 - Psychiatric Psychiatric exam: Present: normal affect - Skin Skin exam: Present: normal color Results - Labs CBC & BMP: 01/09/17 04:34 01/09/17 04:34 Quality Measures - VTE Contraindication to Mechanical VTE Prophylaxis: Ischemic Vascular Disease
--- NOTE | 2017-01-09 11:36 | Dialysis Note ---
Dialysis Note - Dialysis Note Ms. Leonard is seen during her hemodialysis. She is doing well with her dialysis today. She is awake and says she is not having any pain from yesterday's [place] amputation on the right.
--- NOTE | 2017-01-09 16:55 | Infectious Disease Progress ---
Assessment and Plan (1) Decubitus ulcer of sacral region, unstageable Status: Acute Assessment and plan: Continue meropenem and vancomycin. Will examine also tomorrow morning a dressing change. Follow-up cultures and adjust antibiotics accordingly. Current Visit: Yes (2) Diabetes mellitus Status: Chronic Current Visit: Yes Qualifiers: Diabetes mellitus type: type 2 Chronic kidney disease stage: on chronic dialysis (3) Functional quadriplegia Status: Chronic Current Visit: Yes (4) Diabetes mellitus Status: Acute Current Visit: No (5) End stage renal disease on dialysis Status: Acute Current Visit: No Infectious Disease - PN: Subj Interval history: Patient doing poorly, I think she has dementia and she is not able to give any history. She has been afebrile. She had right AKA yesterday. I am told she still has a wound to left hand which looks infected. Large sacral ulcer also present but dressing was already done when I came back today. Infectious Disease Exam (PN) - Constitutional Vitals: Temp Pulse Resp BP Pulse Ox 97.6 F 87 16 96/50 97 01/09/17 15:58 01/09/17 15:58 01/09/17 15:58 01/09/17 15:58 01/09/17 15:58 General appearance: mild distress Exam: General appearance: Extremely cachectic and chronically ill-appearing - Eye Eye exam: Present: EOMI. no icterus Pupils: Present: OXANA - ENT ENT exam: no oral exudates - Respiratory Respiratory exam: vesicular BS, no crepitations or wheezes - Cardiovascular Cardiovascular exam: regular rate and rhythm, no murmurs - GI/Abdominal GI/Abdominal exam: normal bowel sounds, soft, non-tender, no organomegaly or mass - Extremities Exam Extremities exam: Right K AKA stump bandage, left hand bandaged - Skin Skin exam: no rash Results - Labs CBC & BMP: 01/09/17 04:34 01/09/17 04:34 Lab Results: I have reviewed the past 24 hour labs (Blood cultures negative to date) Quality Measures - VTE Contraindication to Mechanical VTE Prophylaxis: Ischemic Vascular Disease
[2017-01-09] MEDS: MEROPENEM 1,000 MG in SODIUM CHLORIDE 0.9% 100 ML IV SCH (17:55)
[2017-01-09] MEDS ORDERED: VANCOMYCIN INJ 500 MG in SODIUM CHLORIDE 0.9% 100 ML IV ONE (21:00)
[2017-01-09] MEDS: INSULIN GLARGINE 100 UNIT/ML SUBCUT SCH (21:24)
[2017-01-10] MEDS ORDERED: SODIUM CHLORIDE 0.9% 250 ML IV ONE (05:00)
[2017-01-10] MEDS: SODIUM CHLORIDE 0.9% 250 ML IV SCH ×2 (05:22→15:54)
[2017-01-10] MEDS: LEVOTHYROXINE 25 MCG TABLET PO SCH (05:59)
[2017-01-10 07:43] LABS: Calcium 8.8 MG/DL (8.5-10.1); Osmolality,Calculated 269.4 MOS/KG (273-304); Potassium 3.8 MMOL/L (3.5-5.1)
[2017-01-10 08:00] LABS: Basophils # 0.1 10*3/uL (0.0-0.2); Basophils % 0.3 % (0.0-0.8); Eosinophils # 0.3 10*3/uL (0.0-0.87); Eosinophils % 1.3 % (0.00-10.9); Hematocrit 26.9 VOL% (35.7-47.0); Hemoglobin 8.8 GM/DL (12.0-16.0); Immature Granulocytes % 1.3 %; Immature Granulocytes Absolute 0.32 #; Lymphocytes # 1.1 10*3/uL (1.4-4.0); Lymphocytes % 4.5 % (21.3-54.2); Mean Corpuscular HGB Conc 32.7 GM/DL (32-36); Mean Corpuscular Hemoglobin 28 PG (27-34); Mean Corpuscular Volume 85.1 FL (87-102); Mean Platelet Volume 10.5 FL (9.6-12.0); Monocytes # 2.8 10*3/uL (0.11-0.8); Monocytes % 11.1 % (1.7-12.7); Neutrophils # 20.8 10*3/uL (1.4-7.4); Neutrophils % 81.5 % (38.7-73.9); Platelet Count 411 T/CUMM (130-400); Red Blood Count 3.16 MC/CUMM (3.8-5.5); Red Cell Distribution Width 17.6 % (9.3-17.3); White Blood Count 25.4 T/CUMM (4-12)
[2017-01-10] MEDS: SODIUM HYPOCHLORITE 0.25% IRRIG 473 ML BOTTLE TOP SCH (08:10)
[2017-01-10] MEDS: INSULIN REGULAR 100 UNIT/ML SUBCUT SCH ×4 (08:13→22:48)
--- NOTE | 2017-01-10 08:21 | Nephrology Progress Note ---
Nephrology - PN: Subj Interval history: Ms. Leonard is seen in follow-up of her end-stage renal disease. She will be dialyzed today. She is now 2 days status post above-knee amputation on the right. Wound is dry. She remains minimally interactive but is arousable. She does not complain of pain this morning. [place] overall is poor, she has done poorly for some time. Exam (PN)-Nephrology - Vital Signs Vital signs: Period Temp Pulse Resp BP Sys/Jaimes Pulse Ox Last 24 Hr 97.6 F-98.6 F 80-90 16-20 81-101/47-58 97-100 - Lab 01/10/17 07:31 01/10/17 07:05 Most recent lab results Calcium 8.8 MG/DL (8.5-10.1) 01/10/17 07:05 Phosphorus 0.6 MG/DL (2.5-4.9) L 01/10/17 07:05 Magnesium 2.6 MG/DL (1.8-2.4) H 01/09/17 04:34 Assessment and Plan (1) End stage renal disease Status: Chronic Assessment and plan: Hemodialysis today Current Visit: No (2) Peripheral vascular disease due to secondary diabetes mellitus Problem details: S/p transmetatarsal amputation of the right forefoot. Also with new c/o of pain in the left lateral foot and lower leg. Status: Chronic Current Visit: No
[2017-01-10 08:22] LABS: Eosinophils 1 % (0-10); Hypochromasia 1+; Lymphocytes 2 % (20-55); Segmented Neutrophils 91 % (50-85); Total Cells Counted 100
[2017-01-10 08:23] LABS: Microcytosis 1+; Polychromasia Slight
[2017-01-10] MEDS: DEXTROSE 50% 25 GM/50 ML VIAL IV PRN (08:31)
[2017-01-10] MEDS: PANTOPRAZOLE 40 MG VIAL IV SCH (08:37)
[2017-01-10] MEDS: SKIN HEALING OINT (AQUAPHOR) 50 GM TUBE TOP SCH (08:42)
[2017-01-10] MEDS: COLLAGENASE OINT 30 GM TUBE TOP SCH (08:43)
--- NOTE | 2017-01-10 09:10 | General Surgery Progress Note ---
Assessment and Plan (1) Decubitus ulcer of sacral region, unstageable Status: Acute Assessment and plan: 01/07/2017. Unstageable sacral decubitus ulcer. This has worsened since her previous admission, and could probably stand some cleanup. However, with the other areas needing more attention, and the fact that it is doubtful that this is the source of her leukocytosis, will plan to focus primarily on the other 2 areas at the time of surgery, only looking at debridement of the sacrum if time and resource allows. The sacral area should respond well to just local care with good cleaning and Santyl with selective debridement at wound center. Current Visit: Yes (2) Ischemia of foot Problem details: Worsening ischemic changes of the right transmetatarsal amputation stump. New ulcers and eschars of the left foot. Status: Chronic Assessment and plan: 01/07/2017. Ischemic changes of the right foot. This has worsened since her past exam, and she has known ischemic peripheral vascular disease. Dr. Junior has discussed AKA with this patient and with her family in the past, and we have offered this as a means of dealing with this contracted extremity. We will plan surgery for tomorrow to perform above-knee amputation. Of note she has HD catheters in the right thigh, and after discussing with Dr. Patel, we will plan to leave these since she has no known other dialysis access sites. 01/10/2017. Patient is 2 days postop right BKA, with stable postop wound. There is no evidence of advancing ischemia, and the stump appears to be healing without signs of infection. We will continue her every other day dressing changes and she should be able to be managed at the [facility] when she is ready for transfer. Current Visit: No (3) Open wound of hand Status: Acute Assessment and plan: 01/07/2017. Open wound of left hand, status post debridement with partial amputation. These wounds are a bit dry and could use some clean up, so we will plan to debride these areas at the time of her right AKA tomorrow. 01/10/2017. Left hand wound appears stable at this time. We will await the final culture results before making any changes. Dr. Patel is following with administering antibiotics during dialysis, and Dr. Gale will help with making any antibiotic changes. Current Visit: No Subjective Patient reports: Present: other (Ana is rather quiet today, awake and not answering questions but she does cry quietly when we manipulate her wounds.) Exam - Constitutional Vitals: Period Temp Pulse Resp BP Sys/Jaimes Pulse Ox Last 24 Hr 97.6 F-98.6 F 80-90 16-20 81-101/47-58 97-100 - Extremities Exam Extremities exam: Present: other (Left hand wound remains pink over the medial finger proximally though there is slight drying at the distal portion. I see no advancing ischemia, no erythema, no drainage or swelling. Right BKA stump is clean and dry without any ischemic change. Her sacrum will be evaluated later this morning but nurses report no acute change.) Results - Labs CBC & BMP: 01/10/17 07:31 01/10/17 07:05 Lab Results: I have reviewed the past 24 hour labs (White count has dropped minimally to 25.4. Her micro results from the left hand wound are still pending.) Quality Measures - VTE Contraindication to Mechanical VTE Prophylaxis: Ischemic Vascular Disease
--- NOTE | 2017-01-10 11:00 | Infectious Disease Progress ---
Assessment and Plan (1) Decubitus ulcer of sacral region, unstageable Status: Acute Assessment and plan: Continue meropenem and vancomycin along with wound care. Current Visit: Yes (2) Diabetes mellitus Status: Chronic Current Visit: Yes Qualifiers: Diabetes mellitus type: type 2 Chronic kidney disease stage: on chronic dialysis (3) Functional quadriplegia Status: Chronic Current Visit: Yes (4) Diabetes mellitus Status: Acute Current Visit: No (5) End stage renal disease on dialysis Status: Acute Current Visit: No (6) Open wound of hand Status: Acute Assessment and plan: Left hand wound which is infected. She has severe peripheral vascular disease. She is on empiric broad-spectrum antibiotics but with her severe. Am not sure we got a good healing of this wound. Overall prognosis grim. Current Visit: No Infectious Disease - PN: Subj Interval history: Patient developed fever. She does not really communicate, mainly lies in the bed cries intermittently. Infectious Disease Exam (PN) - Constitutional Vitals: Temp Pulse Resp BP Pulse Ox 97.7 F 80 18 101/58 100 01/10/17 04:00 01/10/17 04:00 01/10/17 04:00 01/10/17 06:00 01/10/17 04:00 General appearance: mild distress Exam: General appearance: Extremely cachectic and chronically ill-appearing - Eye Eye exam: Present: EOMI. no icterus Pupils: Present: OXANA - ENT ENT exam: no oral exudates - Respiratory Respiratory exam: vesicular BS, no crepitations or wheezes - Cardiovascular Cardiovascular exam: regular rate and rhythm, no murmurs - GI/Abdominal GI/Abdominal exam: normal bowel sounds, soft, non-tender, no organomegaly or mass - Extremities Exam Extremities exam: eschar to left hand where fourth and fifth fingers were amputated. There is some hyperpigmentation of the skin of the dorsum of the hand. Right AKA stump with sutures no drainage no surrounding redness. Sacral wound noted, unstageable with overlying dark eschar. No drainage from the periphery. - Skin Skin exam: no rash Results - Labs CBC & BMP: 01/10/17 07:31 01/10/17 07:05 Lab Results: I have reviewed the past 24 hour labs (Gram-positive cocci and gram -negative rods growing from left hand wound) Quality Measures - VTE Contraindication to Mechanical VTE Prophylaxis: Ischemic Vascular Disease
[2017-01-10] MEDS ORDERED: LIDOCAINE 2%/EPI 20 ML VIAL ONE (13:58)
[2017-01-10] MEDS ORDERED: CHLORHEXIDINE 0.12% ORAL RINSE 60 ML BOTTLE SWISH/SPIT ONE (14:03)
--- NOTE | 2017-01-10 15:19 | Hospitalist Progress Note ---
Assessment and Plan (1) Peripheral vascular disease due to secondary diabetes mellitus Problem details: S/p transmetatarsal amputation of the right forefoot. Also with new c/o of pain in the left lateral foot and lower leg. Status: Chronic Current Visit: No (2) Ischemia of foot Problem details: Worsening ischemic changes of the right transmetatarsal amputation stump. New ulcers and eschars of the left foot. Status: Chronic Current Visit: No (3) Poorly controlled type 1 diabetes mellitus Status: Chronic Current Visit: No (4) End stage renal disease Status: Chronic Assessment and plan: Continue with scheduled hemodialysis. Current Visit: No (5) Noncompliance Status: Chronic Current Visit: No (6) ESRD (end stage renal disease) on dialysis Status: Chronic Current Visit: No (7) Dry gangrene Status: Chronic Assessment and plan: Broad-spectrum antibiotics. Current Visit: No (8) Dementia Status: Chronic Current Visit: No (9) Sacral decubitus ulcer, stage II Status: Chronic Current Visit: Yes Hospitalist: Subjective Interval history: The patient is resting no acute changes. Continues with broad-spectrum antibiotics. Continue with schedule hemodialysis for this patient. Afebrile. CBC, BMP in a.m. Exam - Constitutional Vitals: Period Temp Pulse Resp BP Sys/Jaimes Pulse Ox Last 24 Hr 96.4 F-98.6 F 79-90 16-20 81-101/47-58 95-100 General appearance: under weight - Head Head exam: Present: normal inspection - Respiratory Respiratory exam: Present: clear to auscultation bilaterally - Cardiovascular Cardiovascular exam: Present: regular rate and rhythm - GI/Abdominal GI/Abdominal exam: Present: normal bowel sounds - Neurological Exam Neurological exam: Present: alert - Psychiatric Psychiatric exam: Present: flat affect - Skin Skin exam: Present: dry, other (Sacral decubiti) Results - Labs CBC & BMP: 01/10/17 07:31 01/10/17 07:05 Quality Measures - VTE Contraindication to Mechanical VTE Prophylaxis: Ischemic Vascular Disease
[2017-01-10] MEDS: MEROPENEM 1,000 MG in SODIUM CHLORIDE 0.9% 100 ML IV SCH (18:02)
[2017-01-10] MEDS: INSULIN GLARGINE 100 UNIT/ML SUBCUT SCH (22:47)
[2017-01-11] MEDS: SODIUM CHLORIDE 0.9% 250 ML IV SCH ×2 (04:06→15:00)
[2017-01-11] MEDS: LEVOTHYROXINE 25 MCG TABLET PO SCH (06:43)
[2017-01-11 06:52] LABS: Calcium 8.6 MG/DL (8.5-10.1); Magnesium 2.4 MG/DL (1.8-2.4); Osmolality,Calculated 284.7 MOS/KG (273-304); Potassium 4.7 MMOL/L (3.5-5.1)
--- NOTE | 2017-01-11 07:20 | Hospitalist Progress Note ---
Assessment and Plan - Time spent with patient Time spent with patient: Less than 30 minutes (1) Ischemia of foot Problem details: Worsening ischemic changes of the right transmetatarsal amputation stump. New ulcers and eschars of the left foot. Status: Chronic Assessment and plan: Patient is now 3 days postop right razby-zny-bcra amputation. She is been followed by general surgery. Continuing wound care. Current Visit: No (2) Peripheral vascular disease due to secondary diabetes mellitus Problem details: S/p transmetatarsal amputation of the right forefoot. Also with new c/o of pain in the left lateral foot and lower leg. Status: Chronic Assessment and plan: Patient has known peripheral vascular disease due to his diabetes mellitus and is undergone right ifymi-vnf-[id number] amputation earlier in the week and also had an open wound to the left hand which is now status post debridement with partial amputation. General surgery is continuing to follow. Continuing IV antibiotics and local wound care. Current Visit: No (3) Sacral decubitus ulcer, stage II Status: Chronic Assessment and plan: General surgery has assessed at this time and appears to be clean and likely not the source of her sepsis. Continuing antibiotics and local wound care. 01/06/17: Continuing local wound care. Appreciate general surgery input. 01/11/17: Continuing meropenem and vancomycin along with wound care. Being followed by both Dr. Rice and infectious disease. Current Visit: Yes (4) Diabetes mellitus Status: Chronic Assessment and plan: Blood sugars fairly well controlled. Will continue current medical regimen. 01/06/17: Blood sugars are well controlled. Continue current regimen. 01/11/17: Continuing Accu-Cheks with sliding scale and following blood sugars. Current Visit: Yes Qualifiers: Diabetes mellitus type: type 2 Chronic kidney disease stage: on chronic dialysis (5) ESRD (end stage renal disease) on dialysis Status: Chronic Assessment and plan: Nephrology seen in assisting with dialysis. She is on a Friday schedule. 01/11/17: Nephrology continuing to follow and provide hemodialysis. Current Visit: No (6) Sepsis Status: Acute Assessment and plan: Patient was admitted with sepsis likely secondary to community-acquired pneumonia versus sacral decubitus, although less likely. Will await cultures and continue empiric IV antibiotic therapy. We will follow-up chest x-ray today. 01/06/17: She has defervesced and been afebrile now for about 24 hours. However she has persistent leukocytosis with white blood count of around 20. Will continue empiric IV antibiotics while awaiting culture results. 01/11/17: Continuing IV antibiotics however sepsis is now resolved. She continues to have a persistent leukocytosis. She is being followed by ID. Current Visit: No (7) Atelectasis of left lung Status: Resolved Assessment and plan: Repeating chest x-ray today. Continuing IV Levaquin for presumed left lower lobe community-acquired pneumonia. 01/06/17: Repeat chest x-ray revealed mild left basilar pneumonia and right basilar atelectasis. Will continue IV antibiotic therapy for presumed left lower lobe community-acquired pneumonia along with O2 and pulmonary toilet. Current Visit: Yes Hospitalist: Subjective Interval history: Chart reviewed and patient examined. Ms. Leonard has no complaints at this time. However she is disoriented and states that she does not know who she is. She does answer some questions and will obey simple commands. Exam - Constitutional Vitals: Period Temp Pulse Resp BP Sys/Jaimes Pulse Ox Last 24 Hr 96.4 F-100.8 F 79-108 16-21 78-98/50-59 95-100 General appearance: no acute distress - Head Head exam: Present: normocephalic, atraumatic - Eye Eye exam: Present: EOMI Pupils: Present: OXANA - ENT ENT exam: Present: normal oropharynx - Neck Neck exam: Absent: lymphadenopathy, meningismus, tenderness, thyromegaly - Respiratory Respiratory exam: Present: clear to auscultation bilaterally. Absent: rales, rhonchi, wheezes - Cardiovascular Cardiovascular exam: Present: regular rate and rhythm - GI/Abdominal GI/Abdominal exam: Present: normal bowel sounds, soft. Absent: mass, tenderness - Extremities Exam Extremities exam: Present: other (New right gelhn-wvs-nqth amputation with dressing intact; old left below the knee amputation well healed; dressing to the left hand warm and dry). Absent: calf tenderness, edema - Back Exam Back exam: Present: normal inspection - Neurological Exam Neurological exam: Present: alert, CN II-XII intact, other (Disoriented 3) - Psychiatric Psychiatric exam: Present: flat affect. Absent: agitated, anxious - Skin Skin exam: Present: warm, dry Results - Labs CBC & BMP: 06/02/17 07:31 01/11/17 06:19 Lab Results: I have reviewed the past 24 hour labs Quality Measures - VTE Contraindication to Mechanical VTE Prophylaxis: Ischemic Vascular Disease
[2017-01-11] MEDS: INSULIN REGULAR 100 UNIT/ML SUBCUT SCH ×4 (07:54→20:32)
[2017-01-11] MEDS: PANTOPRAZOLE 40 MG VIAL IV SCH (08:03)
[2017-01-11 08:15] LABS: Basophils # 0.1 10*3/uL (0.0-0.2); Basophils % 0.2 % (0.0-0.8); Eosinophils # 0.4 10*3/uL (0.0-0.87); Eosinophils % 1.5 % (0.00-10.9); Hematocrit 27.7 VOL% (35.7-47.0); Hemoglobin 8.9 GM/DL (12.0-16.0); Immature Granulocytes % 1.3 %; Immature Granulocytes Absolute 0.32 #; Lymphocytes # 1.1 10*3/uL (1.4-4.0); Lymphocytes % 4.6 % (21.3-54.2); Mean Corpuscular HGB Conc 32.1 GM/DL (32-36); Mean Corpuscular Hemoglobin 28 PG (27-34); Mean Platelet Volume 10.6 FL (9.6-12.0); Monocytes # 2.4 10*3/uL (0.11-0.8); Monocytes % 9.7 % (1.7-12.7); NRBC # 0.02 10*3/uL; Neutrophils # 20.1 10*3/uL (1.4-7.4); Neutrophils % 82.7 % (38.7-73.9); Platelet Count 513 T/CUMM (130-400); Red Blood Count 3.22 MC/CUMM (3.8-5.5); White Blood Count 24.3 T/CUMM (4-12)
[2017-01-11] MEDS: SODIUM HYPOCHLORITE 0.25% IRRIG 473 ML BOTTLE TOP SCH ×2 (09:00→14:35)
[2017-01-11] MEDS: COLLAGENASE OINT 30 GM TUBE TOP SCH ×2 (09:00→14:35)
[2017-01-11] MEDS: SKIN HEALING OINT (AQUAPHOR) 50 GM TUBE TOP SCH ×2 (09:00→14:35)
[2017-01-11 09:07] LABS: Hypochromasia 1+; Lymphocytes 6 % (20-55); Microcytosis 1+; Ovalocytes Slight; Platelet Estimate Increased; Segmented Neutrophils 87 % (50-85); Total Cells Counted 100
--- NOTE | 2017-01-11 09:44 | Event Note ---
01/11/2017. Patient is in dialysis at this time and will plan to change her's stump dressing on Friday
--- NOTE | 2017-01-11 13:26 | Dialysis Note ---
Dialysis Note - Dialysis Note S: Tolerating routine CHD s complications. O: VSS A: ESRD on CHD. P: Continue routine CHD as prescribed. Next scheduled routine CHD scheduled for Friday. carton and can supply supervisor to HD unit.
[2017-01-11] MEDS ORDERED: VANCOMYCIN INJ 500 MG in SODIUM CHLORIDE 0.9% 100 ML IV ONE (18:00)
[2017-01-11] MEDS: MEROPENEM 1,000 MG in SODIUM CHLORIDE 0.9% 100 ML IV SCH (19:18)
[2017-01-11] MEDS: INSULIN GLARGINE 100 UNIT/ML SUBCUT SCH (20:32)
[2017-01-12] MEDS: SODIUM CHLORIDE 0.9% 250 ML IV SCH ×2 (02:30→15:20)
[2017-01-12] MEDS: LEVOTHYROXINE 25 MCG TABLET PO SCH (06:08)
[2017-01-12] MEDS: DEXTROSE 50% 25 GM/50 ML VIAL IV PRN (06:51)
--- NOTE | 2017-01-12 06:52 | Hospitalist Progress Note ---
Assessment and Plan - Time spent with patient Time spent with patient: Less than 30 minutes (1) Ischemia of foot Problem details: Worsening ischemic changes of the right transmetatarsal amputation stump. New ulcers and eschars of the left foot. Status: Chronic Assessment and plan: Patient is now 3 days postop right iyksb-kem-vxzj amputation. She is been followed by general surgery. Continuing wound care. 01/12/17: Postop day for right bzbih-[id number]-ymdj amputation. General surgery continues to follow. Continuing antibiotics and wound care. Note Dr. Rice plans for dressing changes tomorrow. Current Visit: No (2) Peripheral vascular disease due to secondary diabetes mellitus Problem details: S/p transmetatarsal amputation of the right forefoot. Also with new c/o of pain in the left lateral foot and lower leg. Status: Chronic Assessment and plan: Patient has known peripheral vascular disease due to his diabetes mellitus and is undergone right dgugl-yqt-hmui amputation earlier in the week and also had an open wound to the left hand which is now status post debridement with partial amputation. General surgery is continuing to follow. Continuing IV antibiotics and local wound care. 01/12/17: As above continuing IV antibiotics and local wound care. General surgery continues to follow. Current Visit: No (3) Sacral decubitus ulcer, stage II Status: Chronic Assessment and plan: General surgery has assessed at this time and appears to be clean and likely not the source of her sepsis. Continuing antibiotics and local wound care. 01/06/17: Continuing local wound care. Appreciate general surgery input. 01/11/17: Continuing meropenem and vancomycin along with wound care. Being followed by both Dr. Rice and infectious disease. 01/12/17: Continuing IV antibiotics along with local wound care as noted above. Infectious disease and general surgery continue to follow. Current Visit: Yes (4) Diabetes mellitus Status: Chronic Assessment and plan: Blood sugars fairly well controlled. Will continue current medical regimen. 01/06/17: Blood sugars are well controlled. Continue current regimen. 01/11/17: Continuing Accu-Cheks with sliding scale and following blood sugars. 01/12/17: Continuing Accu-Cheks with sliding scale and making adjustments to optimize her blood sugar control. Current Visit: Yes Qualifiers: Diabetes mellitus type: type 2 Chronic kidney disease stage: on chronic dialysis (5) ESRD (end stage renal disease) on dialysis Status: Chronic Assessment and plan: Nephrology seen in assisting with dialysis. She is on a Friday schedule. 01/11/17: Nephrology continuing to follow and provide hemodialysis. 01/12/17: Continuing hemodialysis per nephrology. Current Visit: No (6) Sepsis Status: Resolved Assessment and plan: Patient was admitted with sepsis likely secondary to community-acquired pneumonia versus sacral decubitus, although less likely. Will await cultures and continue empiric IV antibiotic therapy. We will follow-up chest x-ray today. 01/06/17: She has defervesced and been afebrile now for about 24 hours. However she has persistent leukocytosis with white blood count of around 20. Will continue empiric IV antibiotics while awaiting culture results. 01/11/17: Continuing IV antibiotics however sepsis is now resolved. She continues to have a persistent leukocytosis. She is being followed by ID. 01/12/17: Continuing IV antibiotics. Sepsis is now resolved. She has a persistent leukocytosis. We will follow-up CBC in the a.m. Current Visit: No (7) Atelectasis of left lung Status: Resolved Assessment and plan: Repeating chest x-ray today. Continuing IV Levaquin for presumed left lower lobe community-acquired pneumonia. 01/06/17: Repeat chest x-ray revealed mild left basilar pneumonia and right basilar atelectasis. Will continue IV antibiotic therapy for presumed left lower lobe community-acquired pneumonia along with O2 and pulmonary toilet. Current Visit: Yes Hospitalist: Subjective Interval history: No new issues overnight. Patient appears to be more alert and she is oriented to person and place today. Exam - Constitutional Vitals: Period Temp Pulse Resp BP Sys/Jaimes Pulse Ox Last 24 Hr 98.1 F-99.8 F 86-109 18-20 89-114/46-68 98-100 General appearance: no acute distress - Head Head exam: Present: normocephalic, atraumatic - Eye Eye exam: Present: EOMI - ENT ENT exam: Present: other (Mucous membranes mildly dry) - Neck Neck exam: Absent: lymphadenopathy, meningismus, tenderness, thyromegaly - Respiratory Respiratory exam: Present: clear to auscultation bilaterally. Absent: rales, rhonchi, wheezes - Cardiovascular Cardiovascular exam: Present: regular rate and rhythm. Absent: systolic murmur , tachycardia - GI/Abdominal GI/Abdominal exam: Present: normal bowel sounds, soft. Absent: tenderness, rebound - Extremities Exam Extremities exam: Present: other (Right gdola-ixn-pcxw amputation with dressing intact; old left nvqik-lxv-femn amputation well healed: Left hand with dressing that is warm and dry). Absent: calf tenderness, edema - Back Exam Back exam: Present: normal inspection - Neurological Exam Neurological exam: Present: alert, CN II-XII intact, other (Oriented to person and place) - Psychiatric Psychiatric exam: Present: flat affect. Absent: agitated, anxious - Skin Skin exam: Present: warm, dry. Absent: petechiae Results - Labs CBC & BMP: 01/11/17 07:46 01/11/17 06:19 Lab Results: I have reviewed the past 24 hour labs Quality Measures - VTE Contraindication to Mechanical VTE Prophylaxis: Ischemic Vascular Disease
[2017-01-12] MEDS ORDERED: INSULIN GLARGINE 100 UNIT/ML SUBCUT SCH (06:58)
[2017-01-12] MEDS: INSULIN REGULAR 100 UNIT/ML SUBCUT SCH ×4 (07:41→21:12)
[2017-01-12] MEDS: PANTOPRAZOLE 40 MG VIAL IV SCH (08:10)
[2017-01-12] MEDS: INSULIN GLARGINE 100 UNIT/ML SUBCUT SCH ×2 (09:31→21:18)
[2017-01-12] MEDS: traMADol 50 MG TABLET PO PRN ×2 (09:35→17:53)
[2017-01-12] MEDS: COLLAGENASE OINT 30 GM TUBE TOP SCH (09:49)
[2017-01-12] MEDS: SODIUM HYPOCHLORITE 0.25% IRRIG 473 ML BOTTLE TOP SCH (09:49)
[2017-01-12] MEDS: SKIN HEALING OINT (AQUAPHOR) 50 GM TUBE TOP SCH (09:49)
--- NOTE | 2017-01-12 13:18 | Event Note ---
01/12/2017. Patient is in a sad situation wound care is progressing. We will probably pull the drain from the amputated stump tomorrow she will we stand as far as healing goes.
--- NOTE | 2017-01-12 13:41 | Nephrology Progress Note ---
Nephrology - PN: Subj Interval history: Pt was sleeping comfortably on midmorning rounds. She did not arouse to verbal "good morning". Exam (PN)-Nephrology - Vital Signs Vital signs: Period Temp Pulse Resp BP Sys/Jaimes Pulse Ox Last 24 Hr 97.9 F-99.8 F 86-109 18-20 89-120/46-71 96-100 - General Appearance General appearance: cachectic, chronically ill EENT: ATNC Neck: no JVD Respiratory: kyphosis, clear Cardiology: no murmurs, no rub Gastrointestinal: normoactive bowel sounds, no tenderness Musculoskeletal: deformities, no cyanosis - Lab 01/11/17 07:46 01/11/17 06:19 Most recent lab results Calcium 8.6 MG/DL (8.5-10.1) 01/11/17 06:19 Phosphorus 0.6 MG/DL (2.5-4.9) L 01/10/17 07:05 Magnesium 2.4 MG/DL (1.8-2.4) 01/11/17 06:19 Assessment and Plan (1) ESRD (end stage renal disease) on dialysis Problem details: No acute indication for HD at this time. Tolerated routine CHD yesterday without apparent complications. Status: Chronic Assessment and plan: Next scheduled routine CHD on Friday. Current Visit: No
[2017-01-12] MEDS: MEROPENEM 1,000 MG in SODIUM CHLORIDE 0.9% 100 ML IV SCH (17:40)
[2017-01-12] MEDS: MORPHINE 2 MG/1 ML SYRINGE IV PRN (21:15)
[2017-01-13 05:13] LABS: Basophils # 0.1 10*3/uL (0.0-0.2); Basophils % 0.4 % (0.0-0.8); Eosinophils # 0.6 10*3/uL (0.0-0.87); Eosinophils % 2.6 % (0.00-10.9); Hematocrit 22.3 VOL% (35.7-47.0); Hemoglobin 7.2 GM/DL (12.0-16.0); Immature Granulocytes % 1.7 %; Immature Granulocytes Absolute 0.37 #; Lymphocytes # 1.4 10*3/uL (1.4-4.0); Lymphocytes % 6.4 % (21.3-54.2); Mean Corpuscular HGB Conc 32.3 GM/DL (32-36); Mean Corpuscular Hemoglobin 28 PG (27-34); Mean Corpuscular Volume 86.1 FL (87-102); Mean Platelet Volume 10.2 FL (9.6-12.0); Monocytes # 2.3 10*3/uL (0.11-0.8); Monocytes % 10.3 % (1.7-12.7); NRBC # 0.04 10*3/uL; Neutrophils # 17.6 10*3/uL (1.4-7.4); Neutrophils % 78.6 % (38.7-73.9); Platelet Count 505 T/CUMM (130-400); Red Blood Count 2.59 MC/CUMM (3.8-5.5); Red Cell Distribution Width 18.9 % (9.3-17.3); White Blood Count 22.3 T/CUMM (4-12)
[2017-01-13 05:39] LABS: Hypochromasia 1+; Microcytosis 1+
[2017-01-13 05:40] LABS: Anisocytosis 1+; Platelet Estimate Increased
[2017-01-13] MEDS: SODIUM CHLORIDE 0.9% 250 ML IV SCH (05:46)
[2017-01-13 05:55] LABS: Calcium 7.7 MG/DL (8.5-10.1); Osmolality,Calculated 282.2 MOS/KG (273-304); Potassium 5.5 MMOL/L (3.5-5.1); Prealbumin 8.1 MG/DL (20-40)
[2017-01-13] MEDS: LEVOTHYROXINE 25 MCG TABLET PO SCH (06:01)
[2017-01-13] MEDS: INSULIN GLARGINE 100 UNIT/ML SUBCUT SCH (08:16)
[2017-01-13] MEDS: INSULIN REGULAR 100 UNIT/ML SUBCUT SCH ×3 (08:16→16:19)
[2017-01-13] MEDS: PANTOPRAZOLE 40 MG VIAL IV SCH (08:17)
--- NOTE | 2017-01-13 08:26 | Nephrology Progress Note ---
Nephrology - PN: Subj Interval history: Ms. Leonard is seen in follow-up of her end-stage renal disease. She is alert this morning and does volunteer that she is "wide awake". Her chest is clear and she seems to be in no pain. Plan is to continue with her Friday hemodialysis. Exam (PN)-Nephrology - Vital Signs Vital signs: Period Temp Pulse Resp BP Sys/Jaimes Pulse Ox Last 24 Hr 97.9 F-99.9 F 97-104 18-18 99-120/59-73 94-100 - Lab 01/13/17 05:00 01/13/17 05:00 Most recent lab results Calcium 7.7 MG/DL (8.5-10.1) L 01/13/17 05:00 Phosphorus 0.6 MG/DL (2.5-4.9) L 01/10/17 07:05 Magnesium 2.4 MG/DL (1.8-2.4) 01/11/17 06:19 Assessment and Plan (1) End stage renal disease Status: Chronic Assessment and plan: Hemodialysis today Current Visit: No (2) Peripheral vascular disease due to secondary diabetes mellitus Problem details: S/p transmetatarsal amputation of the right forefoot. Also with new c/o of pain in the left lateral foot and lower leg. Status: Chronic Current Visit: No
[2017-01-13] MEDS: SKIN HEALING OINT (AQUAPHOR) 50 GM TUBE TOP SCH (09:31)
[2017-01-13] MEDS: SODIUM HYPOCHLORITE 0.25% IRRIG 473 ML BOTTLE TOP SCH (09:31)
[2017-01-13] MEDS: COLLAGENASE OINT 30 GM TUBE TOP SCH (09:31)
[2017-01-13 10:50] VITALS: BP 97/57
[2017-01-13] MEDS: MORPHINE 2 MG/1 ML SYRINGE IV PRN (10:56)
--- NOTE | 2017-01-13 11:03 | Hospitalist Progress Note ---
Assessment and Plan (1) Open wound of hand Status: Acute Assessment and plan: Necrosis due to poor circulation. Patient will know her own fingers off if you do not wrap her hand. Continue meropenem and daptomycin and wound care. We have referred to LTAC for 2-4 weeks of IV daptomycin Current Visit: No (2) Sacral decubitus ulcer Status: Chronic Assessment and plan: Wound is clean growing ESBL E. coli and VRE and staph epi, continue meropenem and daptomycin Current Visit: Yes Qualifiers: Pressure ulcer stage: stage 3 Qualified Code(s): L89.153 - Pressure ulcer of sacral region, stage 3 (3) Poorly controlled type 1 diabetes mellitus Status: Chronic Assessment and plan: Blood sugars too low decrease Lantus 7 units to once a day Current Visit: No (4) Peripheral vascular disease due to secondary diabetes mellitus Problem details: S/p transmetatarsal amputation of the right forefoot. Also with new c/o of pain in the left lateral foot and lower leg. Status: Chronic Assessment and plan: Status post multiple amputations due to poor blood supply. Current Visit: No (5) Anemia Status: Chronic Assessment and plan: 2 units of packed red blood cells with dialysis tomorrow Current Visit: No Qualifiers: Other causes of anemia: chronic disease, kidney (6) ESRD (end stage renal disease) on dialysis Status: Chronic Assessment and plan: Receives dialysis on Friday. Current Visit: No Hospitalist: Subjective Interval history: Had long discussion with Dr. Gale about patient. She has necrosis of her left hand and will lose that hand. She has poor circulation which cannot be fixed. I meeting later on with her daughter to discuss her prognosis. Dr. Gale currently recommends 2-4 more weeks of IV daptomycin. We are looking into LTAC for IV abx and wound care. Has brownish/orange stool. Exam - Constitutional Vitals: Period Temp Pulse Resp BP Sys/Jaimes Pulse Ox Last 24 Hr 97.9 F-99.9 F 94-104 18-18 97-120/57-73 94-100 Exam: Heart Rate-[RRR] Lungs-[CTAB] GI-[+bs soft, NT] Ext-necrotic left hand, bilateral LE amputations wounds wrapped Neuro [Motor 5/5], [eyes open but no indication of awareness] psych cannot evaluate General [no acute distress] Results - Labs CBC & BMP: 01/13/17 05:00 01/13/17 05:00 Lab Results: I have reviewed the past 24 hour labs Labs: Wound culture from 01/08/2017 growing ESBL E. coli, staph epi and VRE enterococcus Quality Measures - VTE Contraindication to Mechanical VTE Prophylaxis: Ischemic Vascular Disease
[2017-01-13] MEDS ORDERED: SODIUM CHLORIDE 0.9% 250 ML IV PRN (11:08)
--- NOTE | 2017-01-13 11:24 | Infectious Disease Progress ---
Assessment and Plan (1) Decubitus ulcer of sacral region, unstageable Status: Acute Assessment and plan: Continue antibiotics along with wound care. Current Visit: Yes (2) Diabetes mellitus Status: Chronic Current Visit: Yes Qualifiers: Diabetes mellitus type: type 2 Chronic kidney disease stage: on chronic dialysis (3) Functional quadriplegia Status: Chronic Current Visit: Yes (4) Diabetes mellitus Status: Acute Current Visit: No (5) End stage renal disease on dialysis Status: Acute Current Visit: No (6) Open wound of hand Status: Acute Assessment and plan: Left hand wound which is infected with multiple organisms including MDRO's. She has severe peripheral vascular disease. Recommendations: 1. Agree with daptomycin but the dose has to be decreased to 4 mg/kg every 48 hours 2. De-escalate from meropenem to ertapenem renally dosed at 500 mg daily, as we do not need Pseudomonas coverage 3. We can treat her for 2 weeks since she had debridement of the infected tissue Overall prognosis is dismal. Comfort care should be considered. Current Visit: No Infectious Disease - PN: Subj Interval history: No acute events over the weekend progresses. Patient does not speak. She is noted to have been afebrile. Infectious Disease Exam (PN) - Constitutional Vitals: Temp Pulse Resp BP Pulse Ox 98.8 F 96 H 18 97/57 96 01/13/17 10:48 01/13/17 10:48 01/13/17 10:48 01/13/17 10:48 01/13/17 10:48 General appearance: no acute distress Exam: General appearance: Extremely cachectic and chronically ill-appearing, awake but does not talk - Eye Eye exam: Present: EOMI. no icterus Pupils: Present: OXANA - ENT ENT exam: no oral exudates - Respiratory Respiratory exam: vesicular BS, no crepitations or wheezes - Cardiovascular Cardiovascular exam: regular rate and rhythm, no murmurs - GI/Abdominal GI/Abdominal exam: normal bowel sounds, soft, non-tender, no organomegaly or mass - Extremities Exam Extremities exam: Left hand and right AKA stump bandaged - Skin Skin exam: no rash Results - Labs CBC & BMP: 01/13/17 05:00 01/13/17 05:00 Lab Results: I have reviewed the past 24 hour labs (Wound to left hand cultured positive for VRE, MRSE, and ESBL E. coli) Quality Measures - VTE Contraindication to Mechanical VTE Prophylaxis: Ischemic Vascular Disease
[2017-01-13] MEDS ORDERED: SODIUM CHLORIDE 0.9% IV SCH (12:30)
[2017-01-13] MEDS ORDERED: DAPTOMYCIN IV SCH (12:30)
[2017-01-13] MEDS ORDERED: ERTAPENEM 500 MG in SODIUM CHLORIDE 0.9% 100 ML IV SCH (13:00)
--- NOTE | 2017-01-13 13:41 | General Surgery Progress Note ---
Assessment and Plan - Time spent with patient Time spent with patient: Less than 30 minutes (1) Above knee amputation of right lower extremity Status: Acute Assessment and plan: Status post right AKA dressing is dry moderate pain. Hand wound is clean and care is beginning there. Patient appears to be stable postop 01/13/2017. The incision of the right AKA looks good at this point with no sign of any gross infection and the drain was removed. The area on the right gluteal region is not doing as well as I like to see it the eschar is still present no fluctuance noted we did but there is little skin loss around the edges of it. Patient has his hand wound the left hand wound that is fairly clean but looks a little dry at this point time. Distally he may have another little superficial skin loss we will watch that for now. Current Visit: Yes Subjective Patient reports: Present: no new complaints, afebrile Exam - Constitutional Vitals: Period Temp Pulse Resp BP Sys/Jaimes Pulse Ox Last 24 Hr 98.1 F-99.9 F 94-104 18-18 97-120/57-73 94-100 General appearance: mild distress - Head Head exam: Present: normal inspection - ENT ENT exam: Present: normal exam - Neck Neck exam: Present: normal inspection - Respiratory Respiratory exam: Present: rales - Cardiovascular Cardiovascular exam: Present: RRR - GI/Abdominal GI/Abdominal exam: Present: hypoactive bowel sounds, soft. Absent: tenderness - Extremities Exam Extremities exam: Present: other (Wound of the left AKA is looking good and clean without sign of infection and the drain was removed. Wound of the right gluteal area does not look as good as I would like to see it look. There was some changes in skin around it which I do not know if this new pressure areas at this point.) - Neurological Exam Neurological exam: Present: alert, oriented X3, CN II-XII intact - Skin Skin exam: Present: normal color Results - Labs CBC & BMP: 01/13/17 05:00 01/13/17 05:00 Lab Results: I have reviewed the past 24 hour labs Quality Measures - VTE Contraindication to Mechanical VTE Prophylaxis: Ischemic Vascular Disease
[2017-01-13] MEDS ORDERED: fentaNYL 25 MCG/HR PATCH TRANSDERM SCH (14:30)
--- NOTE | 2017-01-13 16:08 | Post Interventional Procedure ---
Pre-op diagnosis: multiple soft tissue wounds, new AKA Post-op diagnosis: same Procedure: central line placement Contrast: none Flouroscopy: 0.1 min Radiologist: Edward Oden Anesthesia: local Specimens: none sent Estimated blood loss: minimal (2 mL) Complications: none Condition: stable Description/Findings: left IJ triple lumen central line placement done and catheter is ready for use. Assessment and Plan - Time spent with patient Time spent with patient: Less than 30 minutes
--- NOTE | 2017-01-13 16:13 | Interventional Radiology Rpt ---
IR cvc insert nt >5, US guide vascular access Central Line placement using fluoroscopic and ultrasound guidance Ultrasound of the left neck Clinical Information: 46-year-old female with diabetes peripheral vascular disease multiple septations and soft tissue ulcerations including sacral decubitus ulcers and right hand soft tissue wound requiring several weeks of intravenous metabolic administration. However, the patient's peripheral vasculature is limited and central line placement is requested for antibiotic administration. This patient is not a good indication for PICC line. A tunneled central line could be considered although possibility of infection remains a consideration with a tunneled central catheter. Physician[s]: Dr. Oden Procedure: The patient was advised of the benefits, risks, and alternatives of the procedure and informed consent was obtained. A time out was performed with verification of the patient's name, MRN, site of procedure, and type of procedure to be performed. The patient was positioned in the supine position on the angiographic table. The site was prepped and draped in the usual sterile fashion. Local anesthesia only was used for the procedure. A steel sampler radiograph reveals no relevant abnormality. The neck and anterior chest wall were anesthetized with lidocaine. The left internal jugular vein was accessed using a microintroducer needle via a lateral approach with ultrasound guidance. Ultrasound image capture of vascular access was obtained for the patient's permanent record. A 0.018" cope wire was advanced into the superior vena cava, the needle was removed and a microintroducer sheath was placed. An Amplatz wire was then passed into the inferior vena cava. An incision was made at the puncture site using a scalpel. The tract was serially dilated over the wire. A 7 Maltese triple lumen 16 cm Arrow central venous catheter was placed with its tip at the cavoatrial junction under fluoroscopic guidance. The ports aspirate and flush freely. The catheter was sutured in place using 3-0 silk and covered with a sterile dressing. The patient tolerated the procedure well and was returned to the PRU in stable condition. EBL: < 5 mL. Complications: None. Total Fluoroscopy Time: 0.1 minutes. Total number of images for the procedure: 27 Conclusion: Successful placement of a triple lumen central venous catheter via the left internal jugular vein. The catheter is ready for immediate use. PROCEDURE INTERPRETED AT [facility] DEPARTMENT OF RADIOLOGY Final Report Signed by: Edward Oden
[2017-01-13] MEDS: DEXTROSE 50% 25 GM/50 ML VIAL IV PRN (16:30)
--- NOTE | 2017-01-13 18:28 | Discharge Summary ---
Hospital Course - Hospital Course Hospital Course: 41-year-old [place] female with a history of diabetes and end-stage renal disease admitted for sepsis on January 04, 2017. Patient has poor circulation in his had multiple amputations due to diabetes complicated by peripheral arterial disease. Patient has a stage III chronic decubitus that looks quite bad due to not being turned at home. Family is trying to care for at home but she really belongs in a residential where she could get appropriate care. Patient has ischemia noted on her right lower ankle and leg and left hand causing sepsis. Dr. Sin the second was consulted for Dr. Rice who is taking care of her in the past. Dr. Rice took her for a right AKA and patient also has chronic ischemic left hand with wounds that he debrided in the OR. Patient initially was started on vancomycin and Levaquin. Meropenem was added and Dr. Gale was consulted. Patient is well-known to Dr. Mccormick if she is cared for her multiple occasions and that her infections would never resolved. Found out that she was eating her own fingers off because of the pain. Dr. Gale discontinued the meropenem and recommended treatment with just vancomycin. Wound culture from her decubitus grew Enterococcus faecalis and E. coli ESBL. Wound culture from her left hand grew out E. coli ESBL, staph epi and VRE. Patient was switched to IV daptomycin and Invanz today. Her blood cultures were final no growth. Patient constantly in pain and crying. She was receiving morphine 2 mg IV every 4 hours. She was mildly anemic today and was going to get blood during dialysis tomorrow. I had a meeting with her boyfriend of 28 years and 2 of her 4 daughters. I talked to them about withdrawal of care and compassionate care but they refused and wanted to treat her aggressively. Patient can no longer speak and daughters report she has been altered for over 2 years. Now she just stars and linsey. Patient lost IV access and a central line was placed by interventional radiology for us today. We had already arranged for her to go to LTAC with specialty tomorrow. Dr. Gale feels that she will need 4 weeks total of daptomycin IV but felt that further care was futile as infections would never clear. Patients blood sugar was low and she was given an amp of D50 and bs came back at 145 on recheck. Nursing had constantly been in her room most of the day and had seen her 15 minutes ago and she was fine. Notified by nursing that patient was in distress. When I walked into the room, she had already . No spontaneous respirations, no pulse and no heart beat. Patient at 1655. Family had just gone out to the parking garage and we asked him to come back and informed the family that she had passed. - Time spent with patient Time with patient DS: Greater than 30 minutes (40 min) Diagnosis - Discharge Diagnosis (1) Open wound of hand Status: Acute (2) Sacral decubitus ulcer Status: Chronic (3) Poorly controlled type 1 diabetes mellitus Status: Chronic (4) Peripheral vascular disease due to secondary diabetes mellitus Status: Chronic (5) Anemia Status: Chronic (6) ESRD (end stage renal disease) on dialysis Status: Chronic Discharge Plan - Discharge Data Disposition: - Discharge Medications No Action Insulin Glargine [Lantus] 15 units SUBCUT BEDTIME #1 syringe Bisacodyl Supp [Dulcolax Supp] 10 mg RECTAL DAILY PRN #0 supp PRN Reason: Constipation Gentamicin Inj [Garamycin Inj] 137 mg IV Q72H 28 Days Glucagon 1 mg IM PRN PRN #0 vial PRN Reason: Hypoglycemia w/o IV access Insulin Aspart [NovoLOG FlexPen] See Protocol SUBCUT ACHS #1 applicator Tramadol HCl [Tramadol Tab] 50 mg PO Q6H PRN #20 tablet PRN Reason: Pain Calcium Acetate [Phoslo] 2,001 mg PO TID W/MEALS Acetaminophen Tab [Tylenol Tab] 650 mg PO Q6H PRN #0 tablet PRN Reason: Pain Mild (1-3) Pantoprazole Tab [Protonix Tab] 40 mg PO DAILY tablet - Follow Up or Referral - Forms/Instructions Exam - Constitutional Vitals: Period Temp Pulse Resp BP Sys/Jaimes Pulse Ox Last 24 Hr 98.1 F-99.9 F 94-104 18-18 97-120/57-73 94-100 Discharge Results Procedures and tests throughout hospitalization: Pending Orders 01/08/17 04:52 Antibody Identification Routine Red Blood Cells Leuko Red Routine Type and Screen IN AM 01/13/17 04:57 Antibody Identification Stat Red Blood Cells Leuko Red Stat Type and Screen Stat Labs on day of discharge: Labs from last 24 hours 01/13/17 01/13/17 01/13/17 16:53 16:07 11:08 WBC RBC Hgb Hct MCV MCH MCHC RDW Plt Count MPV Neut % (Auto) Lymph % (Auto) Blount % (Auto) Eos % (Auto) Baso % (Auto) Neut # (Auto) Lymph # (Auto) Blount # (Auto) Eos # (Auto) Baso # (Auto) Immature Gran % Nucleated RBC % Immature Gran # Nucleated RBCs # Platelet Estimate Hypochromasia Anisocytosis Microcytosis Morphology Comment Sodium Potassium Chloride Carbon Dioxide Anion Gap BUN Creatinine GFR Calculation BUN/Creatinine Ratio Glucose POC Glucose 146 H < 20 L* 90 Calculated Osmolality Calcium Prealbumin Blood Type Antibody Screen Antibody Identification Crossmatch 01/13/17 01/13/17 01/13/17 07:06 05:00 05:00 WBC 22.3 H RBC 2.59 L Hgb 7.2 L Hct 22.3 L MCV 86.1 L MCH 28 MCHC 32.3 RDW 18.9 H Plt Count 505 H MPV 10.2 Neut % (Auto) 78.6 H Lymph % (Auto) 6.4 L Blount % (Auto) 10.3 Eos % (Auto) 2.6 Baso % (Auto) 0.4 Neut # (Auto) 17.6 H Lymph # (Auto) 1.4 Blount # (Auto) 2.3 H Eos # (Auto) 0.6 Baso # (Auto) 0.1 Immature Gran % 1.7 Nucleated RBC % 0.2 Immature Gran # 0.37 Nucleated RBCs # 0.04 Platelet Estimate Increased Hypochromasia 1+ Anisocytosis 1+ Microcytosis 1+ Morphology Comment Sodium 134 L Potassium 5.5 H Chloride 101 Carbon Dioxide 26 Anion Gap 12.5 BUN 59 H Creatinine 2.50 H GFR Calculation 17 BUN/Creatinine Ratio 23.00 H Glucose 67 L POC Glucose 51 L Calculated Osmolality 282.2 Calcium 7.7 L Prealbumin 8.1 L Blood Type Antibody Screen Antibody Identification Crossmatch 01/13/17 01/12/17 04:57 20:03 WBC RBC Hgb Hct MCV MCH MCHC RDW Plt Count MPV Neut % (Auto) Lymph % (Auto) Blount % (Auto) Eos % (Auto) Baso % (Auto) Neut # (Auto) Lymph # (Auto) Blount # (Auto) Eos # (Auto) Baso # (Auto) Immature Gran % Nucleated RBC % Immature Gran # Nucleated RBCs # Platelet Estimate Hypochromasia Anisocytosis Microcytosis Morphology Comment Sodium Potassium Chloride Carbon Dioxide Anion Gap BUN Creatinine GFR Calculation BUN/Creatinine Ratio Glucose POC Glucose 152 H Calculated Osmolality Calcium Prealbumin Blood Type O POSITIVE Antibody Screen Positive Antibody Identification Anti-K Crossmatch See Detail DS: Provider Date of admission: 01/04/17 07:22 Primary care physician: Ricarda Orourke MD Attending physician on admission: Karine Norris MD Consults: 01/04/17 09:01 Consult to Physician [CONS] Routine Comment: Consulting Provider: Freddy Rice When should Consulting Provider be notified: Now Person Notified: aware Date Notified: 01/07/17 Time Notified: 10:50 Consult Notification Comment: Dr Rice to see on friday Consult to Physician [CONS] Routine Comment: Consulting Provider: Freddy Patel When should Consulting Provider be notified: Now Person Notified: aware Date Notified: 01/04/17 Time Notified: 08:30 01/04/17 10:13 Consult to Physician [CONS] Routine Comment: Consulting Provider: Jason Sin III. Date Notified: 01/04/17 Time Notified: 10:17 Consult Notification Comment: Dr Sin to see for Dr Rice 01/04/17 11:49 Consult to Dietitian [CONS] Routine Reason for Dietitian: TF-Initiate/Manage Consult Comment: pt not eating 01/06/17 17:53 Consult to Pharmacy [CONS] Routine Reason for Pharmacy Consult: Dose/Manage Antibiotics Adjust Meds Renal Funct 01/07/17 07:03 Consult to Physician [CONS] Routine Comment: sepsis, Sacral wound, LLL PNA Consulting Provider: Sherrie Steiner Person Notified: Jenna Date Notified: 01/07/17 Time Notified: 10:51 01/07/17 09:30 Consult to Anesthesiology [CONS] Routine Consulting Provider: Reason for Anesthesiology: Pre-op Clearance 01/07/17 17:13 Consult to Pharmacy [CONS] Routine Reason for Pharmacy Consult: Dose/Manage Vancomycin 01/13/17 08:49 Consult to Case Mgmt/Social Srvs [CONS] Routine Reason for Case Mgmt/Social Srvs: LTAC Consult Comment: for iv abx and wound care 01/13/17 15:34 Consult to Case Mgmt/Social Srvs [CONS] Routine Reason for Case Mgmt/Social Srvs: Other Consult Comment: neglect, large decubitus, and infection, vunerable adult, suspect check Discharging clinician: Shyann Son MD
[2017-01-14] MEDS ORDERED: INSULIN GLARGINE 100 UNIT/ML SUBCUT SCH (09:00)
== END 2017-01-13 16:55 | disposition expired | DRG 853 ==
LOC: N.ED 05:51 → SUATTDRO 07:22 → N.EDINP 08:20 → N.5E 09:01
PROVIDERS: ADMIT Internal Medicine; ATTEND Internal Medicine